=== PATIENT | female | born 1940 | race Caucasian/White ===

== ENCOUNTER → 2016-06-29 | Outpatient (CLI) | payer MEDICARE ==
--- NOTE | 2016-06-29 08:33 | US ---
EXAMINATION TYPE: US pelvic complete DATE OF EXAM: 06/29/2016 8:10 AM COMPARISON: CT in pacs CLINICAL HISTORY: R39.11 Urinary Hesitancy. Intermittent pelvic pain, 2, para 2 TECHNIQUE: Transvaginal (TV) and Transabdominal (TA) transvaginal ultrasound performed for better ev aluation of the uterus Date of LMP: 25 years ago EXAM MEASUREMENTS: Uterus: 5.4 x 3.5 x 3.8 cm Endometrial Stripe: 0.4 cm Right Ovary: not seen Left Ovary: not seen visualized urinary bladder is unremarkable. 1. Uterus: retroverted, heterogeneous echogenicity without any definite lesions seen at this time 2. Endometrium: appears wnl 3. Right Ovary: not seen due to overlying bowel gas 4. Left Ovary: not seen due to overlying bowel gas 5. Bilateral Adnexa: wnl 6. Posterior cul-de-sac: wnl Uterus is somewhat poorly defined likely due to age-related atrophy IMPRESSION: Exam is somewhat limited.
== END ==
LOC: RADUSWWP 07:02
PROVIDERS: ATTEND Family Medicine
DX: N76.0 Acute vaginitis (principal); R39.11 Hesitancy of micturition; J44.9 Chronic obstructive pulmonary disease, unspecified
CPT/HCPCS: 76830; 76856

== ENCOUNTER → 2016-08-03 | Outpatient (CLI) | payer MEDICARE ==
[2016-08-03 13:22] LABS: Basophils # (A) 0.1 k/uL (0-0.2); Basophils % (A) 1 %; CHCM 33.2; Eosinophils # (A) 0.4 k/uL (0-0.7); Eosinophils % (A) 4 %; HCT 37.9 % (34.0-46.0); HDW 2.65; HGB 12.6 gm/dL (11.4-16.0); Luc # (Auto) 0.27; Luc % (Auto) 3; Lymphocytes # (A) 1.8 k/uL (1.0-4.8); Lymphocytes % (A) 21 %; MCH 31.1 pg (25.0-35.0); MCHC 33.1 g/dL (31.0-37.0); MCV 93.9 fL (80.0-100.0); Mean Platelet Volume 7.2; Monocytes # (A) 0.4 k/uL (0-1.0); Monocytes % (A) 5 %; Neutrophils # (A) 5.5 k/uL (1.3-7.7); Neutrophils % (A) 66 %; RBC 4.04 m/uL (3.80-5.40); WBC 8.3 k/uL (3.8-10.6); WBC (Perox) 8.61
[2016-08-03 13:33] LABS: C Reactive Protein 10.6 mg/L (<10.0)
[2016-08-03 14:22] LABS: Erythrocyte Sedimentation Rate 29 mm/hr (0-20)
--- NOTE | 2016-08-10 12:04 | P.ARTDOP ---
Arterial Doppler LOWER EXTREMITY ARTERIAL DOPPLER: DATE OF SERVICE: 08/03/2016 Reason for study: Buttocks and leg pain with walking. Doppler waveforms: Multiphasic bilaterally throughout. Pulse volume recording: []. Pressure gradients: None. Ankle-brachial indices: Greater than 1 bilaterally. Toe pressures: [] on the right, [] on the left Impression: Normal limited study.
== END | disposition home or self-care (01) ==
LOC: RADUSWWP 12:05
PROVIDERS: ATTEND Physical Medicine & Rehabilitation
DX: M54.5 Low back pain (principal); M47.817 Spondylosis without myelopathy or radiculopathy, lumbosacral region; M51.17 Intervertebral disc disorders with radiculopathy, lumbosacral region; R20.2 Paresthesia of skin; M54.2 Cervicalgia; M79.604 Pain in right leg; M79.605 Pain in left leg; M25.551 Pain in right hip; M25.552 Pain in left hip
CPT/HCPCS: 82550; 85025; 85652; 86140; 93922

== ENCOUNTER → 2016-12-02 | Outpatient (CLI) | payer MEDICARE ==
--- NOTE | 2016-12-05 08:40 | MM ---
Reason for exam: screening (asymptomatic). Last mammogram was performed 1 year and 2 months ago. History: Patient is postmenopausal and history of other cancer. Excisional biopsy of the left breast. 2 excisional biopsies of the right breast. Took estrogen for 2 years. Physical Findings: A clinical breast exam by your physician is recommended on an annual basis and results should be correlated with mammographic findings. MG 3D Screening Mammo W/Cad Bilateral CC and MLO view(s) were taken. XCCL view(s) were taken of the left breast. Prior study comparison: October 13, 2015, bilateral MG 3d screening mammo w/cad. The breast tissue is heterogeneously dense. This may lower the sensitivity of mammography. No significant changes when compared with prior studies. ASSESSMENT: Benign, BI-RAD 2 RECOMMENDATION: Routine screening mammogram of both breasts in 1 year.
== END | disposition home or self-care (01) ==
LOC: RADMAMWWP 12:37
PROVIDERS: ATTEND Family Medicine
DX: Z12.31 Encounter for screening mammogram for malignant neoplasm of breast (principal)
CPT/HCPCS: 77063; G0202

== ENCOUNTER → 2017-04-14 | Outpatient (CLI) | payer MEDICARE ==
[2017-04-14 13:34] LABS: HCT 36.7 % (34.0-46.0); HGB 11.9 gm/dL (11.4-16.0); MCH 29.6 pg (25.0-35.0); MCHC 32.3 g/dL (31.0-37.0); MCV 91.6 fL (80.0-100.0); Mean Platelet Volume 8.1; Platelet Count 266 k/uL (150-450); WBC 11.5 k/uL (3.8-10.6)
--- NOTE | 2017-04-14 13:36 | XR ---
EXAMINATION TYPE: XR chest 2V DATE OF EXAM: 04/14/2017 COMPARISON: 10/17/2013 TECHNIQUE: PA and lateral views submitted. HISTORY: Presurgical FINDINGS: The lungs are clear and there is no pneumothorax, pleural effusion, or focal pneumonia. Degenerativ e change of the spine noted. Interstitium slightly prominent but stable. Atherosclerotic change of th e aorta. Linear density right upper lobe most typical of scar or atelectasis. IMPRESSION: 1. No acute process. Degree of chronic interstitial lung disease in the differential diagnosis correl ate clinically.
[2017-04-14 13:44] LABS: ALT 38 U/L (9-52); AST 18 U/L (14-36); Alkaline Phosphatase 70 U/L (38-126); Anion Gap 9 mmol/L; Blood Urea Nitrogen 17 mg/dL (7-17); Calcium 10.6 mg/dL (8.4-10.2); Carbon Dioxide 30 mmol/L (22-30); Chloride 99 mmol/L (98-107); Glucose 105 mg/dL (74-99); Potassium 4.1 mmol/L (3.5-5.1); Sodium 138 mmol/L (137-145); Total Bilirubin 0.3 mg/dL (0.2-1.3); Total Protein 6.6 g/dL (6.3-8.2)
[2017-04-14 13:49] LABS: Appearance,Urine Clear (Clear); Bilirubin,Urine Negative (Negative); Blood,Urine Negative (Negative); Color,Urine Yellow; Glucose,Urine (UA) Negative (Negative); Ketones,Urine Negative (Negative); Leukocyte Esterase,Urine Negative (Negative); Nitrite,Urine Negative (Negative); Protein,Urine Negative (Negative); Specific Gravity,Urine 1.016 (1.001-1.035); Urobilinogen,Urine <2.0 mg/dL (<2.0)
[2017-04-14 14:02] LABS: Partial Thromboplastin Time 24.6 sec (22.0-30.0); Prothrombin Time 9.8 sec (9.0-12.0)
== END | disposition home or self-care (01) ==
LOC: LABPAT 12:34
PROVIDERS: ATTEND Orthopaedic Surgery
DX: Z01.818 Encounter for other preprocedural examination (principal); Z01.812 Encounter for preprocedural laboratory examination; J84.9 Interstitial pulmonary disease, unspecified; I25.2 Old myocardial infarction; R94.31 Abnormal electrocardiogram [ECG] [EKG]; Z79.01 Long term (current) use of anticoagulants
CPT/HCPCS: 36415; 71046; 80053; 81003; 85027; 85610; 85730; 86850; 86900; 86901; 87070; 93005

== ENCOUNTER 2017-04-24 11:08 | Inpatient (IN) | payer MEDICARE ==
[2017-04-12 23:22] VITALS: BMI 37.3
[~2017-04-24 11:08] MED LIST: ACETAMINOPHEN TAB 500 MG TAB PO ONE; CLINDAMYCIN 900 MG in DEXTROSE 5% IN WATER 50 ML IVPB ONE; DEXAMETHASONE SOD PHOSPHATE 10 MG/ML 1 ML VIAL IV ONE; HYDROmorphone 0.5 MG/0.5 ML SYRINGE IVP PRN; MELOXICAM 7.5 MG TAB PO ONE; ONDANSETRON 4 MG/2 ML VIAL IVP ONE; TRANEXAMIC ACID 1,000 MG in SODIUM CHLORIDE 0.9% 50 ML IVPB ONE
[2017-04-24] MEDS ORDERED: LACTATED RINGERS 1,000 ML IV ONE (11:17)
[2017-04-24] MEDS ORDERED: ROPIVACAINE 246.25 MG, EPINEPHrine 0.5 MG, KETOROLAC 30 MG, cloNIDine HCL/PF 80 MCG, WA... MISCELLANE ONE ×5 (11:34)
[2017-04-24] MEDS ORDERED: SCOPOLAMINE 1.5MG/72HR PATCH TRANSDERM ONE (11:37)
[2017-04-24 11:44] LABS: Glucose,Whole Blood 97 mg/dL (75-99)
[2017-04-24] MEDS ORDERED: TRANEXAMIC ACID 1,000 MG/10 ML VIAL ONE (12:10)
[2017-04-24] MEDS ORDERED: fentaNYL (PF) 50 MCG/ML 2 ML AMP ONE (12:10)
[2017-04-24] MEDS ORDERED: PROPOFOL 10 MG/ML 20 ML VIAL IV ONE (12:10)
[2017-04-24] MEDS ORDERED: ePHEDrine SULFATE/0.9% NACL/PF 50 MG/5 ML SYRINGE IV ONE (12:10)
[2017-04-24] MEDS ORDERED: MIDAZOLAM 2 MG/2 ML VIAL ONE (12:10)
[2017-04-24] MEDS ORDERED: CLINDAMYCIN 1,800 MG in SODIUM CHLORIDE 0.9% IRRIGATIO 3,000 ML IRRIGATION ONE (12:10)
[2017-04-24] MEDS ORDERED: HEPARIN SODIUM,PORCINE 10,000 UNIT/ML 1 ML VIAL ONE (12:10)
[2017-04-24] MEDS ORDERED: SODIUM CHLORIDE 0.9% IRRIG 1,000 ML BTL IRRIGATION ONE (12:10)
[2017-04-24] MEDS ORDERED: SODIUM CHLORIDE 0.9% 100 ML BAG ONE (12:10)
--- NOTE | 2017-04-24 13:35 | FL ---
EXAMINATION TYPE: FL guidance operating room DATE OF EXAM: 04/24/2017 HISTORY: Flouroscopy time 35 seconds of fluoroscopy provided. IMPRESSION: 1. Fluoroscopy time.
--- NOTE | 2017-04-24 13:36 | XR ---
EXAMINATION TYPE: XR Hip Limited RT DATE OF EXAM: 04/24/2017 COMPARISON: NONE HISTORY: Postop TECHNIQUE: One view submitted. FINDINGS: There is a prosthetic hip in near anatomic alignment. Portions of the prostheses not included. IMPRESSION: 1. Postoperative change. Appears in near-anatomic alignment.
--- NOTE | 2017-04-24 13:47 | P.OP ---
Date of Procedure: 04/24/17 Preoperative Diagnosis: Severe Osteoarthritis right hip Postoperative Diagnosis: Severe osteoarthritis right hip Procedure(s) Performed: Right total hip arthroplasty with a direct anterior approach Implants: [employer] nephew Polarstem size 2 standard [employer] R3, 3 hole acetabular shell, 48 mm [employer] reflection 6.5 mm cancellus screw, 20 mm 2 [employer] R3, XLPE 20 acetabular liner [employer]hew Oxinium femoral head 32 m, +0 All components were press-fit. The articulation is Oxinium on polyethylene. Anesthesia: spinal Surgeon: Edy Marte Sdet #1: Augustina Sharma Estimated Blood Loss (ml): 200 (67 mL returned with Cell Saver) Pathology: other (Femoral head) Condition: stable Disposition: PACU Indications for Procedure: After failure of conservative treatment we discussed the surgical and nonsurgical treatment options at length. Patient wishes to proceed with a total hip arthroplasty with a direct anterior approach. Complications specific to this procedure were discussed at length, including but not limited to infection, leg length discrepancy, dislocation, and nerve injury. Patient is aware of all these complications and informed consent was obtained Operative Findings: The operative findings are consistent with severe osteoarthritis of the right hip Description of Procedure: Patient was seen and evaluated in the preoperative area, consent was reviewed, and the surgical site was marked with a skin marker. Patient was then brought to the operating room and given prophylactic antibiotics intravenously. 1 g of Tranexamic acid was also given. A spinal anesthetic was administered by the anesthesia department. The patient was then placed on the [place] table with the bony prominences well-padded. The hip area was then prepped and draped in usual sterile fashion. A universal timeout was then performed, which confirmed the patient's name, surgical site, ALLERGIES, and procedure being performed. Next the incision site was located at 1 cm distal and 1 cm lateral to the anterior superior iliac spine. The skin and subcutaneous tissues were sharply incised. Incision was carefully dissected down to the fascia overlying the tensor fascia maggy muscle. This fascia was then incised in line with the incision. Next, using blunt finger dissection, the tensor fascia maggy muscle was dissected off its investing fascia. The muscle was then carefully retracted laterally with a cobra retractor over the lateral neck of the femur. Next, the circumflex vessels were identified and cauterized using the AquaMantis device. The anterior hip capsule was then exposed. The capsule was then opened and an inverted T fashion. Cobra retractors were then placed intracapsularly. The proximal femur was then visualized. The femoral neck was then osteotomized appropriate level above the lesser trochanter. Small amount of traction was placed with the [place] table. A small wedge of bone was then removed from the remaining femoral head. Next, using a corkscrew femoral head was easily removed from the acetabulum. On gross visual inspection, the femoral head had complete loss of articular cartilage in multiple periarticular osteophytes. Attention was then turned to the acetabulum. the acetabulum was exposed and any remaining labrum was excised. Sequential reaming of the acetabulum was performed using fluoroscopic guidance. When the appropriate size was reached, a trial was then placed. The position and fit of the trial was checked with fluoroscopy. The trial was then removed. Then, using fluoroscopic guidance, the final implant was impacted at 20 of anteversion and 40 of abduction, and fully seated in the acetabulum. 2 screws were then placed in the acetabulum. Again fluoroscopy was used to check position of the screws. Next, the liner was then impacted, with a 20 elevated liner located in the anterior superior quadrant. Component locking was confirmed. Attention was then directed to the femur. With the aid of the [place] table, the femur was externally rotated to approximately 130, extended, and abducted under the opposite leg. A side hook was then placed under the proximal femur, and the side hook elevator was used to elevate the proximal femur. Retractors were then placed. A capsular release was performed, as well as a release of the conjoined tendon, which afforded excellent visualization of the proximal femur. Next, a box osteotome was used to lateralize the proximal femur. A roll hand was then used to locate the femoral canal. Sequential broaching was then performed with appropriate size which afforded excellent fixation in the proximal femur. A trial was then placed with appropriate head and neck, and the hip was gently reduced with the aid of the [place] table. Fluoroscopy was then used to check position of the components, as well as to ensure equal leg lengths. The hip was then gently dislocated and the trials were then removed. Final implants were then impacted and the hip was again reduced. Final fluoroscopic x-rays confirmed that the components were in anatomic position, as well as equal leg lengths. The hip was also taken through range of motion, and found to be stable. The hip was then copiously irrigated with antibiotic solution with pulsatile lavage. The hip was then irrigated with Irrisept solution. The soft tissues were then injected with a ropivacaine solution, which consisted of 246.25 mg of ropivacaine, 0.5 mg of epinephrine, 30 mg of Toradol, 80 g of clonidine, and 48.45 mL of sterile water, for a total of 100 mL of fluid injected. A second dose of 1 g of Tranexamic acid was also given. the fascia was then closed with 2-0 strata fix suture. The subcutaneous tissue was closed with 3-0 Vicryl. The subcuticular tissue was closed with 3-0 strata fix suture. The skin was then closed with Dermabond glue and a sterile silver dressing. The patient was then transferred to the recovery room in stable condition. The diversional therapist's assistant BHUMI Packer was required due to the complexity of surgery, and the need for skilled players assistant for positioning, draping, exposure, retraction, and closure of the wound.
[2017-04-24] MEDS: LACTATED RINGERS 1,000 ML IV SCH (13:57)
[2017-04-24] MEDS ORDERED: HYDROmorphone 0.5 MG/0.5 ML SYRINGE IVP PRN ×2 (14:05)
[2017-04-24] MEDS ORDERED: MAGNESIUM HYDROXIDE 2,400 MG/10 ML CUP PO PRN (14:05)
[2017-04-24] MEDS ORDERED: DIAZEPAM 5 MG TAB PO PRN ×2 (14:05)
[2017-04-24] MEDS ORDERED: NALOXONE 0.4 MG/ML 1 ML VIAL IV PRN (14:05)
[2017-04-24] MEDS ORDERED: HYDROcodone/APAP 5-325MG 1 EACH TAB PO PRN (14:05)
[2017-04-24] MEDS ORDERED: ONDANSETRON 4 MG/2 ML VIAL IVP PRN (14:05)
--- NOTE | 2017-04-24 14:36 | XR ---
EXAMINATION TYPE: XR Hip Limited RT DATE OF EXAM: 04/24/2017 COMPARISON: NONE HISTORY: Postop right hip surgery TECHNIQUE: One view submitted. FINDINGS: There is a prosthetic hip in near anatomic alignment. There is soft tissue edema and emphysema. IMPRESSION: 1. Postoperative change. Appears in near-anatomic alignment.
[2017-04-24] MEDS: HYDROmorphone 0.5 MG/0.5 ML SYRINGE IVP PRN ×2 (14:56→21:03)
[2017-04-24] MEDS ORDERED: ALBUTEROL NEBULIZED 2.5 MG/3 ML INHALATION PRN ×2 (15:59)
[2017-04-24] MEDS ORDERED: ALPRAZolam 0.25 MG TAB PO PRN (15:59)
[2017-04-24] MEDS: PANTOPRAZOLE 40 MG TABLET PO SCH (16:46)
[2017-04-24] MEDS: HYDROcodone/APAP 5-325MG 1 EACH TAB PO PRN (16:46)
[2017-04-24] MEDS: SODIUM CHLORIDE 0.9% 1,000 ML IV SCH (16:47)
[2017-04-24] MEDS ORDERED: SODIUM CHLORIDE 0.9% 500 ML IV ONE (17:53)
[2017-04-24] MEDS: ASPIRIN 325 MG TAB PO SCH (20:16)
[2017-04-24] MEDS: CLINDAMYCIN 900 MG in DEXTROSE 5% IN WATER 50 ML IVPB SCH ×2 (20:16)
[2017-04-24] MEDS: FAMOTIDINE 20 MG TAB PO SCH (20:16)
[2017-04-24] MEDS: SENNOSIDES-DOCUSATE SODIUM 1 EACH TAB PO SCH (20:16)
[2017-04-25] MEDS: HYDROmorphone 0.5 MG/0.5 ML SYRINGE IVP PRN (02:10)
[2017-04-25] MEDS: SODIUM CHLORIDE 0.9% 1,000 ML IV SCH ×3 (02:13→21:02)
[2017-04-25] MEDS: CLINDAMYCIN 900 MG in DEXTROSE 5% IN WATER 50 ML IVPB SCH ×2 (04:38)
[2017-04-25] MEDS: HYDROcodone/APAP 5-325MG 1 EACH TAB PO PRN ×3 (04:54→22:33)
[2017-04-25] MEDS: LACTATED RINGERS 1,000 ML IV SCH (05:41)
[2017-04-25 07:13] LABS: Basophils % (A) 0 %; Eosinophils % (A) 0 %; HCT 31.4 % (34.0-46.0); Lymphocytes # (A) 1.3 k/uL (1.0-4.8); Lymphocytes % (A) 9 %; MCH 29.4 pg (25.0-35.0); MCHC 31.4 g/dL (31.0-37.0); MCV 93.6 fL (80.0-100.0); Mean Platelet Volume 7.6; Monocytes # (A) 0.6 k/uL (0-1.0); Monocytes % (A) 4 %; Neutrophils # (A) 11.7 k/uL (1.3-7.7); Neutrophils % (A) 85 %; Platelet Count 272 k/uL (150-450); RBC 3.36 m/uL (3.80-5.40); RDW 13.3 % (11.5-15.5); WBC 13.7 k/uL (3.8-10.6)
[2017-04-25 07:26] LABS: HGB 9.9 gm/dL (11.4-16.0)
[2017-04-25] MEDS: ATENOLOL 50 MG TAB PO SCH (08:05)
[2017-04-25] MEDS: amLODIPine 5 MG TAB PO SCH (08:05)
[2017-04-25] MEDS: ASPIRIN 325 MG TAB PO SCH ×2 (08:05→19:50)
[2017-04-25] MEDS: PANTOPRAZOLE 40 MG TABLET PO SCH ×2 (08:05→16:39)
[2017-04-25] MEDS: DONEPEZIL 5 MG TAB PO SCH (08:06)
[2017-04-25] MEDS: MELOXICAM 7.5 MG TAB PO SCH (08:06)
[2017-04-25] MEDS: buPROPion XL 300 MG TAB.ER.24H PO SCH (08:06)
[2017-04-25] MEDS: LORATADINE 10 MG TAB PO SCH (08:06)
[2017-04-25] MEDS: FAMOTIDINE 20 MG TAB PO SCH ×2 (08:06→19:50)
[2017-04-25] MEDS: ESCITALOPRAM 20 MG TAB PO SCH (08:06)
[2017-04-25] MEDS: VIT A,C & E-LUTEIN-MINERALS 1 EACH TAB PO SCH (08:07)
[2017-04-25] MEDS: SPIRONOLACTONE-HCTZ 25-25MG 1 EACH TAB PO SCH (08:07)
[2017-04-25] MEDS: CHOLECALCIFEROL 1,000 UNIT TAB PO SCH (08:12)
--- NOTE | 2017-04-25 11:11 | P.CONS ---
History of Present Illness - Reason for Consult Consult date: 04/25/17 Medical management - Chief Complaint Right hip osteoarthritis - History of Present Illness This is a 76-year-old female with past medical history noted below who was admitted to the hospital for elective total right hip arthroplasty. Patient is postoperative day #1. She is doing fairly well. She was sitting up in the chair when I saw her. She does not have any specific concerns or complaints. I was asked to see her for medical management. Review of Systems Review of system: 14 points review of systems were obtained and were negative except to what were mentioned in the HPI. Past Medical History Past Medical History: Cancer, COPD, GERD/Reflux, Hyperlipidemia, Hypertension, Osteoarthritis (OA) Additional Past Medical History / Comment(s): HIATAL HERNIA, HX SKIN CANCER , HEART MURMUR, BACK & HIP PAIN- USES CANE PRN. History of Any Multi-Drug Resistant Organisms: None Reported Past Surgical History: Bariatric Surgery, Bladder Surgery, Heart Catheterization , Joint Replacement, Orthopedic Surgery, Tonsillectomy Additional Past Surgical History / Comment(s): left shoulder surgery, rt knee replacement, bladder suspension, LAP BAND INSERTED AND REMOVED AFTER 1 YEAR., HEART CATH([facility]-2009?) TRH Past Anesthesia/Blood Transfusion Reactions: No Reported Reaction, Motion Sickness Past Psychological History: Anxiety, Depression Smoking Status: Former smoker Past Alcohol Use History: None Reported, Occasional Additional Past Alcohol Use History / Comment(s): SMOKED AGE 18 - 35 YRS OLD., SMOKED 8 CIGARETTES / DAY. Past Drug Use History: None Reported - Past Family History Mother Family Medical History: No Reported History Medications and Allergies Home Medications Medication Instructions Recorded Confirmed Type Atenolol [Tenormin] 50 mg PO DAILY 12/08/14 04/24/17 History Escitalopram Oxalate [Lexapro] 20 mg PO DAILY 12/08/14 04/24/17 History Pantoprazole Sodium [Protonix] 40 mg PO BID 12/08/14 04/24/17 History Ranitidine HCl [Zantac] 300 mg PO BID 12/08/14 04/24/17 History Spironolactone-Hctz 25-25Mg 1 tab PO DAILY 12/08/14 04/24/17 History [Aldactazide 25-25Mg] Vits A,C,E/Lutein/Minerals 1 tab PO DAILY 12/08/14 04/24/17 History [Ocuvite with Lutein Tablet] amLODIPine [Norvasc] 5 mg PO DAILY 12/08/14 04/24/17 History Cholecalciferol [Vitamin D3] 5,000 unit PO DAILY 01/19/15 04/24/17 History ALPRAZolam [Xanax] 0.25 mg PO DAILY PRN 04/12/17 04/24/17 History Albuterol Inhaler [Ventolin Hfa 1 - 2 puff INHALATION RT-Q6H PRN 04/12/17 History Inhaler] Donepezil HCl [Aricept] 5 mg PO DAILY 04/12/17 04/24/17 History HYDROcodone/APAP 7.5-325MG [[place] 1 tab PO Q4H PRN 04/12/17 04/24/17 History 7.5-325] Ibuprofen [Motrin] 600 mg PO Q8HR PRN 04/12/17 04/24/17 History Loratadine [Claritin] 10 mg PO DAILY 04/12/17 04/24/17 History Ubidecarenone [Co Q-10] 100 mg PO DAILY 04/12/17 04/24/17 History Albuterol Nebulized [Ventolin 2.5 mg INHALATION RT-DAILY PRN 04/24/17 04/24/17 History Nebulized] buPROPion XL [Wellbutrin Xl] 300 mg PO DAILY 04/24/17 04/24/17 History Allergies Allergy/AdvReac Type Severity Reaction Status Date / Time celecoxib [From Celebrex] Allergy Rash/Hives Verified 04/24/17 14:17 cephalexin monohydrate Allergy Rash/Hives Verified 04/24/17 14:17 [From Keflex] Penicillins Allergy Rash/Hives Verified 04/24/17 14:17 Sulfa (Sulfonamide Allergy Rash/Hives Verified 04/24/17 14:17 Antibiotics) [id number] Reductase AdvReac MUSCLE PAIN Verified 04/24/17 14:17 Inhibitor Physical Exam Vitals: Vital Signs Temp Pulse Pulse Resp BP Pulse Ox 04/25/17 06:57 98.9 F 72 14 121/69 97 04/25/17 02:44 98.1 F 88 16 124/91 96 04/24/17 20:50 98.3 F 16 122/75 93 L 04/24/17 16:30 67 133/59 04/24/17 16:15 68 134/65 04/24/17 16:00 67 127/61 04/24/17 15:45 68 138/60 04/24/17 15:30 67 133/68 04/24/17 15:15 68 127/56 04/24/17 15:00 132/61 04/24/17 14:45 98.1 F 68 16 141/59 90 L 04/24/17 14:30 67 16 134/61 97 04/24/17 14:15 68 16 134/63 97 04/24/17 14:00 65 16 131/61 97 04/24/17 13:49 97.6 F 71 16 130/60 94 L 04/24/17 11:27 97.8 F 74 18 160/68 94 L Intake and Output 04/24/17 04/25/17 04/25/17 22:59 06:59 14:59 Intake Total 650 1400 Output Total 180 300 Balance 470 1400 -300 Intake: Intake, IV Titration 300 800 Amount Clindamycin 900 mg In 50 Dextrose 5% in Water 50 ml @ 100 mls/hr IVPB Q8H EDITH Rx#:[id number] Sodium Chloride 0.9% 1, 250 800 000 ml @ 100 mls/hr IV . Q10H EDITH Rx#:[id number] Oral 350 600 Output: Urine 180 300 Straight 180 Other: Voiding Method Bedside Commode # Voids 1 3 1 General: The patient is awake and alert, in no distress Eye: there is normal conjunctiva bilaterally. Neck: The neck is supple, there is no JVD. Cardiovascular: Normal S1-S2, no S3-S4, no murmurs. Respiratory: Lungs clear to auscultation bilaterally Gastrointestinal: Abdomen is soft, nontender Musculoskeletal: There is no pedal edema. Neurological:. Speech is normal. Skin: Skin is warm and dry Results CBC & Chem 7: 04/25/17 06:12 Labs: Abnormal Lab Results - Last 24 Hours (Table) 04/25/17 Range/Units 06:12 WBC 13.7 H (3.8-10.6) k/uL RBC 3.36 L (3.80-5.40) m/uL Hgb 9.9 L D (11.4-16.0) gm/dL Hct 31.4 L (34.0-46.0) % Neutrophils # 11.7 H (1.3-7.7) k/uL Assessment and Plan Assessment: 1. Postoperative day #1 status post total right hip arthroplasty. Continue postoperative care. Orthopedic following closely. 2. DVT prophylaxis with full dose aspirin twice daily per orthopedic protocol 3. Physical debility: PT/OT following. Plan for subacute rehab upon discharge 4. Essential hypertension: Blood pressure well-controlled 5. GERD 6. Mild cognitive impairment/dementia Today, I reviewed her medication list and lab work results. Continue current regimen. I will continue to follow up on the patient closely. Thank you very much for the consultation.
--- NOTE | 2017-04-25 14:38 | XR ---
EXAMINATION TYPE: XR chest 1V DATE OF EXAM: 04/25/2017 COMPARISON: Prior chest x-ray 04/14/2017 HISTORY: Rehabilitation placement TECHNIQUE: Single frontal view of the chest is obtained. FINDINGS: There is no focal air space opacity, pleural effusion, or pneumothorax seen. The cardiac silhouette size is stable, heart is borderline enlarged which may be accentuated by rotation. The o sseous structures are intact. IMPRESSION: No acute abnormality.
--- NOTE | 2017-04-25 15:53 | P.PN ---
Subjective Progress Note Date: 04/25/17 This is a 76-year-old female who is status post right total hip arthroplasty. This is postoperative day #1. Patient states her pain is under control. Patient states she has been up and walking with physical therapy. Patient denies any fever/chills, shortness of breath, calf pain, abdominal pain, numbness, weakness or tingling. Objective - Vital Signs Vital signs: Vital Signs Temp 98.6 F 04/25/17 15:20 Pulse 70 04/25/17 15:20 Resp 15 04/25/17 15:20 BP 120/66 04/25/17 15:20 Pulse Ox 98 04/25/17 15:20 Intake & Output 04/24/17 04/25/17 04/25/17 18:59 06:59 18:59 Intake Total 957 2050 200 Output Total 380 300 Balance 577 0 -100 Weight 92.533 kg Intake: IV 957 Intake, IV Titration 1100 200 Amount Clindamycin 900 mg In 50 Dextrose 5% in Water 50 ml @ 100 mls/hr IVPB Q8H EDITH Rx#:[id number] Sodium Chloride 0.9% 1, 1050 200 000 ml @ 100 mls/hr IV . Q10H EDITH Rx#:[id number] Oral 950 Output: Urine 180 300 Straight 180 Estimated Blood Loss 200 Other: Voiding Method Bedside Commode # Voids 3 1 - Exam Vital signs are stable. Patient is in no acute distress and is alert and oriented 3. Calf is soft and nontender. Dressing is clean, dry, and intact. Neurovascular status intact. Patient has full foot and ankle motion. - Labs CBC & Chem 7: 04/25/17 06:12 Labs: Abnormal Lab Results - Last 24 Hours (Table) 04/25/17 Range/Units 06:12 WBC 13.7 H (3.8-10.6) k/uL RBC 3.36 L (3.80-5.40) m/uL Hgb 9.9 L D (11.4-16.0) gm/dL Hct 31.4 L (34.0-46.0) % Neutrophils # 11.7 H (1.3-7.7) k/uL Assessment and Plan (1) Primary osteoarthritis of right hip Current Visit: Yes Status: Acute Code(s): M16.11 - UNILATERAL PRIMARY OSTEOARTHRITIS, RIGHT HIP SNOMED Code(s): 822660755 (2) S/P total hip arthroplasty Current Visit: Yes Status: Acute Code(s): Z96.649 - PRESENCE OF UNSPECIFIED ARTIFICIAL HIP JOINT SNOMED Code(s): 004412025529 Plan: Continue routine postop care. Continue antocoagulation. Weightbearing as tolerated with a walker Leave dressing in place for 1 week. Possible discharge to rehab .
[2017-04-25] MEDS: SENNOSIDES-DOCUSATE SODIUM 1 EACH TAB PO SCH (19:52)
[2017-04-26] MEDS: HYDROcodone/APAP 5-325MG 1 EACH TAB PO PRN ×3 (05:35→16:51)
[2017-04-26] MEDS: hydrOXYzine PAMOATE 25 MG CAP PO PRN ×2 (05:35→11:48)
[2017-04-26] MEDS: ASPIRIN 325 MG TAB PO SCH ×2 (07:31→20:16)
[2017-04-26] MEDS: PANTOPRAZOLE 40 MG TABLET PO SCH ×2 (07:31→16:53)
[2017-04-26] MEDS: FAMOTIDINE 20 MG TAB PO SCH ×2 (07:31→20:16)
[2017-04-26] MEDS: buPROPion XL 300 MG TAB.ER.24H PO SCH (07:31)
[2017-04-26] MEDS: ESCITALOPRAM 20 MG TAB PO SCH (07:31)
[2017-04-26] MEDS: amLODIPine 5 MG TAB PO SCH (07:31)
[2017-04-26] MEDS: VIT A,C & E-LUTEIN-MINERALS 1 EACH TAB PO SCH (07:31)
[2017-04-26] MEDS: DONEPEZIL 5 MG TAB PO SCH (07:31)
[2017-04-26] MEDS: ATENOLOL 50 MG TAB PO SCH (07:31)
[2017-04-26] MEDS: MELOXICAM 7.5 MG TAB PO SCH (07:32)
[2017-04-26] MEDS: SPIRONOLACTONE-HCTZ 25-25MG 1 EACH TAB PO SCH (07:32)
[2017-04-26] MEDS: LORATADINE 10 MG TAB PO SCH (07:32)
[2017-04-26] MEDS: LACTATED RINGERS 1,000 ML IV SCH (07:34)
[2017-04-26] MEDS: SODIUM CHLORIDE 0.9% 1,000 ML IV SCH ×2 (07:35→23:44)
--- NOTE | 2017-04-26 09:25 | P.PN ---
Subjective Progress Note Date: 04/26/17 This is a 76-year-old female who is status post right total hip arthroplasty. This is postoperative day #2. Patient was seen and evaluated at bedside with Dr. Edy Marte. Patient states her pain is under control and she denies any new complaints today. Objective - Vital Signs Vital signs: Vital Signs Temp 99 F 04/26/17 08:00 Pulse 63 04/26/17 08:00 Resp 17 04/26/17 08:00 BP 137/65 04/26/17 08:00 Pulse Ox 94 L 04/26/17 08:00 Intake & Output 04/25/17 04/26/17 04/26/17 18:59 06:59 18:59 Intake Total 200 740 180 Output Total 300 Balance -100 740 180 Intake: Intake, IV Titration 200 Amount Sodium Chloride 0.9% 1, 200 000 ml @ 100 mls/hr IV . Q10H EDITH Rx#:[id number] Oral 740 180 Output: Urine 300 Other: # Voids 1 1 1 - Exam Vital signs are stable. Patient is in no acute distress and is alert and oriented 3. Calf is soft and nontender. Dressing is clean, dry, and intact. Neurovascular status intact. Patient has full foot and ankle motion without difficulty or pain. - Labs CBC & Chem 7: 04/25/17 06:12 Assessment and Plan (1) Primary osteoarthritis of right hip Current Visit: Yes Status: Acute Code(s): M16.11 - UNILATERAL PRIMARY OSTEOARTHRITIS, RIGHT HIP SNOMED Code(s): 202619240 (2) S/P total hip arthroplasty Current Visit: Yes Status: Acute Code(s): Z96.649 - PRESENCE OF UNSPECIFIED ARTIFICIAL HIP JOINT SNOMED Code(s): 495280984405 Plan: Continue routine postop care. Continue antocoagulation. Weightbearing as tolerated with a walker Leave dressing in place for 1 week. Possible discharge to rehab .
--- NOTE | 2017-04-26 11:33 | P.PN ---
Subjective Progress Note Date: 04/26/17 Patient is doing fairly well today. No events overnight. Objective - Vital Signs Vital signs: Vital Signs Temp 99 F 04/26/17 08:00 Pulse 63 04/26/17 08:00 Resp 17 04/26/17 08:00 BP 137/65 04/26/17 08:00 Pulse Ox 94 L 04/26/17 08:00 Intake & Output 04/25/17 04/26/17 04/26/17 18:59 06:59 18:59 Intake Total 200 740 180 Output Total 300 Balance -100 740 180 Intake: Intake, IV Titration 200 Amount Sodium Chloride 0.9% 1, 200 000 ml @ 100 mls/hr IV . Q10H EDITH Rx#:[id number] Oral 740 180 Output: Urine 300 Other: # Voids 1 1 1 - Exam General: The patient is awake and alert, in no distress Eye: there is normal conjunctiva bilaterally. Neck: The neck is supple, there is no JVD. Cardiovascular: Normal S1-S2, no S3-S4, no murmurs. Respiratory: Lungs clear to auscultation bilaterally Gastrointestinal: Abdomen is soft, nontender Musculoskeletal: There is no pedal edema. Neurological:. Speech is normal. Skin: Skin is warm and dry - Labs CBC & Chem 7: 04/25/17 06:12 Assessment and Plan Assessment: 1. Postoperative day #2 status post total right hip arthroplasty. Continue postoperative care. Orthopedic following closely. 2. DVT prophylaxis with full dose aspirin twice daily per orthopedic protocol 3. Physical debility: PT/OT following. Plan for subacute rehab upon discharge 4. Essential hypertension: Blood pressure well-controlled 5. GERD 6. Mild cognitive impairment/dementia 7. Leukocytosis: Most likely reactive. We will order repeat CBC today. Today, I reviewed her medication list and lab work results. Continue current regimen. I will continue to follow up on the patient closely. Thank you very much for the consultation.
[2017-04-26] MEDS: CHOLECALCIFEROL 1,000 UNIT TAB PO SCH (11:49)
[2017-04-26 11:52] LABS: Basophils # (A) 0.1 k/uL (0-0.2); Basophils % (A) 1 %; Eosinophils # (A) 0.7 k/uL (0-0.7); Eosinophils % (A) 5 %; HCT 33.4 % (34.0-46.0); HGB 10.5 gm/dL (11.4-16.0); Lymphocytes % (A) 17 %; MCH 29.6 pg (25.0-35.0); MCHC 31.3 g/dL (31.0-37.0); MCV 94.4 fL (80.0-100.0); Mean Platelet Volume 7.3; Monocytes # (A) 0.7 k/uL (0-1.0); Monocytes % (A) 6 %; Neutrophils # (A) 8.5 k/uL (1.3-7.7); Neutrophils % (A) 70 %; Platelet Count 309 k/uL (150-450); RBC 3.54 m/uL (3.80-5.40); RDW 13.4 % (11.5-15.5); WBC 12.2 k/uL (3.8-10.6)
[2017-04-26 12:31] LABS: ALT 50 U/L (9-52); AST 63 U/L (14-36); Albumin 3.6 g/dL (3.5-5.0); Alkaline Phosphatase 63 U/L (38-126); Anion Gap 9 mmol/L; Blood Urea Nitrogen 15 mg/dL (7-17); Calcium 10.1 mg/dL (8.4-10.2); Carbon Dioxide 28 mmol/L (22-30); Chloride 103 mmol/L (98-107); Glucose 102 mg/dL (74-99); Potassium 4.5 mmol/L (3.5-5.1); Sodium 140 mmol/L (137-145); Total Bilirubin 0.3 mg/dL (0.2-1.3); Total Protein 6.2 g/dL (6.3-8.2)
[2017-04-26] MEDS: SENNOSIDES-DOCUSATE SODIUM 1 EACH TAB PO SCH (20:16)
[2017-04-27] MEDS: HYDROcodone/APAP 5-325MG 1 EACH TAB PO PRN (03:38)
[2017-04-27] MEDS: SODIUM CHLORIDE 0.9% 1,000 ML IV SCH ×3 (03:58→20:18)
[2017-04-27] MEDS: LACTATED RINGERS 1,000 ML IV SCH (05:17)
[2017-04-27 06:43] LABS: Basophils # (A) 0.1 k/uL (0-0.2); Basophils % (A) 1 %; Eosinophils # (A) 0.6 k/uL (0-0.7); Eosinophils % (A) 6 %; HCT 30.1 % (34.0-46.0); HGB 9.4 gm/dL (11.4-16.0); Lymphocytes # (A) 1.6 k/uL (1.0-4.8); Lymphocytes % (A) 16 %; MCH 29.1 pg (25.0-35.0); MCHC 31.2 g/dL (31.0-37.0); MCV 93.3 fL (80.0-100.0); Mean Platelet Volume 7.3; Monocytes # (A) 0.5 k/uL (0-1.0); Monocytes % (A) 5 %; Neutrophils % (A) 71 %; Platelet Count 270 k/uL (150-450); RBC 3.22 m/uL (3.80-5.40); RDW 13.5 % (11.5-15.5); WBC 9.9 k/uL (3.8-10.6)
[2017-04-27] MEDS: FAMOTIDINE 20 MG TAB PO SCH (07:36)
[2017-04-27] MEDS: ASPIRIN 325 MG TAB PO SCH ×2 (07:36→20:17)
[2017-04-27] MEDS: PANTOPRAZOLE 40 MG TABLET PO SCH ×2 (07:36→17:47)
[2017-04-27] MEDS: amLODIPine 5 MG TAB PO SCH (07:36)
[2017-04-27] MEDS: MELOXICAM 7.5 MG TAB PO SCH (07:36)
[2017-04-27] MEDS: LORATADINE 10 MG TAB PO SCH (07:37)
[2017-04-27] MEDS: buPROPion XL 300 MG TAB.ER.24H PO SCH (07:37)
[2017-04-27] MEDS: DONEPEZIL 5 MG TAB PO SCH (07:37)
[2017-04-27] MEDS: ATENOLOL 50 MG TAB PO SCH (07:37)
[2017-04-27] MEDS: ESCITALOPRAM 20 MG TAB PO SCH (07:38)
[2017-04-27] MEDS: VIT A,C & E-LUTEIN-MINERALS 1 EACH TAB PO SCH (07:38)
[2017-04-27] MEDS: SPIRONOLACTONE-HCTZ 25-25MG 1 EACH TAB PO SCH (07:38)
[2017-04-27] MEDS: CHOLECALCIFEROL 1,000 UNIT TAB PO SCH (07:38)
[2017-04-27] MEDS ORDERED: HYDROcodone/APAP 7.5-325MG 1 EACH TAB PO PRN (08:57)
--- NOTE | 2017-04-27 08:59 | P.DS ---
Providers Date of admission: 04/24/17 11:08 Expected date of discharge: 04/27/17 Attending physician: Edy Marte Consults: 04/24/17 14:05 Consult Physician Routine Consulting Provider: Jonathan Avila Consult Reason/Comments: medical management Do you want consulting provider notified?: Yes Primary care physician: Ngoc Schwarz - Discharge Diagnosis(es) (1) Primary osteoarthritis of right hip Current Visit: Yes Status: Acute (2) S/P total hip arthroplasty Current Visit: Yes Status: Acute Hospital Course: This is a 76-year-old female with known history of degenerative arthritis of the right hip. The patient presents for evaluation. After discussion and consideration patient elects to proceed with total hip arthroplasty. The patient is seen preoperatively by Dr. Marte and cleared for surgery. Patient is admitted to [facility] on 04/24/2017 for total hip arthroplasty. The procedures performed without complication or sequelae. The patient is doing well postoperatively. Labs and vital signs are stable on day of discharge. On day of discharge patient's hip incision is healing well. There is minimal erythema. There is no drainage noted at this time. There is minimal soft tissue swelling to the hip and thigh. Patient has full foot and ankle motion without difficulty or pain. Neurovascular status to the right lower extremity is intact. Patient is discharged to rehab in good condition.Please see med rec for accurate list of home medications. Plan - Discharge Summary Discharge Rx Participant: Yes New Discharge Prescriptions: New Aspirin 325 mg PO BID #60 tab Sennosides [Senokot] 1 tab PO BID #60 tablet HYDROcodone/APAP 7.5-325MG [[place] 7.5-325] 1 - 2 tab PO Q4-6H PRN #90 tab PRN Reason: Pain No Action Spironolactone-Hctz 25-25Mg [Aldactazide 25-25Mg] 1 tab PO DAILY Escitalopram Oxalate [Lexapro] 20 mg PO DAILY Atenolol [Tenormin] 50 mg PO DAILY Vits A,C,E/Lutein/Minerals [Ocuvite with Lutein Tablet] 1 tab PO DAILY Ranitidine HCl [Zantac] 300 mg PO BID Pantoprazole Sodium [Protonix] 40 mg PO BID amLODIPine [Norvasc] 5 mg PO DAILY Cholecalciferol [Vitamin D3] 5,000 unit PO DAILY Ibuprofen [Motrin] 600 mg PO Q8HR PRN PRN Reason: Pain HYDROcodone/APAP 7.5-325MG [[place] 7.5-325] 1 tab PO Q4H PRN PRN Reason: Pain Albuterol Inhaler [Ventolin Hfa Inhaler] 1 - 2 puff INHALATION RT-Q6H PRN PRN Reason: Shortness Of Breath Loratadine [Claritin] 10 mg PO DAILY ALPRAZolam [Xanax] 0.25 mg PO DAILY PRN PRN Reason: Anxiety Ubidecarenone [Co Q-10] 100 mg PO DAILY Donepezil HCl [Aricept] 5 mg PO DAILY Albuterol Nebulized [Ventolin Nebulized] 2.5 mg INHALATION RT-DAILY PRN PRN Reason: Shortness Of Breath buPROPion XL [Wellbutrin Xl] 300 mg PO DAILY Discharge Medication List Atenolol [Tenormin] 50 mg PO DAILY 12/08/14 [History] Escitalopram Oxalate [Lexapro] 20 mg PO DAILY 12/08/14 [History] Pantoprazole Sodium [Protonix] 40 mg PO BID 12/08/14 [History] Ranitidine HCl [Zantac] 300 mg PO BID 12/08/14 [History] Spironolactone-Hctz 25-25Mg [Aldactazide 25-25Mg] 1 tab PO DAILY 12/08/14 [ History] Vits A,C,E/Lutein/Minerals [Ocuvite with Lutein Tablet] 1 tab PO DAILY 12/08/14 [History] amLODIPine [Norvasc] 5 mg PO DAILY 12/08/14 [History] Cholecalciferol [Vitamin D3] 5,000 unit PO DAILY 01/19/15 [History] ALPRAZolam [Xanax] 0.25 mg PO DAILY PRN 04/12/17 [History] Albuterol Inhaler [Ventolin Hfa Inhaler] 1 - 2 puff INHALATION RT-Q6H PRN [History] Donepezil HCl [Aricept] 5 mg PO DAILY 04/12/17 [History] HYDROcodone/APAP 7.5-325MG [[place] 7.5-325] 1 tab PO Q4H PRN 04/12/17 [History] Ibuprofen [Motrin] 600 mg PO Q8HR PRN 04/12/17 [History] Loratadine [Claritin] 10 mg PO DAILY 04/12/17 [History] Ubidecarenone [Co Q-10] 100 mg PO DAILY 04/12/17 [History] Albuterol Nebulized [Ventolin Nebulized] 2.5 mg INHALATION RT-DAILY PRN [History] buPROPion XL [Wellbutrin Xl] 300 mg PO DAILY 04/24/17 [History] Aspirin 325 mg PO BID #60 tab 04/27/17 [Rx] HYDROcodone/APAP 7.5-325MG [[place] 7.5-325] 1 - 2 tab PO Q4-6H PRN #90 tab [Rx] Sennosides [Senokot] 1 tab PO BID #60 tablet 04/27/17 [Rx] Follow up Appointment(s)/Referral(s): [facility], [NON-STAFF] - As Needed Edy Marte DO [Doctor of Osteopathic Medicine] - 2 Weeks Patient Instructions/Handouts: *Surgery [facility] - Scopalamine Patch Instructions Activity/Diet/Wound Care/Special Instructions: Weightbearing as tolerated with walker Leave dressing intact. Dressing may be removed by home care nurse in 7 days, . May shower with dressing on. Follow-up with [facility] in 2 weeks, please call with any questions or concerns [phone] Discharge Disposition: TRANSFER TO SNF/ECF
[2017-04-27] MEDS: HYDROcodone/APAP 7.5-325MG 1 EACH TAB PO PRN ×2 (11:29→19:25)
--- NOTE | 2017-04-27 12:43 | P.PN ---
Subjective Patient is doing fairly well today. No events overnight. Objective - Vital Signs Vital signs: Vital Signs Temp 99.5 F 04/27/17 07:26 Pulse 79 04/27/17 07:26 Resp 16 04/27/17 07:26 BP 129/78 04/27/17 07:26 Pulse Ox 92 L 04/27/17 07:26 Intake & Output 04/26/17 04/27/17 04/27/17 18:59 06:59 18:59 Intake Total 580 550 237 Balance 580 550 237 Intake: Oral 580 550 237 Other: Voiding Method Toilet # Voids 2 2 1 - Exam General: The patient is awake and alert, in no distress Eye: there is normal conjunctiva bilaterally. Neck: The neck is supple, there is no JVD. Cardiovascular: Normal S1-S2, no S3-S4, no murmurs. Respiratory: Lungs clear to auscultation bilaterally Gastrointestinal: Abdomen is soft, nontender Musculoskeletal: There is no pedal edema. Neurological:. Speech is normal. Skin: Skin is warm and dry - Labs CBC & Chem 7: 04/27/17 06:11 04/26/17 11:41 Labs: Abnormal Lab Results - Last 24 Hours (Table) 04/27/17 Range/Units 06:11 RBC 3.22 L (3.80-5.40) m/uL Hgb 9.4 L (11.4-16.0) gm/dL Hct 30.1 L (34.0-46.0) % Assessment and Plan Assessment: 1. status post total right hip arthroplasty. Continue postoperative care. Orthopedic following closely. 2. DVT prophylaxis with full dose aspirin twice daily per orthopedic protocol 3. Physical debility: PT/OT following. Plan for subacute rehab upon discharge 4. Essential hypertension: Blood pressure well-controlled 5. GERD 6. Mild cognitive impairment/dementia 7. Leukocytosis: Resolved. Most likely reactive. Patient is medically cleared for discharge. She is going to [facility] for subacute rehab.
[2017-04-27] MEDS: SENNOSIDES-DOCUSATE SODIUM 1 EACH TAB PO SCH (20:17)
[2017-04-28 01:55] VITALS: RESP 16
[2017-04-28] MEDS: HYDROcodone/APAP 7.5-325MG 1 EACH TAB PO PRN ×2 (04:04→12:49)
[2017-04-28] MEDS: LACTATED RINGERS 1,000 ML IV SCH (05:40)
[2017-04-28] MEDS: SODIUM CHLORIDE 0.9% 1,000 ML IV SCH ×2 (07:37→07:40)
[2017-04-28] MEDS: ASPIRIN 325 MG TAB PO SCH (07:38)
[2017-04-28] MEDS: MELOXICAM 7.5 MG TAB PO SCH (07:38)
[2017-04-28] MEDS: PANTOPRAZOLE 40 MG TABLET PO SCH (07:38)
[2017-04-28] MEDS: DONEPEZIL 5 MG TAB PO SCH (07:39)
[2017-04-28] MEDS: ESCITALOPRAM 20 MG TAB PO SCH (07:39)
[2017-04-28] MEDS: ATENOLOL 50 MG TAB PO SCH (07:39)
[2017-04-28] MEDS: VIT A,C & E-LUTEIN-MINERALS 1 EACH TAB PO SCH (07:39)
[2017-04-28] MEDS: LORATADINE 10 MG TAB PO SCH (07:39)
[2017-04-28] MEDS: CHOLECALCIFEROL 1,000 UNIT TAB PO SCH (07:39)
[2017-04-28] MEDS: amLODIPine 5 MG TAB PO SCH (07:40)
[2017-04-28] MEDS: SPIRONOLACTONE-HCTZ 25-25MG 1 EACH TAB PO SCH (07:40)
[2017-04-28] MEDS: buPROPion XL 300 MG TAB.ER.24H PO SCH (07:40)
[2017-04-28 14:18] VITALS: BP 115/56; PULSE 71; TEMP 98.7
== END 2017-04-28 16:30 | DRG 470 ==
LOC: 2ORMAIN 11:08 → 3SUR 13:51
PROVIDERS: ADMIT Orthopaedic Surgery; ATTEND Orthopaedic Surgery
PROC: 0SR906A Replacement of Right Hip Joint with Oxidized Zirconium on Polyethylene Synthetic Substitute, Uncemented, Open Approach (ICD-10-PCS; principal; 2017-04-24 12:30)
DX: M16.11 Unilateral primary osteoarthritis, right hip (principal); J44.9 Chronic obstructive pulmonary disease, unspecified; F03.90 Unspecified dementia, unspecified severity, without behavioral disturbance, psychotic disturbance, mood disturbance, and anxiety; D72.829 Elevated white blood cell count, unspecified; E78.5 Hyperlipidemia, unspecified; I10 Essential (primary) hypertension; Z96.651 Presence of right artificial knee joint; K21.9 Gastro-esophageal reflux disease without esophagitis; Z79.899 Other long term (current) drug therapy; Z85.828 Personal history of other malignant neoplasm of skin; Z87.891 Personal history of nicotine dependence; Z79.82 Long term (current) use of aspirin; Z79.891 Long term (current) use of opiate analgesic; Z88.1 Allergy status to other antibiotic agents; Z88.0 Allergy status to penicillin; Z88.2 Allergy status to sulfonamides; Z83.3 Family history of diabetes mellitus; Z82.49 Family history of ischemic heart disease and other diseases of the circulatory system
CPT/HCPCS: 71045; 73501; 80053; 85025; 86850; 86891; 86900; 86901; 88300

== ENCOUNTER 2017-05-19 18:19 | Emergency (ER) | payer MEDICARE ==
[2017-05-19 18:34] VITALS: TEMP 99
[2017-05-19 19:08] VITALS: RESP 18
[2017-05-19 19:18] LABS: Basophils # (A) 0.1 k/uL (0-0.2); Basophils % (A) 1 %; Eosinophils % (A) 8 %; HGB 10.3 gm/dL (11.4-16.0); Hypochromasia Slight; Lymphocytes % (A) 17 %; MCH 28.9 pg (25.0-35.0); MCV 90.2 fL (80.0-100.0); Mean Platelet Volume 6.9; Monocytes # (A) 0.6 k/uL (0-1.0); Monocytes % (A) 5 %; Neutrophils # (A) 7.8 k/uL (1.3-7.7); Neutrophils % (A) 67 %; Platelet Count 423 k/uL (150-450); RBC 3.55 m/uL (3.80-5.40); RDW 13.5 % (11.5-15.5); WBC 11.6 k/uL (3.8-10.6)
--- NOTE | 2017-05-19 19:36 | ED ---
General Adult HPI - General Chief complaint: Recheck/Abnormal Lab/Rx Stated complaint: post hip surgery, possible blood clot Time Seen by Provider: 05/19/17 18:59 Source: patient Mode of arrival: wheelchair Limitations: physical limitation - History of Present Illness Initial comments: 26 years old female had the right hip surgery on April 24 while she was visiting and seeing her physical therapist today they noticed that back of the right leg was red and was hard there are concerned and presented to the ER, she has had been getting an aspirin regularly but she unfortunately discontinue her aspirin after she went home because she didn't know whether she was supposed to take it. Now she denies any chest pain no shortness of breath all no abdominal pain no frequency urgency dysuria she denies any symptoms of TIA or CVA at this point - Related Data Home Medications Medication Instructions Recorded Confirmed Atenolol [Tenormin] 50 mg PO DAILY 12/08/14 05/19/17 Escitalopram Oxalate [Lexapro] 20 mg PO DAILY 12/08/14 05/19/17 Spironolactone-Hctz 25-25Mg 1 tab PO DAILY 12/08/14 05/19/17 [Aldactazide 25-25 MG] Vits A,C,E/Lutein/Minerals 1 tab PO DAILY 12/08/14 05/19/17 [Ocuvite with Lutein Tablet] amLODIPine [Norvasc] 5 mg PO DAILY 12/08/14 05/19/17 Cholecalciferol [Vitamin D3] 5,000 unit PO DAILY 01/19/15 05/19/17 Albuterol Inhaler [Ventolin Hfa 1 - 2 puff INHALATION RT-Q6H PRN 04/12/17 Inhaler] Donepezil HCl [Aricept] 5 mg PO DAILY 04/12/17 05/19/17 Ibuprofen [Motrin] 600 mg PO Q8HR PRN 04/12/17 05/19/17 Ubidecarenone [Co Q-10] 100 mg PO DAILY 04/12/17 05/19/17 Albuterol Nebulized [Ventolin 2.5 mg INHALATION RT-DAILY PRN 04/24/17 05/19/17 Nebulized] buPROPion XL [Wellbutrin XL] 300 mg PO DAILY 04/24/17 05/19/17 Omeprazole 20 mg PO DAILY 05/19/17 05/19/17 Previous Rx's Medication Instructions Recorded Aspirin 325 mg PO BID #60 tab 04/27/17 HYDROcodone/APAP 7.5-325MG [[place] 1 - 2 tab PO Q4-6H PRN #90 tab 04/27/17 7.5-325] Sennosides [Senokot] 1 tab PO BID #60 tablet 04/27/17 Allergies Allergy/AdvReac Type Severity Reaction Status Date / Time celecoxib [From Celebrex] Allergy Rash/Hives Verified 05/19/17 19:17 cephalexin monohydrate Allergy Rash/Hives Verified 05/19/17 19:17 [From Keflex] Penicillins Allergy Rash/Hives Verified 05/19/17 19:17 Sulfa (Sulfonamide Allergy Rash/Hives Verified 05/19/17 19:17 Antibiotics) Wwzapsl-[id number]-[id number] Reductase AdvReac MUSCLE PAIN Verified 05/19/17 19:17 Inhibitor Review of Systems ROS Statement: Those systems with pertinent positive or pertinent negative responses have been documented in the HPI. ROS Other: All systems not noted in ROS Statement are negative. Past Medical History Past Medical History: Cancer, COPD, GERD/Reflux, Hyperlipidemia, Hypertension, Osteoarthritis (OA) Additional Past Medical History / Comment(s): HIATAL HERNIA, HX SKIN CANCER , HEART MURMUR, BACK & HIP PAIN- USES CANE PRN. History of Any Multi-Drug Resistant Organisms: None Reported Past Surgical History: Bariatric Surgery, Bladder Surgery, Heart Catheterization , Joint Replacement, Orthopedic Surgery, Tonsillectomy Additional Past Surgical History / Comment(s): left shoulder surgery, rt knee replacement, bladder suspension, LAP BAND INSERTED AND REMOVED AFTER 1 YEAR., HEART CATH([facility]-2009?) TRH, right hip replacement Past Anesthesia/Blood Transfusion Reactions: No Reported Reaction, Motion Sickness Past Psychological History: Anxiety, Depression Smoking Status: Former smoker Past Alcohol Use History: None Reported, Occasional Past Drug Use History: None Reported - Past Family History Mother Family Medical History: No Reported History General Exam - General Exam Comments Initial Comments: General: The patient is awake and alert, in no distress, and does not appear acutely ill. ACS is 15 Skin: Skin is warm and dry and no rashes or lesions are noted. Tender at the posterior right thigh is mildly erythematous and mildly warmer compared to the Eye: Pupils are equal, round and reactive to light, extra-ocular movements are intact; there is normal conjunctiva bilaterally. Ears, nose, mouth and throat: There are moist mucous membranes and no oral lesions. Neck: The neck is supple, there is no tenderness or JVD. Cardiovascular: There is a regular rate and rhythm. Noticed a systolic murmur 2/6 on the right side of the sternum at 4th intercostal space Respiratory: To auscultation bilateral, no wheezing no rhonchi no distress respiratory jerez noticed Gastrointestinal: Soft, non-distended, non-tender abdomen without masses or organomegaly noted. There is no rebound or guarding present. Bowel sounds are unremarkable. Back: There is no tenderness to palpation in the midline. There is no obvious deformity. Musculoskeletal: Normal ROM, Neurological: CN II-XII intact, Cranial nerves III through XII are intact. There are no obvious motor or sensory deficits. Coordination appears grossly intact. Speech is normal. Psychiatric: Cooperative, appropriate mood & affect, normal judgment. Limitations: physical limitation Course Vital Signs 05/19/17 05/19/17 18:29 19:05 Temperature 99.0 F Pulse Rate 68 64 Respiratory 16 18 Rate Blood Pressure 156/67 183/77 O2 Sat by Pulse 93 L 95 Oximetry Patient's venous Doppler was reviewed, it was discussed with the patient is negative for any deep venous thrombosis, white count is slightly elevated with some left shift C-reactive protein is bit high he could be from her current surgery or consistent with cellulitis the patient will be started on some antibiotics and be discharged home on antibiotics to continue her physical therapy at home and she be advised to take care of her to take her aspirin but today Medical Decision Making - Lab Data Result diagrams: 05/19/17 18:55 Lab Results 05/19/17 05/19/17 Range/Units 18:55 18:55 WBC 11.6 H (3.8-10.6) k/uL RBC 3.55 L (3.80-5.40) m/uL Hgb 10.3 L (11.4-16.0) gm/dL Hct 32.0 L (34.0-46.0) % MCV 90.2 (80.0-100.0) fL MCH 28.9 (25.0-35.0) pg MCHC 32.0 (31.0-37.0) g/dL RDW 13.5 (11.5-15.5) % Plt Count 423 (150-450) k/uL Neutrophils % 67 % Lymphocytes % 17 % Monocytes % 5 % Eosinophils % 8 % Basophils % 1 % Neutrophils # 7.8 H (1.3-7.7) k/uL Lymphocytes # 2.0 (1.0-4.8) k/uL Monocytes # 0.6 (0-1.0) k/uL Eosinophils # 1.0 H (0-0.7) k/uL Basophils # 0.1 (0-0.2) k/uL Hypochromasia Slight C-Reactive Protein 32.0 H (<10.0) mg/L Disposition Clinical Impression: Cellulitis of right leg Disposition: HOME SELF-CARE Condition: Good Referrals: Ngoc Schwarz MD [Primary Care Provider] - 1-2 days
--- NOTE | 2017-05-19 19:47 | US ---
EXAMINATION TYPE: US venous doppler duplex LE RT DATE OF EXAM: 05/19/2017 7:04 PM COMPARISON: US CLINICAL HISTORY: Pain. Pt having right calf pain and redness s/p right hip replacement last month SIDE PERFORMED: Right TECHNIQUE: The lower extremity deep venous system is examined utilizing real time linear array sonog pal with graded compression, doppler sonography and color-flow sonography. VESSELS IMAGED: External Iliac Vein (EIV) Common Femoral Vein Deep Femoral Vein Greater Saphenous Vein * Femoral Vein Popliteal Vein Small Saphenous Vein * Proximal Calf Veins (* superficial vessels) Right Leg: Negative for DVT IMPRESSION: 1. Normal right lower extremity venous ultrasound without evidence of deep venous thrombosis.
[2017-05-19] MEDS ORDERED: LEVOFLOXACIN 500 MG TAB PO STA (20:04)
[2017-05-19] MEDS ORDERED: ASPIRIN 325 MG TAB PO STA (20:05)
[2017-05-19 20:28] VITALS: BP 165/71; PULSE 67
== END 2017-05-19 20:30 | disposition home or self-care (01) ==
LOC: EC 18:19
DX: L03.115 Cellulitis of right lower limb (principal); K21.9 Gastro-esophageal reflux disease without esophagitis; I10 Essential (primary) hypertension; F41.9 Anxiety disorder, unspecified; F32.9 Major depressive disorder, single episode, unspecified; Z85.828 Personal history of other malignant neoplasm of skin; Z95.5 Presence of coronary angioplasty implant and graft; Z96.641 Presence of right artificial hip joint; Z98.890 Other specified postprocedural states; Z87.891 Personal history of nicotine dependence; Z79.899 Other long term (current) drug therapy; Z88.8 Allergy status to other drugs, medicaments and biological substances; Z88.2 Allergy status to sulfonamides; Z88.0 Allergy status to penicillin; Z88.1 Allergy status to other antibiotic agents; Z88.6 Allergy status to analgesic agent
CPT/HCPCS: 36415; 85025; 86140; 99284

== ENCOUNTER → 2017-08-07 | Outpatient (CLI) | payer MEDICARE ==
[2017-08-07 15:10] LABS: Basophils # (A) 0.1 k/uL (0-0.2); Basophils % (A) 1 %; Eosinophils # (A) 0.4 k/uL (0-0.7); Eosinophils % (A) 3 %; HCT 34.4 % (34.0-46.0); HGB 11.3 gm/dL (11.4-16.0); Lymphocytes # (A) 1.9 k/uL (1.0-4.8); Lymphocytes % (A) 15 %; MCH 28.7 pg (25.0-35.0); Mean Platelet Volume 7.3; Monocytes # (A) 0.5 k/uL (0-1.0); Monocytes % (A) 4 %; Neutrophils # (A) 9.2 k/uL (1.3-7.7); Neutrophils % (A) 75 %; Platelet Count 357 k/uL (150-450); RBC 3.95 m/uL (3.80-5.40); RDW 15.6 % (11.5-15.5); WBC 12.2 k/uL (3.8-10.6)
[2017-08-07 16:14] LABS: Erythrocyte Sedimentation Rate 43 mm/hr (0-20)
== END ==
LOC: LABWHC1 14:19
PROVIDERS: ATTEND Orthopaedic Surgery
DX: M25.551 Pain in right hip (principal); M70.61 Trochanteric bursitis, right hip; Z47.1 Aftercare following joint replacement surgery; Z96.641 Presence of right artificial hip joint
CPT/HCPCS: 36415; 85025; 85652; 86140

== ENCOUNTER → 2017-09-07 | Outpatient (CLI) | payer MEDICARE ==
--- NOTE | 2017-09-07 14:43 | NM ---
EXAMINATION TYPE: NM bone 3 phase DATE OF EXAM: 09/07/2017 COMPARISON: Plain film 04/24/2017 HISTORY: Right hip pain Triple phase bone scintigraphy was performed following the injection of 24.9 mCi Tc 99m MDP. Immedia te images and 5 hours post injection images acquired. FINDINGS: Increased blood flow and blood pool imaging noted within the distribution of the right hip, delayed i maging shows increased uptake along the femoral component of patient's right hip arthroplasty. Acetab ulum also show some uptake which is increased on the right as compared to left on delayed images. IMPRESSION: Findings may be postoperative and physiologic, infection, loosening not excluded.
== END | disposition home or self-care (01) ==
LOC: RADNMMAIN 07:39
PROVIDERS: ATTEND Orthopaedic Surgery
DX: Z47.1 Aftercare following joint replacement surgery (principal); M25.551 Pain in right hip; Z96.641 Presence of right artificial hip joint
CPT/HCPCS: 78315; A9503

== ENCOUNTER 2017-11-13 12:05 | Inpatient (IN) | payer MEDICARE ==
[2017-11-13 13:30] LABS: Basophils # (A) 0.1 k/uL (0-0.2); Basophils % (A) 0 %; Eosinophils # (A) 0.1 k/uL (0-0.7); Eosinophils % (A) 1 %; HCT 33.5 % (34.0-46.0); HGB 10.5 gm/dL (11.4-16.0); Hypochromasia Moderate; Lymphocytes # (A) 0.9 k/uL (1.0-4.8); Lymphocytes % (A) 7 %; MCH 26.6 pg (25.0-35.0); MCHC 31.3 g/dL (31.0-37.0); Mean Platelet Volume 6.9; Monocytes # (A) 0.3 k/uL (0-1.0); Monocytes % (A) 2 %; Neutrophils # (A) 11.3 k/uL (1.3-7.7); Neutrophils % (A) 88 %; Platelet Count 344 k/uL (150-450); RBC 3.94 m/uL (3.80-5.40); RDW 15.2 % (11.5-15.5); WBC 12.7 k/uL (3.8-10.6)
--- NOTE | 2017-11-13 13:33 | ED ---
Pediatric SOB HPI - General Chief Complaint: Shortness of Breath Stated Complaint: Sob/palpitations Time Seen by Provider: 11/13/17 13:06 Source: patient, family, RN notes reviewed, old records reviewed Mode of arrival: wheelchair Limitations: no limitations - History of Present Illness Initial Comments: 77-year-old female presenting for evaluation of worsening dyspnea over the past one week. Patient was evaluated by her primary care physician this morning, felt to have new onset heart failure. Patient does describe lateral lower extremity swelling, she's had worsening exertional dyspnea as well as orthopnea and paroxysmal nocturnal dyspnea for the past one week. She denies any significant anterior or substernal chest pain. She does have some mild left anterior chest pain with deep inspiration. No fever or chills. No cough. No nausea vomiting or diarrhea. - Related Data Home Medications Medication Instructions Recorded Confirmed Atenolol [Tenormin] 50 mg PO DAILY 12/08/14 11/13/17 Escitalopram Oxalate [Lexapro] 20 mg PO DAILY 12/08/14 11/13/17 Spironolactone-Hctz 25-25Mg 1 tab PO DAILY 12/08/14 11/13/17 [Aldactazide 25-25 MG] amLODIPine [Norvasc] 5 mg PO DAILY 12/08/14 11/13/17 Donepezil HCl [Aricept] 5 mg PO DAILY 04/12/17 11/13/17 Albuterol Nebulized [Ventolin 2.5 mg INHALATION RT-QID PRN 04/24/17 11/13/17 Nebulized] buPROPion XL [Wellbutrin XL] 300 mg PO DAILY 04/24/17 11/13/17 ALPRAZolam [Xanax] 0.25 mg PO BID PRN 11/13/17 11/13/17 Clindamycin HCl 600 mg PO ONCE PRN 11/13/17 11/13/17 Gabapentin [Neurontin] 300 mg PO TID 11/13/17 11/13/17 HYDROcodone/APAP 10-325MG [[place] 1 tab PO Q4HR PRN 11/13/17 11/13/17 10-325] Loratadine [Claritin] 10 mg PO DAILY 11/13/17 11/13/17 Ranitidine HCl [Zantac] 300 mg PO BID 11/13/17 11/13/17 predniSONE See Taper PO DAILY 11/13/17 11/13/17 Allergies Allergy/AdvReac Type Severity Reaction Status Date / Time celecoxib [From Celebrex] Allergy Rash/Hives Verified 11/13/17 13:35 cephalexin monohydrate Allergy Rash/Hives Verified 11/13/17 13:35 [From Keflex] Penicillins Allergy Rash/Hives Verified 11/13/17 13:35 Sulfa (Sulfonamide Allergy Rash/Hives Verified 11/13/17 13:35 Antibiotics) Hgibwuz-Cms-Pta Reductase AdvReac MUSCLE PAIN Verified 11/13/17 13:35 Inhibitor Review of Systems ROS Statement: Those systems with pertinent positive or pertinent negative responses have been documented in the HPI. ROS Other: All systems not noted in ROS Statement are negative. Past Medical History Past Medical History: Cancer, COPD, GERD/Reflux, Hyperlipidemia, Hypertension, Osteoarthritis (OA) Additional Past Medical History / Comment(s): HIATAL HERNIA, HX SKIN CANCER , HEART MURMUR, BACK & HIP PAIN- USES CANE PRN. History of Any Multi-Drug Resistant Organisms: None Reported Past Surgical History: Bariatric Surgery, Bladder Surgery, Heart Catheterization , Joint Replacement, Orthopedic Surgery, Tonsillectomy Additional Past Surgical History / Comment(s): left shoulder surgery, rt knee replacement, bladder suspension, LAP BAND INSERTED AND REMOVED AFTER 1 YEAR., HEART CATH([facility]-2009?) TRH, right hip replacement Past Anesthesia/Blood Transfusion Reactions: No Reported Reaction, Motion Sickness Past Psychological History: Anxiety, Depression Smoking Status: Former smoker Past Alcohol Use History: None Reported, Occasional Past Drug Use History: None Reported - Past Family History Mother Family Medical History: No Reported History General Exam Limitations: no limitations General appearance: alert, in no apparent distress Head exam: Present: atraumatic, normocephalic Eye exam: Present: normal appearance, PERRL ENT exam: Present: normal exam Neck exam: Present: normal inspection. Absent: tenderness, meningismus Respiratory exam: Present: rales, decreased breath sounds. Absent: respiratory distress Cardiovascular Exam: Present: regular rate, normal rhythm GI/Abdominal exam: Present: soft. Absent: distended, tenderness Extremities exam: Present: normal inspection, normal capillary refill. Absent: pedal edema Back exam: Present: normal inspection, full ROM Neurological exam: Present: alert, oriented X3, CN II-XII intact. Absent: motor sensory deficit Psychiatric exam: Present: normal affect, normal mood Skin exam: Present: warm, dry, intact. Absent: cyanosis, diaphoretic Course Vital Signs 11/13/17 11/13/17 11/13/17 12:58 13:23 13:45 Temperature 99.0 F Pulse Rate 69 66 Respiratory 20 20 24 Rate Blood Pressure 145/80 172/74 O2 Sat by Pulse 88 L 97 Oximetry 11/13/17 11/13/17 11/13/17 13:50 14:05 14:36 Temperature Pulse Rate 66 110 H 60 Respiratory 20 Rate Blood Pressure 158/70 O2 Sat by Pulse 97 Oximetry - Reevaluation(s) Reevaluation #1: 11/13/17 15:34 On reevaluation after a trial of BiPAP and initial dose of Lasix, patient is much more comfortable, improved dyspnea. Reevaluation #2: 11/13/17 1241 EKG: Normal sinus rhythm, rate of 71, CA interval 142, QRS duration 80, QTc 460 , no ST segment elevation no T-wave inversion. Medical Decision Making - Medical Decision Making 77-year-old female presenting with symptoms suggestive of congestive heart failure. Exam reveals bilateral Rales and pitting edema in the lower extremities. Chest x-ray reveals pulmonary edema consistent with CHF along with cardiomegaly. White blood cell count mildly elevated, patient is on steroids chronically. Will observe for signs of infection. Hemoglobin 10.5, troponin is mildly elevated 0.048, BNP 4200. Troponin will be trended to ensure that this level is not increasing. Patient is given aspirin and Lasix in the emergency department. She was trialed on BiPAP and had significant improvement after short use of BiPAP with IV Lasix. She will be admitted for echo and cardiology consultation. - Lab Data Result diagrams: 11/13/17 13:15 11/13/17 13:15 Lab Results 11/13/17 11/13/17 11/13/17 Range/Units 13:15 13:15 13:15 WBC 12.7 H (3.8-10.6) k/uL RBC 3.94 (3.80-5.40) m/uL Hgb 10.5 L (11.4-16.0) gm/dL Hct 33.5 L (34.0-46.0) % MCV 85.0 (80.0-100.0) fL MCH 26.6 (25.0-35.0) pg MCHC 31.3 (31.0-37.0) g/dL RDW 15.2 (11.5-15.5) % Plt Count 344 (150-450) k/uL Neutrophils % 88 % Lymphocytes % 7 % Monocytes % 2 % Eosinophils % 1 % Basophils % 0 % Neutrophils # 11.3 H (1.3-7.7) k/uL Lymphocytes # 0.9 L (1.0-4.8) k/uL Monocytes # 0.3 (0-1.0) k/uL Eosinophils # 0.1 (0-0.7) k/uL Basophils # 0.1 (0-0.2) k/uL Hypochromasia Moderate PT (9.0-12.0) sec INR (<1.2) APTT (22.0-30.0) sec Sodium 139 (137-145) mmol/L Potassium 4.6 (3.5-5.1) mmol/L Chloride 103 (98-107) mmol/L Carbon Dioxide 28 (22-30) mmol/L Anion Gap 8 mmol/L BUN 18 H (7-17) mg/dL Creatinine 0.74 (0.52-1.04) mg/dL Est GFR (CKD-EPI)AfAm >90 (>60 ml/min/1.73 sqM) Est GFR (CKD-EPI)NonAf 79 (>60 ml/min/1.73 sqM) Glucose 109 H (74-99) mg/dL Calcium 9.6 (8.4-10.2) mg/dL Magnesium 1.9 (1.6-2.3) mg/dL Total Bilirubin 0.7 (0.2-1.3) mg/dL AST 28 (14-36) U/L ALT 43 (9-52) U/L Alkaline Phosphatase 83 (38-126) U/L Total Creatine Kinase 30 (30-135) U/L CK-MB (CK-2) 1.3 (0.0-2.4) ng/mL CK-MB (CK-2) Rel Index 4.3 Troponin I 0.048 H* (0.000-0.034) ng/mL NT-Pro-B Natriuret Pep pg/mL Total Protein 6.5 (6.3-8.2) g/dL Albumin 3.9 (3.5-5.0) g/dL 11/13/17 11/13/17 Range/Units 13:15 13:15 WBC (3.8-10.6) k/uL RBC (3.80-5.40) m/uL Hgb (11.4-16.0) gm/dL Hct (34.0-46.0) % MCV (80.0-100.0) fL MCH (25.0-35.0) pg MCHC (31.0-37.0) g/dL RDW (11.5-15.5) % Plt Count (150-450) k/uL Neutrophils % % Lymphocytes % % Monocytes % % Eosinophils % % Basophils % % Neutrophils # (1.3-7.7) k/uL Lymphocytes # (1.0-4.8) k/uL Monocytes # (0-1.0) k/uL Eosinophils # (0-0.7) k/uL Basophils # (0-0.2) k/uL Hypochromasia PT 10.2 (9.0-12.0) sec INR 1.0 (<1.2) APTT 25.1 (22.0-30.0) sec Sodium (137-145) mmol/L Potassium (3.5-5.1) mmol/L Chloride (98-107) mmol/L Carbon Dioxide (22-30) mmol/L Anion Gap mmol/L BUN (7-17) mg/dL Creatinine (0.52-1.04) mg/dL Est GFR (CKD-EPI)AfAm (>60 ml/min/1.73 sqM) Est GFR (CKD-EPI)NonAf (>60 ml/min/1.73 sqM) Glucose (74-99) mg/dL Calcium (8.4-10.2) mg/dL Magnesium (1.6-2.3) mg/dL Total Bilirubin (0.2-1.3) mg/dL AST (14-36) U/L ALT (9-52) U/L Alkaline Phosphatase (38-126) U/L Total Creatine Kinase (30-135) U/L CK-MB (CK-2) (0.0-2.4) ng/mL CK-MB (CK-2) Rel Index Troponin I (0.000-0.034) ng/mL NT-Pro-B Natriuret Pep 4220 pg/mL Total Protein (6.3-8.2) g/dL Albumin (3.5-5.0) g/dL Disposition Clinical Impression: New onset of congestive heart failure Disposition: ADMITTED IP TO THIS HOSP Condition: Stable Is patient prescribed a controlled substance at d/c from ED?: No Referrals: Ngoc Schwarz MD [Primary Care Provider] - 1-2 days Decision to Admit Reason: Admit from EC Decision Date: 11/13/17 Decision Time: 15:15
[2017-11-13 13:38] LABS: ALT 43 U/L (9-52); AST 28 U/L (14-36); Albumin 3.9 g/dL (3.5-5.0); Alkaline Phosphatase 83 U/L (38-126); Anion Gap 8 mmol/L; Blood Urea Nitrogen 18 mg/dL (7-17); Calcium 9.6 mg/dL (8.4-10.2); Carbon Dioxide 28 mmol/L (22-30); Chloride 103 mmol/L (98-107); Glucose 109 mg/dL (74-99); Magnesium 1.9 mg/dL (1.6-2.3); Potassium 4.6 mmol/L (3.5-5.1); Sodium 139 mmol/L (137-145); Total Bilirubin 0.7 mg/dL (0.2-1.3); Total Protein 6.5 g/dL (6.3-8.2)
[2017-11-13] MEDS ORDERED: IPRATROPIUM-ALBUTEROL 3 ML NEB INHALATION STA (13:42)
[2017-11-13] MEDS ORDERED: FUROSEMIDE 10 MG/ML 4 ML VIAL IV STA (13:42)
--- NOTE | 2017-11-13 13:44 | XR ---
EXAMINATION TYPE: XR chest 2V DATE OF EXAM: 11/13/2017 COMPARISON: 04/25/2017 HISTORY: 77-year-old female difficulty breathing and shortness of breath TECHNIQUE: Frontal and lateral views FINDINGS: Heart is border line to mildly enlarged. Diffuse interstitial and peribronchial opacities with small pleural effusions with adjacent bibasilar opacities. IMPRESSION: 1. Borderline to mild cardiomegaly with interstitial changes. Correlate for CHF and pulmonary vascula r congestion. 2. Small pleural effusions with adjacent atelectasis and or consolidation.
[2017-11-13 14:06] LABS: Creatine Kinase MB 1.3 ng/mL (0.0-2.4)
[2017-11-13 14:09] LABS: Troponin I 0.048 ng/mL (0.000-0.034)
[2017-11-13 14:34] LABS: Partial Thromboplastin Time 25.1 sec (22.0-30.0); Prothrombin Time 10.2 sec (9.0-12.0)
[2017-11-13] MEDS ORDERED: ASPIRIN 325 MG TAB PO STA (14:50)
[2017-11-13] MEDS ORDERED: NALOXONE 0.4 MG/ML 1 ML VIAL IV PRN (15:29)
[2017-11-13] MEDS ORDERED: ACETAMINOPHEN TAB 325 MG TAB PO PRN (15:29)
[2017-11-13] MEDS: ALBUTEROL NEBULIZED 2.5 MG/3 ML INHALATION PRN (18:59)
[2017-11-13 20:11] LABS: Creatine Kinase MB 1.1 ng/mL (0.0-2.4)
[2017-11-13] MEDS: FUROSEMIDE 10 MG/ML 4 ML VIAL IV SCH (20:13)
[2017-11-13 20:17] LABS: Troponin I 0.036 ng/mL (0.000-0.034)
--- NOTE | 2017-11-13 20:23 | P.HPIM ---
History of Present Illness H&P Date: 11/13/17 Chief Complaint: Progressive shortness of breath for last the 5-7 days 77-year-old female who was seen eval reexamined in the selective care patient has been having shortness of breath which has been progressive for the last 7- 10 days in addition patient was having some increased swelling of the lower extremity as well with those problem she came into the emergency department was seen eval reexamined subsequently admitted into the hospital, patient does has a history of chronic cough which however she feels that has stable and improved she also has a history of sleep disorder breathing and sleep apnea however never formally diagnosed with sleep studies, patient and daughter however expresses interest in undergoing sleep study as outpatient Patient was evaluated by her primary care physician this morning, felt to have new onset heart failure. Patient does describe lateral lower extremity swelling , she's had worsening exertional dyspnea as well as orthopnea and paroxysmal nocturnal dyspnea for the past one week. She denies any significant anterior or substernal chest pain. She does have some mild left anterior chest pain with deep inspiration. No fever or chills. No cough. No nausea vomiting or diarrhea. In the emergency department patient did receive IV furosemide along with BiPAP support I evaluated her on the floor and I was able to get her off of the BiPAP and placed on nasal cannula she was comfortable she admits BiPAP machine did help her significantly Review of Systems All systems: negative Past Medical History Past Medical History: Cancer, COPD, GERD/Reflux, Hyperlipidemia, Hypertension, Osteoarthritis (OA) Additional Past Medical History / Comment(s): HIATAL HERNIA, HX SKIN CANCER , HEART MURMUR, BACK & HIP PAIN- USES CANE PRN. History of Any Multi-Drug Resistant Organisms: None Reported Past Surgical History: Bariatric Surgery, Bladder Surgery, Heart Catheterization , Joint Replacement, Orthopedic Surgery, Tonsillectomy Additional Past Surgical History / Comment(s): left shoulder surgery, rt knee replacement, bladder suspension, LAP BAND INSERTED AND REMOVED AFTER 1 YEAR., HEART CATH([facility]-2009?) TRH, right hip replacement Past Anesthesia/Blood Transfusion Reactions: No Reported Reaction, Motion Sickness Past Psychological History: Anxiety, Depression Smoking Status: Former smoker Past Alcohol Use History: None Reported, Occasional Past Drug Use History: None Reported - Past Family History Mother Family Medical History: No Reported History Medications and Allergies Home Medications Medication Instructions Recorded Confirmed Type Atenolol [Tenormin] 50 mg PO DAILY 12/08/14 11/13/17 History Escitalopram Oxalate [Lexapro] 20 mg PO DAILY 12/08/14 11/13/17 History Spironolactone-Hctz 25-25Mg 1 tab PO DAILY 12/08/14 11/13/17 History [Aldactazide 25-25 MG] amLODIPine [Norvasc] 5 mg PO DAILY 12/08/14 11/13/17 History Donepezil HCl [Aricept] 5 mg PO DAILY 04/12/17 11/13/17 History Albuterol Nebulized [Ventolin 2.5 mg INHALATION RT-QID PRN 04/24/17 11/13/17 History Nebulized] buPROPion XL [Wellbutrin XL] 300 mg PO DAILY 04/24/17 11/13/17 History ALPRAZolam [Xanax] 0.25 mg PO BID PRN 11/13/17 11/13/17 History Clindamycin HCl 600 mg PO ONCE PRN 11/13/17 11/13/17 History Gabapentin [Neurontin] 300 mg PO TID 11/13/17 11/13/17 History HYDROcodone/APAP 10-325MG [[place] 1 tab PO Q4HR PRN 11/13/17 11/13/17 History 10-325] Loratadine [Claritin] 10 mg PO DAILY 11/13/17 11/13/17 History Ranitidine HCl [Zantac] 300 mg PO BID 11/13/17 11/13/17 History predniSONE See Taper PO DAILY 11/13/17 11/13/17 History Allergies Allergy/AdvReac Type Severity Reaction Status Date / Time celecoxib [From Celebrex] Allergy Rash/Hives Verified 11/13/17 13:35 cephalexin monohydrate Allergy Rash/Hives Verified 11/13/17 13:35 [From Keflex] Penicillins Allergy Rash/Hives Verified 11/13/17 13:35 Sulfa (Sulfonamide Allergy Rash/Hives Verified 11/13/17 13:35 Antibiotics) Uboxtkg-Gxu-Bsa Reductase AdvReac MUSCLE PAIN Verified 11/13/17 13:35 Inhibitor Physical Exam Vitals: Vital Signs Temp Pulse Resp BP Pulse Ox 11/13/17 19:11 72 11/13/17 19:02 68 11/13/17 18:19 97.0 F L 67 18 148/67 97 11/13/17 15:45 87 18 181/83 98 11/13/17 14:36 60 20 158/70 97 11/13/17 14:05 110 H 11/13/17 13:50 66 11/13/17 13:45 66 24 172/74 97 11/13/17 13:23 20 11/13/17 12:58 99.0 F 69 20 145/80 88 L Intake and Output 11/13/17 11/13/17 11/13/17 06:59 14:59 22:59 Output Total 1400 Balance -1400 Output: Urine 1400 Other: # Voids 2 Weight 95.254 kg - Constitutional General appearance: cooperative, mild distress, morbidly obese - EENT Eyes: anicteric sclerae, EOMI, PERRLA, normal appearance ENT: hearing grossly normal, normal oropharynx Ears: bilateral: normal - Neck Neck: normal ROM Carotids: bilateral: upstroke normal, bruit absent Thyroid: bilateral: normal size - Respiratory Respiratory: bilateral: rales (Predominantly at the bases), negative: CTA, diminished, dullness, rhonchi, wheezing, prolonged expiration, prolonged inspiration - Cardiovascular Heart sounds: normal: S1, S2 (2 x 6 early systolic murmur is present and radiating towards the right carotid) Abnormal Heart Sounds: systolic murmur ankle Peripheral Edema: bilateral: Trace, 1+ - Gastrointestinal General gastrointestinal: distended, normal bowel sounds, soft - Integumentary Integumentary: normal, normal turgor - Neurologic Neurologic: CNII-XII intact - Musculoskeletal Musculoskeletal: gait normal, generalized weakness, strength equal bilaterally - Psychiatric Psychiatric: A&O x's 3, appropriate affect, intact judgment & insight Results CBC & Chem 7: 11/13/17 13:15 11/13/17 13:15 Labs: Abnormal Lab Results - Last 24 Hours (Table) 11/13/17 11/13/17 11/13/17 Range/Units 13:15 13:15 13:15 WBC 12.7 H (3.8-10.6) k/uL Hgb 10.5 L (11.4-16.0) gm/dL Hct 33.5 L (34.0-46.0) % Neutrophils # 11.3 H (1.3-7.7) k/uL Lymphocytes # 0.9 L (1.0-4.8) k/uL BUN 18 H (7-17) mg/dL Glucose 109 H (74-99) mg/dL Total Creatine Kinase (30-135) U/L Troponin I 0.048 H* (0.000-0.034) ng/mL 11/13/17 Range/Units 19:03 WBC (3.8-10.6) k/uL Hgb (11.4-16.0) gm/dL Hct (34.0-46.0) % Neutrophils # (1.3-7.7) k/uL Lymphocytes # (1.0-4.8) k/uL BUN (7-17) mg/dL Glucose (74-99) mg/dL Total Creatine Kinase 27 L (30-135) U/L Troponin I (0.000-0.034) ng/mL Chest x-ray: report reviewed, image reviewed (Cardiomegaly interstitial edema small pleural effusion bilaterally the bases consistent with acute exacerbation of CHF) Assessment and Plan Assessment: Acute exacerbation of CHF likely acute systolic heart failure, elevated BNP Elevated troponin related to hypertensive heart disease or Non-STEMI with elevated troponin Acute hypoxic respirator failure related to pulmonary edema History of hypertension and hypertensive cardiovascular disease and dyslipidemia Chronic peripheral neuropathy SLEEP disorder breathing and sleep apnea Severe morbid obesity Plan: Gentle diuresis Bronchodilator therapy Check cardiac enzymes Consult cardiology Echocardiogram Repeat labs tomorrow Further recommendations pending plan of care as per clinical response of the patient Time with Patient: Greater than 30
[2017-11-14] MEDS: HYDROcodone/APAP 10-325MG 1 EACH TAB PO PRN ×3 (01:39→20:16)
[2017-11-14 01:58] LABS: Creatine Kinase MB 1.1 ng/mL (0.0-2.4)
[2017-11-14 02:02] LABS: Troponin I 0.042 ng/mL (0.000-0.034)
[2017-11-14] MEDS: PANTOPRAZOLE 40 MG TABLET PO SCH ×2 (06:18→16:32)
[2017-11-14 06:29] LABS: Basophils # (A) 0.1 k/uL (0-0.2); Basophils % (A) 1 %; Eosinophils # (A) 0.4 k/uL (0-0.7); Eosinophils % (A) 3 %; HCT 32.4 % (34.0-46.0); HGB 10.2 gm/dL (11.4-16.0); Hypochromasia Moderate; Lymphocytes # (A) 2.5 k/uL (1.0-4.8); Lymphocytes % (A) 20 %; MCH 26.3 pg (25.0-35.0); MCHC 31.6 g/dL (31.0-37.0); MCV 83.3 fL (80.0-100.0); Mean Platelet Volume 6.8; Monocytes # (A) 0.5 k/uL (0-1.0); Monocytes % (A) 4 %; Neutrophils # (A) 9.1 k/uL (1.3-7.7); Neutrophils % (A) 71 %; Platelet Count 323 k/uL (150-450); RBC 3.89 m/uL (3.80-5.40); RDW 15.1 % (11.5-15.5); WBC 12.8 k/uL (3.8-10.6)
[2017-11-14 06:35] LABS: Albumin 3.7 g/dL (3.5-5.0); Calcium 9.8 mg/dL (8.4-10.2); Potassium 3.7 mmol/L (3.5-5.1); Total Bilirubin 0.8 mg/dL (0.2-1.3); Total Protein 6.4 g/dL (6.3-8.2)
[2017-11-14] MEDS: FUROSEMIDE 10 MG/ML 4 ML VIAL IV SCH ×2 (08:12→21:00)
--- NOTE | 2017-11-14 08:37 | P.CRDCN ---
History of Present Illness Consult date: 11/14/17 Requesting physician: Alon Corrales Consult reason: congestive heart failure Chief complaint: Shortness of breath History of present illness: This is a pleasant 77-year-old female who has a known history of hypertension, hyperlipidemia, GERD, quit smoking several years ago, who presents to the hospital with symptoms of progressively worsening shortness of breath with associated bilateral peripheral edema, positive PND and orthopnea. According to the patient, symptoms have been going on for over a week however they became severe on the weekend. He went to see her primary care doctor, Dr. Schwarz, who advised that the patient come to the hospital for further evaluation. Chest x-ray on admission here revealed a borderline to mild cardiomegaly with interstitial changes. CHF and pulmonary vascular congestion. Small pleural effusions with atelectasis and/or consolidation. EKG on arrival here showed a normal sinus rhythm with no acute changes. White blood cell count 12.8, hemoglobin 10.2, platelet count 323, sodium 138, potassium 3.7 , BUN 22, creatinine 0.9, magnesium 1.9, troponins 0.048 weeks, 0.036, 0.042. BNP level 4220. Blood pressure on arrival here 145/80, 88% O2 sat on room air, temperature 99.1. Rate in the 60s to 70s. Blood pressure this morning 146/60, heart rate in the 70s, 96% on 4 L of oxygen this morning. Patient was initiated on IV Lasix in the emergency room, she has diuresed well since her admission here, her weight this morning is down 2 kg from admission. At the time of my examination, patient states she did not sleep well last night and generally not feeling that well this morning. She does state that her breathing is improved however not back to her normal. Past Medical History Past Medical History: Cancer, COPD, GERD/Reflux, Hyperlipidemia, Hypertension, Osteoarthritis (OA) Additional Past Medical History / Comment(s): HIATAL HERNIA, HX SKIN CANCER , HEART MURMUR, BACK & HIP PAIN- USES CANE PRN. History of Any Multi-Drug Resistant Organisms: None Reported Past Surgical History: Bariatric Surgery, Bladder Surgery, Heart Catheterization , Joint Replacement, Orthopedic Surgery, Tonsillectomy Additional Past Surgical History / Comment(s): left shoulder surgery, rt knee replacement, bladder suspension, LAP BAND INSERTED AND REMOVED AFTER 1 YEAR., HEART CATH([facility]-2009?) TRH, right hip replacement Past Anesthesia/Blood Transfusion Reactions: No Reported Reaction, Motion Sickness Past Psychological History: Anxiety, Depression Smoking Status: Former smoker Past Alcohol Use History: None Reported, Occasional Past Drug Use History: None Reported - Past Family History Father Family Medical History: Congestive Heart Failure (CHF), CVA/TIA Additional Family Medical History / Comment(s): CABG Mother Family Medical History: No Reported History Medications and Allergies Home Medications Medication Instructions Recorded Confirmed Type Atenolol [Tenormin] 50 mg PO DAILY 12/08/14 11/13/17 History Escitalopram Oxalate [Lexapro] 20 mg PO DAILY 12/08/14 11/13/17 History Spironolactone-Hctz 25-25Mg 1 tab PO DAILY 12/08/14 11/13/17 History [Aldactazide 25-25 MG] amLODIPine [Norvasc] 5 mg PO DAILY 12/08/14 11/13/17 History Donepezil HCl [Aricept] 5 mg PO DAILY 04/12/17 11/13/17 History Albuterol Nebulized [Ventolin 2.5 mg INHALATION RT-QID PRN 04/24/17 11/13/17 History Nebulized] buPROPion XL [Wellbutrin XL] 300 mg PO DAILY 04/24/17 11/13/17 History ALPRAZolam [Xanax] 0.25 mg PO BID PRN 11/13/17 11/13/17 History Clindamycin HCl 600 mg PO ONCE PRN 11/13/17 11/13/17 History Gabapentin [Neurontin] 300 mg PO TID 11/13/17 11/13/17 History HYDROcodone/APAP 10-325MG [[place] 1 tab PO Q4HR PRN 11/13/17 11/13/17 History 10-325] Loratadine [Claritin] 10 mg PO DAILY 11/13/17 11/13/17 History Ranitidine HCl [Zantac] 300 mg PO BID 11/13/17 11/13/17 History predniSONE See Taper PO DAILY 11/13/17 11/13/17 History Allergies Allergy/AdvReac Type Severity Reaction Status Date / Time celecoxib [From Celebrex] Allergy Rash/Hives Verified 11/13/17 21:53 cephalexin monohydrate Allergy Rash/Hives Verified 11/13/17 21:53 [From Keflex] Penicillins Allergy Rash/Hives Verified 11/13/17 21:53 Sulfa (Sulfonamide Allergy Rash/Hives Verified 11/13/17 21:53 Antibiotics) Zfjbeqn-Yep-Hga Reductase AdvReac MUSCLE PAIN Verified 11/13/17 21:53 Inhibitor Physical Exam Vitals: Vital Signs Temp Pulse Pulse Resp BP BP Pulse Ox 11/14/17 08:00 98.8 F 71 16 146/66 96 11/14/17 04:00 68 17 163/70 98 11/14/17 00:00 98.0 F 64 17 188/76 97 11/13/17 19:11 72 11/13/17 19:02 68 11/13/17 18:19 97.0 F L 67 18 148/67 97 11/13/17 15:45 87 18 181/83 98 11/13/17 14:36 60 20 158/70 97 11/13/17 14:05 110 H 11/13/17 13:50 66 11/13/17 13:45 66 24 172/74 97 11/13/17 13:23 20 11/13/17 12:58 99.0 F 69 20 145/80 88 L Intake and Output 11/13/17 11/14/17 11/14/17 22:59 06:59 14:59 Intake Total 100 Output Total 1400 1200 Balance -1400 -1200 100 Intake: Oral 100 Output: Urine 1400 1200 Other: Voiding Method Toilet # Voids 2 2 Weight 93 kg PHYSICAL EXAMINATION: GENERAL: 77-year-old female in no acute distress at the time of my examination HEENT: Head is atraumatic, normocephalic. Pupils equal, round. Sclera anicteric. Conjunctiva are clear. Mucous membranes of the mouth are moist. Neck is supple. There is no elevated jugular venous pressure. No carotid bruit is heard. HEART EXAINATION: [Heart S1, S2 systolic murmur heard.] CHEST EXAMINATION Lungs reveal diminished air entry to bilateral bases] ABDOMEN: [ Soft, nontender. Bowel sounds are heard. No organomegaly noted]. EXTREMITIES:[ 2+ peripheral pulses with no evidence of peripheral edema and no calf tenderness noted]. NEUROLOGIC [patient is awake, alert and oriented X3.] . Results 11/14/17 05:47 08/07/18 05:47 Cardiac Enzymes 11/13/17 11/13/17 11/13/17 Range/Units 13:15 13:15 19:03 AST 28 (14-36) U/L CK-MB (CK-2) 1.3 1.1 (0.0-2.4) ng/mL Troponin I 0.048 H* 0.036 H* (0.000-0.034) ng/mL 11/14/17 11/14/17 Range/Units 01:09 05:47 AST 24 (14-36) U/L CK-MB (CK-2) 1.1 (0.0-2.4) ng/mL Troponin I 0.042 H* (0.000-0.034) ng/mL Coagulation 11/13/17 Range/Units 13:15 PT 10.2 (9.0-12.0) sec APTT 25.1 (22.0-30.0) sec CBC 11/13/17 11/14/17 Range/Units 13:15 05:47 WBC 12.7 H 12.8 H (3.8-10.6) k/uL RBC 3.94 3.89 (3.80-5.40) m/uL Hgb 10.5 L 10.2 L (11.4-16.0) gm/dL Hct 33.5 L 32.4 L (34.0-46.0) % Plt Count 344 323 (150-450) k/uL Comprehensive Metabolic Panel 11/13/17 11/14/17 Range/Units 13:15 05:47 Sodium 139 138 (137-145) mmol/L Potassium 4.6 3.7 (3.5-5.1) mmol/L Chloride 103 96 L (98-107) mmol/L Carbon Dioxide 28 37 H (22-30) mmol/L BUN 18 H 22 H (7-17) mg/dL Creatinine 0.74 0.97 (0.52-1.04) mg/dL Glucose 109 H 93 (74-99) mg/dL Calcium 9.6 9.8 (8.4-10.2) mg/dL AST 28 24 (14-36) U/L ALT 43 41 (9-52) U/L Alkaline Phosphatase 83 73 (38-126) U/L Total Protein 6.5 6.4 (6.3-8.2) g/dL Albumin 3.9 3.7 (3.5-5.0) g/dL Current Medications Generic Name Dose Route Start Last Admin Trade Name Freq PRN Reason Stop Dose Admin Acetaminophen 650 mg 11/13/17 15:29 Tylenol Tab PO Q6HR PRN Mild Pain or Fever > 100.5 Hydrocodone Bitart/Acetaminophen 1 each 11/13/17 15:31 11/14/17 08:12 [place] 10 PO 1 each Q4HR PRN Administration Pain Albuterol Sulfate 2.5 mg 11/13/17 15:31 11/13/17 18:59 Ventolin Nebulized INHALATION 2.5 mg RT-QID PRN Administration Shortness Of Breath Amlodipine Besylate 5 mg 11/14/17 09:00 Norvasc PO DAILY EDITH Atenolol 50 mg 11/14/17 09:00 Tenormin PO DAILY EDITH Furosemide 40 mg 11/13/17 21:00 11/14/17 08:12 Lasix IV 40 mg Q12HR EDITH Administration HCTZ/Spironolactone 1 each 11/14/17 09:00 Aldactazide 25-25mg PO DAILY EDITH Naloxone HCl 0.2 mg 11/13/17 15:29 Narcan IV Q2M PRN Opioid Reversal Pantoprazole Sodium 40 mg 11/14/17 07:30 11/14/17 06:18 Protonix PO 40 mg AC-BID EDITH Administration Intake and Output 11/13/17 11/14/17 11/14/17 22:59 06:59 14:59 Intake Total 100 Output Total 1400 1200 Balance -1400 -1200 100 Intake: Oral 100 Output: Urine 1400 1200 Other: Voiding Method Toilet # Voids 2 2 Weight 93 kg 11/14/17 05:47 11/14/17 05:47 EKG Interpretations (text) EKG shows a normal sinus rhythm with no acute changes. Assessment and Plan Plan: Assessment and plan #1 congestive heart failure, LV function unknown #2 hypertension #3 hyperlipidemia #4 GERD #5 anemia #6 prior history of smoking #7 abnormal troponin, likely secondary to supply and demand mismatch. #8 systolic murmur heard, rule out severe aortic stenosis. Plan Will obtain an echocardiogram with Doppler study, continue IV Lasix. Continue beta mike and Aldactone. Discontinue Norvasc. Start the patient on angiotensin mike. Monitor intake and output, daily weights, daily lytes BUN and creatinine closely. Further recommendations to follow. DNP note has been reviewed, I agree with a documented findings and plan of care. Patient was seen and examined.
[2017-11-14] MEDS ORDERED: amLODIPine 5 MG TAB PO SCH (09:00)
[2017-11-14] MEDS: ALBUTEROL NEBULIZED 2.5 MG/3 ML INHALATION PRN ×3 (09:26→16:54)
[2017-11-14 11:32] VITALS: BMI 37.5
--- NOTE | 2017-11-14 12:20 | P.PN ---
Subjective Progress Note Date: 11/14/17 77-year-old female who was seen eval reexamined in the selective care patient has been having shortness of breath which has been progressive for the last 7- 10 days in addition patient was having some increased swelling of the lower extremity as well with those problem she came into the emergency department was seen eval reexamined subsequently admitted into the hospital, patient does has a history of chronic cough which however she feels that has stable and improved she also has a history of sleep disorder breathing and sleep apnea however never formally diagnosed with sleep studies, patient and daughter however expresses interest in undergoing sleep study as outpatient Patient was evaluated by her primary care physician this morning, felt to have new onset heart failure. Patient does describe lateral lower extremity swelling , she's had worsening exertional dyspnea as well as orthopnea and paroxysmal nocturnal dyspnea for the past one week. She denies any significant anterior or substernal chest pain. She does have some mild left anterior chest pain with deep inspiration. No fever or chills. No cough. No nausea vomiting or diarrhea. In the emergency department patient did receive IV furosemide along with BiPAP support I evaluated her on the floor and I was able to get her off of the BiPAP and placed on nasal cannula she was comfortable she admits BiPAP machine did help her significantly 11/14/2017 patient is currently sitting up in bed stating slightly improved from yesterday. Patient remains on 4 L oxygen which she currently does not wear at home. 2-D echo has been taken. Patient remains on 40mg Lasix IV every 12 hours. Patient denies chest pain or shortness of breath. Denies nausea vomiting or diarrhea Objective - Vital Signs Vital signs: Vital Signs Temp 98.8 F 11/14/17 08:00 Pulse 72 11/14/17 09:39 Resp 16 11/14/17 11:38 BP 146/66 11/14/17 08:00 Pulse Ox 96 11/14/17 08:00 Intake & Output 11/13/17 11/14/17 11/14/17 18:59 06:59 18:59 Intake Total 100 Output Total 1400 1200 Balance -1400 -1200 100 Weight 95.254 kg 93 kg 93 kg Intake: Oral 100 Output: Urine 1400 1200 Other: Voiding Method Toilet Toilet # Voids 2 2 - Exam Head normocephalic Neck supple Lungs bilateral rales at bases Heart regular rate and rhythm S1-S2, no rub or gallop Abdomen is soft nontender nondistended positive bowel sounds no hepatosplenomegaly Extremities no edema Neuro alert and orientated to 3 - Labs CBC & Chem 7: 11/14/17 05:47 11/14/17 05:47 Labs: Abnormal Lab Results - Last 24 Hours (Table) 11/13/17 11/13/17 11/13/17 Range/Units 13:15 13:15 13:15 WBC 12.7 H (3.8-10.6) k/uL Hgb 10.5 L (11.4-16.0) gm/dL Hct 33.5 L (34.0-46.0) % Neutrophils # 11.3 H (1.3-7.7) k/uL Lymphocytes # 0.9 L (1.0-4.8) k/uL Chloride (98-107) mmol/L Carbon Dioxide (22-30) mmol/L BUN 18 H (7-17) mg/dL Glucose 109 H (74-99) mg/dL Total Creatine Kinase (30-135) U/L Troponin I 0.048 H* (0.000-0.034) ng/mL 11/13/17 11/14/17 11/14/17 Range/Units 19:03 01:09 05:47 WBC 12.8 H (3.8-10.6) k/uL Hgb 10.2 L (11.4-16.0) gm/dL Hct 32.4 L (34.0-46.0) % Neutrophils # 9.1 H (1.3-7.7) k/uL Lymphocytes # (1.0-4.8) k/uL Chloride (98-107) mmol/L Carbon Dioxide (22-30) mmol/L BUN (7-17) mg/dL Glucose (74-99) mg/dL Total Creatine Kinase 27 L (30-135) U/L Troponin I 0.036 H* 0.042 H* (0.000-0.034) ng/mL 11/14/17 Range/Units 05:47 WBC (3.8-10.6) k/uL Hgb (11.4-16.0) gm/dL Hct (34.0-46.0) % Neutrophils # (1.3-7.7) k/uL Lymphocytes # (1.0-4.8) k/uL Chloride 96 L (98-107) mmol/L Carbon Dioxide 37 H (22-30) mmol/L BUN 22 H (7-17) mg/dL Glucose (74-99) mg/dL Total Creatine Kinase (30-135) U/L Troponin I (0.000-0.034) ng/mL Assessment and Plan Assessment: 1. Acute exacerbation of CHF likely acute systolic heart failure, elevated BNP. Patient remains on 40 mg IV Lasix every 12 hours. Cardiology services have been consulted and 2-D echo has been taken awaiting results. Norvasc has been discontinued per cardiology patient started angiotensin mike 2. Elevated troponin related to hypertensive heart disease or Non-STEMI with elevated troponin. Cardiology services following. Abnormal troponin, likely secondary to supply and demand mismatch 3. Acute hypoxic respirator failure related to pulmonary edema 4. History of hypertension and hypertensive cardiovascular disease and dyslipidemia. Per Cardiology services Norvasc have been discontinued and Cozaar has been added along with continuing Atenolol 5. Chronic peripheral neuropathy 6. SLEEP disorder breathing and sleep apnea 7. Severe morbid obesity DVT prophylaxis Lovenox, GI prophylaxis Protonix I performed an examination of the patient and discussed their management with the Nurse Practitioner. I have reviewed the Nurse Practitioner's notes and agree with the documented findings and plan of care
[2017-11-14] MEDS: ATENOLOL 50 MG TAB PO SCH (12:25)
[2017-11-14] MEDS: SPIRONOLACTONE-HCTZ 25-25MG 1 EACH TAB PO SCH (12:26)
--- NOTE | 2017-11-14 13:05 | ECHOF ---
Referral Reason:CHF MEASUREMENTS -------- HEIGHT: 157.5 cm WEIGHT: 95.3 kg BP: 158/70 RVIDd: 2.1 cm (< 3.3) IVSd: 1.3 cm (0.6 - 1.1) LVIDd: 4.4 cm (3.9 - 5.3) LVPWd: 1.3 cm (0.6 - 1.1) IVSs: 1.7 cm LVIDs: 2.6 cm LVPWs: 1.7 cm LAESV Index (A-L): 34.75 ml/m Ao Diam: 2.7 cm (2.0 - 3.7) AV Cusp: 0.8 cm (1.5 - 2.6) LA Diam: 3.7 cm (2.7 - 3.8) MV EXCURSION: 16.594 mm (> 18.000) MV EF SLOPE: 31 mm/s (70 - 150) EPSS: 0.5 cm MV E Alexsander: 1.65 m/s MV DecT: 322 ms MV A [place]sander: 1.73 m/s MV E/A Ratio: 0.95 AV maxP.15 mmHg AV meanP.83 mmHg RAP: 5.00 mmHg RVSP: 57.44 mmHg FINDINGS -------- Sinus rhythm. This was a technically difficult study with suboptimal views. The left ventricular size is normal. There is moderate concentric left ventricular hypertrophy. O verall left ventricular systolic function is normal with, an EF between 65 - 70 %. The right ventricle is normal in size and function. LA is moderately dilated 34-39 ml/m2 RA appears enlarged. 3 ml of Lumason used. Aortic valve is trileaflet and is moderately thickened. There is no evidence of aortic regurgitatio n. There is moderate aortic stenosis present. Peak/mean gradient across the Aortic Valve is 33.15 mmHg / 22.83mmHg. The mitral valve leaflets are mild to moderately thickened. Moderate mitral annular calcification present. [id number] mitral regurgitation is present. Mild tricuspid regurgitation present. There is moderate pulmonary hypertension. The right ventric ular systolic pressure, as measured by Doppler, is 57.44mmHg. Trace/mild (physiologic) pulmonic regurgitation. The aortic root size is normal. Normal inferior vena cava with normal inspiratory collapse consistent with estimated right atrial pre ssure of 5 mmHg. There is no pericardial effusion. CONCLUSIONS -------- 1. Sinus rhythm. 2. This was a technically difficult study with suboptimal views. 3. The left ventricular size is normal. 4. There is moderate concentric left ventricular hypertrophy. 5. Overall left ventricular systolic function is normal with, an EF between 65 - 70 %. 6. LA is moderately dilated 34-39 ml/m2 7. RA appears enlarged. 8. 3 ml of Lumason used. 9. Aortic valve is trileaflet and is moderately thickened. 10. There is moderate aortic stenosis present. 11. Peak/mean gradient across the Aortic Valve is 33.15mmHg / 22.83mmHg. 12. The mitral valve leaflets are mild to moderately thickened. 13. Moderate mitral annular calcification present. 14. [id number]-[id number] mitral regurgitation is present. 15. Mild tricuspid regurgitation present. 16. There is moderate pulmonary hypertension. 17. The right ventricular systolic pressure, as measured by Doppler, is 57.44mmHg. 18. Trace/mild (physiologic) pulmonic regurgitation. 19. The aortic root size is normal. 20. There is no pericardial effusion. MANAGER WAREHOUSE: Tony Gunter RDCS
[2017-11-14] MEDS: LEVOFLOXACIN 500 MG TAB PO SCH (16:32)
[2017-11-14] MEDS: LOSARTAN 25 MG TAB PO SCH (16:33)
[2017-11-14] MEDS: GABAPENTIN 300 MG CAP PO SCH (21:00)
[2017-11-14] MEDS: ALPRAZolam 0.25 MG TAB PO PRN (23:11)
[2017-11-15] MEDS: HYDROcodone/APAP 10-325MG 1 EACH TAB PO PRN ×2 (05:40→12:06)
[2017-11-15 06:48] LABS: Basophils # (A) 0.1 k/uL (0-0.2); Basophils % (A) 1 %; Eosinophils # (A) 0.7 k/uL (0-0.7); Eosinophils % (A) 7 %; HGB 11.5 gm/dL (11.4-16.0); Hypochromasia Moderate; Lymphocytes # (A) 2.2 k/uL (1.0-4.8); Lymphocytes % (A) 20 %; MCV 83.9 fL (80.0-100.0); Mean Platelet Volume 7.1; Monocytes # (A) 0.6 k/uL (0-1.0); Monocytes % (A) 6 %; Neutrophils # (A) 7.3 k/uL (1.3-7.7); Neutrophils % (A) 66 %; Platelet Count 390 k/uL (150-450); RBC 4.41 m/uL (3.80-5.40); RDW 15.3 % (11.5-15.5); WBC 11.1 k/uL (3.8-10.6)
[2017-11-15 06:56] LABS: Albumin 4.1 g/dL (3.5-5.0); Calcium 10.3 mg/dL (8.4-10.2); Potassium 3.9 mmol/L (3.5-5.1); Total Bilirubin 0.6 mg/dL (0.2-1.3); Total Protein 6.8 g/dL (6.3-8.2)
[2017-11-15] MEDS: PANTOPRAZOLE 40 MG TABLET PO SCH ×2 (07:09→17:37)
[2017-11-15 07:10] LABS: Poikilocytosis (M) Present
[2017-11-15] MEDS: ENOXAPARIN 40 MG/0.4 ML SYRINGE SQ SCH (08:15)
[2017-11-15] MEDS: SPIRONOLACTONE-HCTZ 25-25MG 1 EACH TAB PO SCH (08:15)
[2017-11-15] MEDS: ESCITALOPRAM 20 MG TAB PO SCH (08:15)
[2017-11-15] MEDS: FUROSEMIDE 10 MG/ML 4 ML VIAL IV SCH ×2 (08:15→21:52)
[2017-11-15] MEDS: LEVOFLOXACIN 500 MG TAB PO SCH (08:15)
[2017-11-15] MEDS: buPROPion XL 300 MG TAB.ER.24H PO SCH (08:15)
[2017-11-15] MEDS: LOSARTAN 25 MG TAB PO SCH (08:15)
[2017-11-15] MEDS: ATENOLOL 50 MG TAB PO SCH (08:16)
[2017-11-15] MEDS: GABAPENTIN 300 MG CAP PO SCH ×3 (08:16→21:52)
[2017-11-15] MEDS: DONEPEZIL 5 MG TAB PO SCH (08:16)
[2017-11-15] MEDS: ALBUTEROL NEBULIZED 2.5 MG/3 ML INHALATION PRN ×4 (08:18→21:19)
[2017-11-15] MEDS ORDERED: FAMOTIDINE 20 MG TAB PO SCH (09:00)
--- NOTE | 2017-11-15 14:37 | P.PN ---
Subjective Progress Note Date: 11/15/17 Principal diagnosis: Valvular heart disease associated with moderate aortic stenosis, moderate mitral regurgitation, moderate pulmonary hypertension, pulmonary fibrosis, congestive heart failure likely acute diastolic heart failure, mildly elevated troponin, acute hypoxic respirator failure, hypertension hypertensive cardiovascular disease, sleep disorder breathing and sleep apnea, severe morbid obesity 11/15/2017, patient seen eval examined during the rounds clinically doing better she is breathing comfortably denies any chest pain she still however get short of breath still have intermittent dry cough labs reviewed medications reviewed reviewed echocardiographic finding as well, patient had good ejection fraction of 60-70% however does have a moderate pulmonary hypertension and some valvular heart disease associated with moderate aortic stenosis and moderate mitral regurgitation Ammann she is still on nasal cannula 3 L oxygen with his sats in mid 90s, and the chest x-ray revealed diffuse interstitial and peribronchial opacities with a small effusion 11/14/2017 patient is currently sitting up in bed stating slightly improved from yesterday. Patient remains on 4 L oxygen which she currently does not wear at home. 2-D echo has been taken. Patient remains on 40mg Lasix IV every 12 hours. Patient denies chest pain or shortness of breath. Denies nausea vomiting or diarrhea 77-year-old female who was seen eval reexamined in the selective care patient has been having shortness of breath which has been progressive for the last 7- 10 days in addition patient was having some increased swelling of the lower extremity as well with those problem she came into the emergency department was seen eval reexamined subsequently admitted into the hospital, patient does has a history of chronic cough which however she feels that has stable and improved she also has a history of sleep disorder breathing and sleep apnea however never formally diagnosed with sleep studies, patient and daughter however expresses interest in undergoing sleep study as outpatient Patient was evaluated by her primary care physician this morning, felt to have new onset heart failure. Patient does describe lateral lower extremity swelling , she's had worsening exertional dyspnea as well as orthopnea and paroxysmal nocturnal dyspnea for the past one week. She denies any significant anterior or substernal chest pain. She does have some mild left anterior chest pain with deep inspiration. No fever or chills. No cough. No nausea vomiting or diarrhea. In the emergency department patient did receive IV furosemide along with BiPAP support I evaluated her on the floor and I was able to get her off of the BiPAP and placed on nasal cannula she was comfortable she admits BiPAP machine did help her significantly Objective - Vital Signs Vital signs: Vital Signs Temp 98.2 F 11/15/17 08:00 Pulse 76 11/15/17 12:08 Resp 16 11/15/17 08:00 BP 95/60 11/15/17 08:00 Pulse Ox 97 11/15/17 08:00 Intake & Output 11/14/17 11/15/17 11/15/17 18:59 06:59 18:59 Intake Total 800 342 Output Total 400 Balance 400 342 Weight 93 kg 91.7 kg Intake: Oral 800 342 Output: Urine 400 Other: Voiding Method Toilet Toilet Toilet # Voids 1 2 # Bowel Movements 0 - Exam - Constitutional General appearance: cooperative, mild distress, morbidly obese - EENT Eyes: anicteric sclerae, EOMI, PERRLA, normal appearance ENT: hearing grossly normal, normal oropharynx Ears: bilateral: normal - Neck Neck: normal ROM Carotids: bilateral: upstroke normal, bruit absent Thyroid: bilateral: normal size - Respiratory Respiratory: bilateral: rales (Predominantly at the bases) appears to be more Velcro type dry, negative: CTA, diminished, dullness, rhonchi, wheezing, prolonged expiration, prolonged inspiration - Cardiovascular Heart sounds: normal: S1, S2 (2 x 6 early systolic murmur is present and radiating towards the right carotid) Abnormal Heart Sounds: systolic murmur ankle Peripheral Edema: bilateral: Trace, 1+ - Gastrointestinal General gastrointestinal: distended, normal bowel sounds, soft - Integumentary Integumentary: normal, normal turgor - Neurologic Neurologic: CNII-XII intact - Musculoskeletal Musculoskeletal: gait normal, generalized weakness, strength equal bilaterally - Psychiatric Psychiatric: A&O x's 3, appropriate affect, intact judgment & insight - Labs CBC & Chem 7: 11/15/17 05:53 11/15/17 05:53 Labs: Abnormal Lab Results - Last 24 Hours (Table) 11/15/17 11/15/17 Range/Units 05:53 05:53 WBC 11.1 H (3.8-10.6) k/uL Chloride 94 L (98-107) mmol/L Carbon Dioxide 36 H (22-30) mmol/L BUN 28 H (7-17) mg/dL Creatinine 1.06 H (0.52-1.04) mg/dL Calcium 10.3 H (8.4-10.2) mg/dL Assessment and Plan Assessment: Acute hypoxic respiratory failure Acute exacerbation of CHF likely acute diastolic heart failure, elevated BNP, related to valvular heart disease with moderate aortic stenosis and moderate tricuspid regurgitation Pulmonary hypertension moderate degree Elevated troponin related to hypertensive heart disease Acute hypoxic respirator failure related to pulmonary edema Other associated processes like pulmonary fibrosis cannot be excluded History of hypertension and hypertensive cardiovascular disease and dyslipidemia Chronic peripheral neuropathy SLEEP disorder breathing and sleep apnea Severe morbid obesity Plan: Gentle diuresis Bronchodilator therapy Broad-spectrum antibiotics Titrated oxygen down as tolerated Obtain high resolution computed tomography scan of the chest Echocardiogram results and reports reviewed Repeat labs tomorrow Further recommendations pending plan of care as per clinical response of the patient Time with Patient: Greater than 30
--- NOTE | 2017-11-15 14:44 | P.PN ---
Subjective Progress Note Date: 11/15/17 Principal diagnosis: CHF This is a pleasant 77-year-old female who has a known history of hypertension, hyperlipidemia, GERD, quit smoking several years ago, who presents to the hospital with symptoms of progressively worsening shortness of breath with associated bilateral peripheral edema, positive PND and orthopnea. According to the patient, symptoms have been going on for over a week however they became severe on the weekend. He went to see her primary care doctor, Dr. Schwarz, who advised that the patient come to the hospital for further evaluation. Chest x-ray on admission here revealed a borderline to mild cardiomegaly with interstitial changes. CHF and pulmonary vascular congestion. Small pleural effusions with atelectasis and/or consolidation. EKG on arrival here showed a normal sinus rhythm with no acute changes. White blood cell count 12.8, hemoglobin 10.2, platelet count 323, sodium 138, potassium 3.7 , BUN 22, creatinine 0.9, magnesium 1.9, troponins 0.048 weeks, 0.036, 0.042. BNP level 4220. Blood pressure on arrival here 145/80, 88% O2 sat on room air, temperature 99.1. Rate in the 60s to 70s. Blood pressure this morning 146/60, heart rate in the 70s, 96% on 4 L of oxygen this morning. Patient was initiated on IV Lasix in the emergency room, she has diuresed well since her admission here, her weight this morning is down 2 kg from admission. At the time of my examination, patient states she did not sleep well last night and generally not feeling that well this morning. She does state that her breathing is improved however not back to her normal. 11/15/2017 Patient seen and examined this morning, feeling better overall. Weight is down 2 kg today, creatinine 1.0, echo revealed normal left ventricular systolic function with moderate aortic stenosis and mild to moderate MR. We will repeat a chest x-ray tomorrow morning and at present we will continue current dose of IV Lasix. Objective - Vital Signs Vital signs: Vital Signs Temp 98.2 F 11/15/17 08:00 Pulse 76 11/15/17 12:08 Resp 16 11/15/17 08:00 BP 95/60 11/15/17 08:00 Pulse Ox 97 11/15/17 08:00 Intake & Output 11/14/17 11/15/17 11/15/17 18:59 06:59 18:59 Intake Total 800 342 Output Total 400 Balance 400 342 Weight 93 kg 91.7 kg Intake: Oral 800 342 Output: Urine 400 Other: Voiding Method Toilet Toilet Toilet # Voids 1 2 # Bowel Movements 0 - Exam PHYSICAL EXAMINATION: GENERAL: 77-year-old female in no acute distress at the time of my examination HEENT: Head is atraumatic, normocephalic. Pupils equal, round. Sclera anicteric. Conjunctiva are clear. Mucous membranes of the mouth are moist. Neck is supple. There is no elevated jugular venous pressure. No carotid bruit is heard. HEART EXAINATION: [Heart S1, S2 systolic murmur heard.] CHEST EXAMINATION Lungs reveal diminished air entry to bilateral bases] ABDOMEN: [ Soft, nontender. Bowel sounds are heard. No organomegaly noted]. EXTREMITIES:[ 2+ peripheral pulses with no evidence of peripheral edema and no calf tenderness noted]. NEUROLOGIC [patient is awake, alert and oriented X3.] - Labs CBC & Chem 7: 11/15/17 05:53 11/15/17 05:53 Labs: Abnormal Lab Results - Last 24 Hours (Table) 11/15/17 11/15/17 Range/Units 05:53 05:53 WBC 11.1 H (3.8-10.6) k/uL Chloride 94 L (98-107) mmol/L Carbon Dioxide 36 H (22-30) mmol/L BUN 28 H (7-17) mg/dL Creatinine 1.06 H (0.52-1.04) mg/dL Calcium 10.3 H (8.4-10.2) mg/dL Assessment and Plan Plan: Assessment and plan #1 congestive heart failure, LV function unknown #2 hypertension #3 hyperlipidemia #4 GERD #5 anemia #6 prior history of smoking #7 abnormal troponin, likely secondary to supply and demand mismatch. #8 systolic murmur heard, rule out severe aortic stenosis. Plan Echocardiogram with Doppler study revealed normal left ventricular systolic function with evidence of moderate aortic stenosis and mild to moderate mitral regurgitation. We will continue current dose of IV Lasix. Repeat chest x-ray in the morning. DNP note has been reviewed, I agree with a documented findings and plan of care. Patient was seen and examined.
--- NOTE | 2017-11-15 18:22 | CT ---
EXAMINATION TYPE: CT chest wo con DATE OF EXAM: 11/15/2017 COMPARISON: None HISTORY: Patient complains of difficulty breathing. CT DLP: 932 mGycm. Automated Exposure Control for Dose Reduction was Utilized. TECHNIQUE: CT scan of the thorax is performed without IV contrast. FINDINGS: Multiple axial sections were obtained from the thoracic inlet to the diaphragm in the prone and supin e position. There is no contrast. There is some patchy interstitial infiltrate in the left lower lobe. There is no pleural effusion. Th e other lung bright are fairly clear. I see no significant interstitial lung disease. Heart is slight ly enlarged. There is mitral calcification. There are a few mediastinal lymph nodes that measure up to 1 cm. Thoracic aorta is atheromatous. Ther e is no evidence of aneurysm. IMPRESSION: Infiltrate at the left posterior lung base more likely related to pneumonia and atelectas is. Atherosclerotic vascular disease. Nonspecific small mediastinal lymph nodes..
[2017-11-16] MEDS: HYDROcodone/APAP 10-325MG 1 EACH TAB PO PRN ×3 (00:04→11:51)
[2017-11-16] MEDS: ALPRAZolam 0.25 MG TAB PO PRN ×2 (00:04→21:07)
[2017-11-16 06:19] LABS: Basophils # (A) 0.1 k/uL (0-0.2); Basophils % (A) 1 %; Eosinophils # (A) 0.7 k/uL (0-0.7); Eosinophils % (A) 6 %; HCT 35.9 % (34.0-46.0); Hypochromasia Moderate; Lymphocytes # (A) 2.2 k/uL (1.0-4.8); Lymphocytes % (A) 19 %; MCH 25.9 pg (25.0-35.0); MCHC 30.6 g/dL (31.0-37.0); MCV 84.6 fL (80.0-100.0); Mean Platelet Volume 6.6; Monocytes # (A) 0.6 k/uL (0-1.0); Monocytes % (A) 5 %; Neutrophils # (A) 7.7 k/uL (1.3-7.7); Neutrophils % (A) 68 %; Platelet Count 398 k/uL (150-450); RBC 4.25 m/uL (3.80-5.40); RDW 15.3 % (11.5-15.5); WBC 11.3 k/uL (3.8-10.6)
[2017-11-16 06:29] LABS: Potassium 3.8 mmol/L (3.5-5.1)
[2017-11-16 06:30] LABS: Total Bilirubin 0.4 mg/dL (0.2-1.3); Total Protein 6.7 g/dL (6.3-8.2)
[2017-11-16] MEDS: PANTOPRAZOLE 40 MG TABLET PO SCH ×2 (06:48→15:13)
[2017-11-16] MEDS: ENOXAPARIN 40 MG/0.4 ML SYRINGE SQ SCH (08:43)
[2017-11-16] MEDS: DONEPEZIL 5 MG TAB PO SCH (08:43)
[2017-11-16] MEDS: GABAPENTIN 300 MG CAP PO SCH ×3 (08:43→21:06)
[2017-11-16] MEDS: ATENOLOL 50 MG TAB PO SCH (08:44)
[2017-11-16] MEDS: FUROSEMIDE 10 MG/ML 4 ML VIAL IV SCH (08:44)
[2017-11-16] MEDS: ESCITALOPRAM 20 MG TAB PO SCH (08:44)
[2017-11-16] MEDS: buPROPion XL 300 MG TAB.ER.24H PO SCH (08:44)
[2017-11-16] MEDS: SPIRONOLACTONE-HCTZ 25-25MG 1 EACH TAB PO SCH (08:45)
[2017-11-16] MEDS: ALBUTEROL NEBULIZED 2.5 MG/3 ML INHALATION PRN ×2 (09:01→20:00)
--- NOTE | 2017-11-16 09:06 | XR ---
EXAMINATION TYPE: XR chest 2V DATE OF EXAM: 11/16/2017 COMPARISON: Prior chest 11/13/2017, chest CT 11/15/2017 HISTORY: Congestive heart failure TECHNIQUE: Frontal and lateral views of the chest are obtained. FINDINGS: There is improvement in aeration as compared to prior exam. Heart remains enlarged. Inters titium somewhat less conspicuous. No evident pneumothorax or pleural effusion. Minimal residual basil ar atelectatic change suspected. There are overlying cardiac leads. IMPRESSION: Improvement in patient's volume status, aeration.
[2017-11-16] MEDS: LOSARTAN 25 MG TAB PO SCH (11:52)
[2017-11-16] MEDS ORDERED: LEVOFLOXACIN 250 MG TAB PO SCH (14:00)
--- NOTE | 2017-11-16 14:18 | P.PN ---
Subjective Progress Note Date: 11/16/17 77-year-old female who was seen eval reexamined in the selective care patient has been having shortness of breath which has been progressive for the last 7- 10 days in addition patient was having some increased swelling of the lower extremity as well with those problem she came into the emergency department was seen eval reexamined subsequently admitted into the hospital, patient does has a history of chronic cough which however she feels that has stable and improved she also has a history of sleep disorder breathing and sleep apnea however never formally diagnosed with sleep studies, patient and daughter however expresses interest in undergoing sleep study as outpatient Patient was evaluated by her primary care physician this morning, felt to have new onset heart failure. Patient does describe lateral lower extremity swelling , she's had worsening exertional dyspnea as well as orthopnea and paroxysmal nocturnal dyspnea for the past one week. She denies any significant anterior or substernal chest pain. She does have some mild left anterior chest pain with deep inspiration. No fever or chills. No cough. No nausea vomiting or diarrhea. In the emergency department patient did receive IV furosemide along with BiPAP support I evaluated her on the floor and I was able to get her off of the BiPAP and placed on nasal cannula she was comfortable she admits BiPAP machine did help her significantly 11/14/2017 patient is currently sitting up in bed stating slightly improved from yesterday. Patient remains on 4 L oxygen which she currently does not wear at home. 2-D echo has been taken. Patient remains on 40mg Lasix IV every 12 hours. Patient denies chest pain or shortness of breath. Denies nausea vomiting or diarrhea 11/15/2017, patient seen eval examined during the rounds clinically doing better she is breathing comfortably denies any chest pain she still however get short of breath still have intermittent dry cough labs reviewed medications reviewed reviewed echocardiographic finding as well, patient had good ejection fraction of 60-70% however does have a moderate pulmonary hypertension and some valvular heart disease associated with moderate aortic stenosis and moderate mitral regurgitation Ammann she is still on nasal cannula 3 L oxygen with his sats in mid 90s, and the chest x-ray revealed diffuse interstitial and peribronchial opacities with a small effusion On 11/16/2017 patient is currently resting comfortably in bed on room air. Patient does state shortness of breath has improved. Patient's bun up to 41 and creatinine 1.63. Discussed case with cardiology. We'll plan to keep patient will more days to recheck labs per cardiology Lasix will be changed over to by mouth. Chest x-ray completed showing improvement in patient's volume status, areation. Cardiology and pulmonary service following. Anticipate discharge in the next 24-48 hours Objective - Vital Signs Vital signs: Vital Signs Temp 97.5 F L 11/16/17 11:50 Pulse 65 11/16/17 11:50 Resp 20 11/16/17 11:50 BP 105/50 11/16/17 11:50 Pulse Ox 95 11/16/17 11:50 Intake & Output 11/15/17 11/16/17 11/16/17 18:59 06:59 18:59 Intake Total 582 422 Output Total 900 1300 Balance 392 -597 -819 Weight 92.5 kg Intake: Oral 582 422 Output: Urine 900 1300 Other: Voiding Method Toilet Toilet Toilet # Voids 4 # Bowel Movements 0 - Exam Head normocephalic Neck supple Lungs diminished bilaterally Heart regular rate and rhythm S1-S2, no rub or gallop Abdomen is soft nontender nondistended positive bowel sounds no hepatosplenomegaly Extremities no edema Neuro alert and orientated to 3 - Labs CBC & Chem 7: 11/16/17 05:48 11/16/17 05:48 Labs: Abnormal Lab Results - Last 24 Hours (Table) 11/16/17 11/16/17 Range/Units 05:48 05:48 WBC 11.3 H (3.8-10.6) k/uL Hgb 11.0 L (11.4-16.0) gm/dL MCHC 30.6 L (31.0-37.0) g/dL Chloride 93 L (98-107) mmol/L Carbon Dioxide 34 H (22-30) mmol/L BUN 41 H (7-17) mg/dL Creatinine 1.63 H (0.52-1.04) mg/dL Glucose 111 H (74-99) mg/dL Assessment and Plan Assessment: 1. Acute exacerbation of CHF likely acute systolic heart failure, elevated BNP. Patient remains on 40 mg IV Lasix every 12 hours. Cardiology services have been consulted and 2-D echo has been taken awaiting results. Norvasc has been discontinued per cardiology patient started angiotensin mike. Showing improvement in patient's lung status and urination 2. Elevated troponin related to hypertensive heart disease or Non-STEMI with elevated troponin. Cardiology services following. Abnormal troponin, likely secondary to supply and demand mismatch 3. Acute hypoxic respirator failure related to pulmonary edema. Chest x-ray completed 4. History of hypertension and hypertensive cardiovascular disease and dyslipidemia. Per Cardiology services Norvasc have been discontinued and Cozaar has been added along with continuing Atenolol 5. Chronic peripheral neuropathy 6. SLEEP disorder breathing and sleep apnea 7. Severe morbid obesity 8. Acute kidney injury likely related to diuresing. Creatinine up to 1.63 and bun 41. Discussed case with cardiology. Lasix will be decreased to 20 by mouth twice a day. Will recheck labs in a.m. 9. Bronchitis. Patient has been placed on Levaquin 250 mg every [address] Antoni de los santos for pulmonary services. Chest x-ray completed showing improvement in patient's volume status, aeration. Anticipate discharge in the next 24-48 hours DVT prophylaxis Lovenox, GI prophylaxis Protonix I performed an examination of the patient and discussed their management with the Nurse Practitioner. I have reviewed the Nurse Practitioner's notes and agree with the documented findings and plan of care
--- NOTE | 2017-11-16 14:55 | P.PN ---
Subjective Progress Note Date: 11/16/17 Principal diagnosis: CHF This is a pleasant 77-year-old female who has a known history of hypertension, hyperlipidemia, GERD, quit smoking several years ago, who presents to the hospital with symptoms of progressively worsening shortness of breath with associated bilateral peripheral edema, positive PND and orthopnea. According to the patient, symptoms have been going on for over a week however they became severe on the weekend. He went to see her primary care doctor, Dr. Schwarz, who advised that the patient come to the hospital for further evaluation. Chest x-ray on admission here revealed a borderline to mild cardiomegaly with interstitial changes. CHF and pulmonary vascular congestion. Small pleural effusions with atelectasis and/or consolidation. EKG on arrival here showed a normal sinus rhythm with no acute changes. White blood cell count 12.8, hemoglobin 10.2, platelet count 323, sodium 138, potassium 3.7 , BUN 22, creatinine 0.9, magnesium 1.9, troponins 0.048 weeks, 0.036, 0.042. BNP level 4220. Blood pressure on arrival here 145/80, 88% O2 sat on room air, temperature 99.1. Rate in the 60s to 70s. Blood pressure this morning 146/60, heart rate in the 70s, 96% on 4 L of oxygen this morning. Patient was initiated on IV Lasix in the emergency room, she has diuresed well since her admission here, her weight this morning is down 2 kg from admission. At the time of my examination, patient states she did not sleep well last night and generally not feeling that well this morning. She does state that her breathing is improved however not back to her normal. 11/15/2017 Patient seen and examined this morning, feeling better overall. Weight is down 2 kg today, creatinine 1.0, echo revealed normal left ventricular systolic function with moderate aortic stenosis and mild to moderate MR. We will repeat a chest x-ray tomorrow morning and at present we will continue current dose of IV Lasix. 11/16/2017 Patient seen and examined this morning, breathing is significantly improved overall. Creatinine today is 1.6. We will discontinue the IV Lasix and change patient over to oral diuretics today. Check lytes BUN and creatinine in the morning, if stable plan for possible discharge home in 24 hours. Objective - Vital Signs Vital signs: Vital Signs Temp 97.5 F L 11/16/17 11:50 Pulse 65 11/16/17 11:50 Resp 20 11/16/17 11:50 BP 105/50 11/16/17 11:50 Pulse Ox 95 11/16/17 11:50 Intake & Output 11/15/17 11/16/17 11/16/17 18:59 06:59 18:59 Intake Total 582 422 Output Total 900 1300 Balance 545 -932 -154 Weight 92.5 kg Intake: Oral 582 422 Output: Urine 900 1300 Other: Voiding Method Toilet Toilet Toilet # Voids 4 # Bowel Movements 0 1 - Exam PHYSICAL EXAMINATION: GENERAL: 77-year-old female in no acute distress at the time of my examination HEENT: Head is atraumatic, normocephalic. Pupils equal, round. Sclera anicteric. Conjunctiva are clear. Mucous membranes of the mouth are moist. Neck is supple. There is no elevated jugular venous pressure. No carotid bruit is heard. HEART EXAINATION: [Heart S1, S2 systolic murmur heard.] CHEST EXAMINATION Lungs reveal diminished air entry to bilateral bases] ABDOMEN: [ Soft, nontender. Bowel sounds are heard. No organomegaly noted]. EXTREMITIES:[ 2+ peripheral pulses with no evidence of peripheral edema and no calf tenderness noted]. NEUROLOGIC [patient is awake, alert and oriented X3.] - Labs CBC & Chem 7: 11/16/17 05:48 11/16/17 05:48 Labs: Abnormal Lab Results - Last 24 Hours (Table) 11/16/17 11/16/17 Range/Units 05:48 05:48 WBC 11.3 H (3.8-10.6) k/uL Hgb 11.0 L (11.4-16.0) gm/dL MCHC 30.6 L (31.0-37.0) g/dL Chloride 93 L (98-107) mmol/L Carbon Dioxide 34 H (22-30) mmol/L BUN 41 H (7-17) mg/dL Creatinine 1.63 H (0.52-1.04) mg/dL Glucose 111 H (74-99) mg/dL Assessment and Plan Plan: Assessment and plan #1 congestive heart failure, diastolic acute on chronic #2 hypertension #3 hyperlipidemia #4 GERD #5 anemia #6 prior history of smoking #7 abnormal troponin, likely secondary to supply and demand mismatch. Representing type II VA #8 systolic murmur heard, rule out severe aortic stenosis. Plan Echocardiogram with Doppler study revealed normal left ventricular systolic function with evidence of moderate aortic stenosis and mild to moderate mitral regurgitation. We will discontinue IV Lasix and start the patient on oral diuretics today. Check lytes BUN and creatinine in the morning. If stable patient may be able to be discharged home in 24 hours.
[2017-11-16] MEDS: FUROSEMIDE 20 MG TAB PO SCH (15:14)
--- NOTE | 2017-11-16 17:39 | P.CNPUL ---
History of Present Illness Consult date: 11/16/17 Reason for consult: dyspnea, cough, hypoxemia, pneumonia Chief complaint: Shortness of breath cough and abnormal computed tomography scan History of present illness: 77-year-old female who was seen evaluated examined on selective care this patient admitted into the hospital with increasing shortness of breath started about a week ago and also noted increased cough which is dry and nonproductive also had increased swelling of the lower extremity workup and evaluation in the hospital revealed that patient has a normal ejection fraction but does have moderate pulmonary hypertension well with the heart disease in the form of moderate mitral regurgitation as well as tricuspid regurgitation was seen patient does require BiPAP in the beginning however able to taper and DC the BiPAP now on supplemental oxygen, cardiovascular services are following patient had echocardiogram which confirmed above findings, computed tomography scan of the chest was performed to look into possible explanation of pulmonary hypertension and interstitial lung disease patient however has been noted to have a left lower lobe interstitial pneumonia patient already has been placed on Levaquin which she is tolerating very well her symptoms have improved significantly, the diuresis as being switched from IV to oral Review of the data revealed that patient symptoms of shortness of breath which has been progressive for the last 7-10 days in addition patient was having some increased swelling of the lower extremity as well with those problem she came into the emergency department was seen eval reexamined subsequently admitted into the hospital, patient does has a history of chronic cough which however she feels that has stable and improved she also has a history of sleep disorder breathing and sleep apnea however never formally diagnosed with sleep studies, patient and daughter however expresses interest in undergoing sleep study as outpatient Patient was evaluated by her primary care physician prior to admit and day of admission, felt to have new onset heart failure. Patient does describe lateral lower extremity swelling, she's had worsening exertional dyspnea as well as orthopnea and paroxysmal nocturnal dyspnea for the past one week. She denies any significant anterior or substernal chest pain. She does have some mild left anterior chest pain with deep inspiration. No fever or chills. No cough. No nausea vomiting or diarrhea. In the emergency department patient did receive IV furosemide along with BiPAP support I evaluated her on the floor and I was able to get her off of the BiPAP and placed on nasal cannula she was comfortable she admits BiPAP machine did help her significantly Review of Systems All systems: negative Past Medical History Past Medical History: Cancer, COPD, GERD/Reflux, Hyperlipidemia, Hypertension, Osteoarthritis (OA) Additional Past Medical History / Comment(s): HIATAL HERNIA, HX SKIN CANCER , HEART MURMUR, BACK & HIP PAIN- USES CANE PRN. History of Any Multi-Drug Resistant Organisms: None Reported Past Surgical History: Bariatric Surgery, Bladder Surgery, Heart Catheterization , Joint Replacement, Orthopedic Surgery, Tonsillectomy Additional Past Surgical History / Comment(s): left shoulder surgery, rt knee replacement, bladder suspension, LAP BAND INSERTED AND REMOVED AFTER 1 YEAR., HEART CATH([facility]-2009?) TRH, right hip replacement Past Anesthesia/Blood Transfusion Reactions: No Reported Reaction, Motion Sickness Past Psychological History: Anxiety, Depression Smoking Status: Former smoker Past Alcohol Use History: None Reported, Occasional Past Drug Use History: None Reported - Past Family History Father Family Medical History: Congestive Heart Failure (CHF), CVA/TIA Additional Family Medical History / Comment(s): CABG Mother Family Medical History: No Reported History Medications and Allergies Home Medications Medication Instructions Recorded Confirmed Type Atenolol [Tenormin] 50 mg PO DAILY 12/08/14 11/13/17 History Escitalopram Oxalate [Lexapro] 20 mg PO DAILY 12/08/14 11/13/17 History Spironolactone-Hctz 25-25Mg 1 tab PO DAILY 12/08/14 11/13/17 History [Aldactazide 25-25 MG] amLODIPine [Norvasc] 5 mg PO DAILY 12/08/14 11/13/17 History Donepezil HCl [Aricept] 5 mg PO DAILY 04/12/17 11/13/17 History Albuterol Nebulized [Ventolin 2.5 mg INHALATION RT-QID PRN 04/24/17 11/13/17 History Nebulized] buPROPion XL [Wellbutrin XL] 300 mg PO DAILY 04/24/17 11/13/17 History ALPRAZolam [Xanax] 0.25 mg PO BID PRN 11/13/17 11/13/17 History Clindamycin HCl 600 mg PO ONCE PRN 11/13/17 11/13/17 History Gabapentin [Neurontin] 300 mg PO TID 11/13/17 11/13/17 History HYDROcodone/APAP 10-325MG [[place] 1 tab PO Q4HR PRN 11/13/17 11/13/17 History 10-325] Loratadine [Claritin] 10 mg PO DAILY 11/13/17 11/13/17 History Ranitidine HCl [Zantac] 300 mg PO BID 11/13/17 11/13/17 History predniSONE See Taper PO DAILY 11/13/17 11/13/17 History Allergies Allergy/AdvReac Type Severity Reaction Status Date / Time celecoxib [From Celebrex] Allergy Rash/Hives Verified 11/13/17 21:53 cephalexin monohydrate Allergy Rash/Hives Verified 11/13/17 21:53 [From Keflex] Penicillins Allergy Rash/Hives Verified 11/13/17 21:53 Sulfa (Sulfonamide Allergy Rash/Hives Verified 11/13/17 21:53 Antibiotics) Ulzjqeu-Xlo-Zlv Reductase AdvReac MUSCLE PAIN Verified 11/13/17 21:53 Inhibitor Physical Exam Vitals: Vital Signs Temp Pulse Pulse Resp BP BP Pulse Ox 11/16/17 15:11 97.5 F L 64 20 106/51 96 11/16/17 11:50 97.5 F L 65 20 105/50 95 11/16/17 09:11 70 16 11/16/17 09:01 76 16 11/16/17 08:35 98.3 F 70 16 101/64 94 L 11/16/17 04:00 97.5 F L 71 18 105/55 92 L 11/16/17 00:00 98.3 F 74 18 118/61 94 L 11/15/17 21:34 74 11/15/17 21:19 72 11/15/17 20:00 98.7 F 70 18 110/51 94 L Intake and Output 11/16/17 11/16/17 11/16/17 06:59 14:59 22:59 Intake Total 422 Output Total 900 1300 150 Balance -900 -878 -150 Intake: Oral 422 Output: Urine 900 1300 150 Other: Voiding Method Toilet Toilet Toilet # Bowel Movements 1 Weight 92.5 kg - Constitutional General appearance: cooperative, mild distress, morbidly obese - EENT Eyes: anicteric sclerae, EOMI, PERRLA, normal appearance ENT: hearing grossly normal, normal oropharynx Ears: bilateral: normal - Neck Neck: normal ROM Carotids: bilateral: upstroke normal, bruit absent Thyroid: bilateral: normal size - Respiratory Respiratory: bilateral: rales (Predominantly at the bases), negative: CTA, diminished, dullness, rhonchi, wheezing, prolonged expiration, prolonged inspiration - Cardiovascular Heart sounds: normal: S1, S2 (2 x 6 early systolic murmur is present and radiating towards the right carotid) Abnormal Heart Sounds: systolic murmur ankle Peripheral Edema: bilateral: Trace, 1+ - Gastrointestinal General gastrointestinal: distended, normal bowel sounds, soft - Integumentary Integumentary: normal, normal turgor - Neurologic Neurologic: CNII-XII intact - Musculoskeletal Musculoskeletal: gait normal, generalized weakness, strength equal bilaterally - Psychiatric Psychiatric: A&O x's 3, appropriate affect, intact judgment & insight Results - Laboratory Findings CBC and BMP: 11/16/17 05:48 11/16/17 05:48 PT/INR, D-dimer PT 10.2 sec (9.0-12.0) 11/13/17 13:15 INR 1.0 (<1.2) 11/13/17 13:15 Abnormal lab findings: Abnormal Labs 11/13/17 11/13/17 11/13/17 13:15 13:15 13:15 WBC 12.7 H Hgb 10.5 L Hct 33.5 L MCHC Neutrophils # 11.3 H Lymphocytes # 0.9 L Chloride Carbon Dioxide BUN 18 H Creatinine Glucose 109 H Calcium Total Creatine Kinase Troponin I 0.048 H* 11/13/17 11/14/17 11/14/17 19:03 01:09 05:47 WBC 12.8 H Hgb 10.2 L Hct 32.4 L MCHC Neutrophils # 9.1 H Lymphocytes # Chloride Carbon Dioxide BUN Creatinine Glucose Calcium Total Creatine Kinase 27 L Troponin I 0.036 H* 0.042 H* 11/14/17 11/15/17 11/15/17 05:47 05:53 05:53 WBC 11.1 H Hgb Hct MCHC Neutrophils # Lymphocytes # Chloride 96 L 94 L Carbon Dioxide 37 H 36 H BUN 22 H 28 H Creatinine 1.06 H Glucose Calcium 10.3 H Total Creatine Kinase Troponin I 11/16/17 11/16/17 05:48 05:48 WBC 11.3 H Hgb 11.0 L Hct MCHC 30.6 L Neutrophils # Lymphocytes # Chloride 93 L Carbon Dioxide 34 H BUN 41 H Creatinine 1.63 H Glucose 111 H Calcium Total Creatine Kinase Troponin I - Diagnostic Findings Chest x-ray: report reviewed, image reviewed CT scan - chest: report reviewed, image reviewed (Left lower lobe pneumonia) Assessment and Plan Assessment: Left lower lobe pneumonia Acute hypoxic respiratory failure Acute exacerbation of CHF likely acute diastolic heart failure, elevated BNP, related to valvular heart disease with moderate aortic stenosis and moderate tricuspid regurgitation Pulmonary hypertension moderate degree Elevated troponin related to hypertensive heart disease Acute hypoxic respirator failure related to pulmonary edema Other associated processes like pulmonary fibrosis cannot be excluded History of hypertension and hypertensive cardiovascular disease and dyslipidemia Chronic peripheral neuropathy SLEEP disorder breathing and sleep apnea Severe morbid obesity Plan: Would continue Levaquin dose has been adjusted as per renal functions Gentle diuresis Bronchodilator therapy Titrated oxygen down as tolerated Obtain high resolution computed tomography scan of the chest Echocardiogram results and reports reviewed Repeat labs tomorrow Further recommendations pending plan of care as per clinical response of the patient Time with Patient: Greater than 30
[2017-11-17] MEDS: HYDROcodone/APAP 10-325MG 1 EACH TAB PO PRN ×2 (05:32→12:14)
[2017-11-17] MEDS: PANTOPRAZOLE 40 MG TABLET PO SCH (06:20)
[2017-11-17 06:45] LABS: Basophils # (A) 0.1 k/uL (0-0.2); Basophils % (A) 1 %; Eosinophils # (A) 0.6 k/uL (0-0.7); Eosinophils % (A) 5 %; HCT 35.3 % (34.0-46.0); Hypochromasia Slight; Lymphocytes # (A) 1.3 k/uL (1.0-4.8); Lymphocytes % (A) 12 %; MCH 25.8 pg (25.0-35.0); MCV 83.1 fL (80.0-100.0); Mean Platelet Volume 7.1; Monocytes # (A) 0.6 k/uL (0-1.0); Monocytes % (A) 5 %; Neutrophils # (A) 8.4 k/uL (1.3-7.7); Neutrophils % (A) 76 %; Platelet Count 374 k/uL (150-450); RBC 4.26 m/uL (3.80-5.40); RDW 15.2 % (11.5-15.5); WBC 11.1 k/uL (3.8-10.6)
[2017-11-17 06:57] LABS: Albumin 3.8 g/dL (3.5-5.0); Calcium 10.1 mg/dL (8.4-10.2); Potassium 3.9 mmol/L (3.5-5.1); Total Bilirubin 0.5 mg/dL (0.2-1.3); Total Protein 6.5 g/dL (6.3-8.2)
[2017-11-17] MEDS: ATENOLOL 50 MG TAB PO SCH (07:28)
[2017-11-17] MEDS: buPROPion XL 300 MG TAB.ER.24H PO SCH (07:28)
[2017-11-17] MEDS: DONEPEZIL 5 MG TAB PO SCH (07:28)
[2017-11-17] MEDS: ENOXAPARIN 40 MG/0.4 ML SYRINGE SQ SCH (07:28)
[2017-11-17] MEDS: FUROSEMIDE 20 MG TAB PO SCH (07:29)
[2017-11-17] MEDS: LOSARTAN 25 MG TAB PO SCH (07:29)
[2017-11-17] MEDS: SPIRONOLACTONE-HCTZ 25-25MG 1 EACH TAB PO SCH (07:29)
[2017-11-17] MEDS: ESCITALOPRAM 20 MG TAB PO SCH (07:29)
[2017-11-17] MEDS: GABAPENTIN 300 MG CAP PO SCH (07:29)
[2017-11-17 07:39] VITALS: RESP 18
[2017-11-17 11:45] VITALS: BP 90/52; TEMP 98.6
[2017-11-17] MEDS: ALBUTEROL NEBULIZED 2.5 MG/3 ML INHALATION PRN (12:02)
[2017-11-17 12:12] VITALS: PULSE 77
--- NOTE | 2017-11-17 12:46 | P.PN ---
Subjective Progress Note Date: 11/17/17 Principal diagnosis: CHF This is a pleasant 77-year-old female who has a known history of hypertension, hyperlipidemia, GERD, quit smoking several years ago, who presents to the hospital with symptoms of progressively worsening shortness of breath with associated bilateral peripheral edema, positive PND and orthopnea. According to the patient, symptoms have been going on for over a week however they became severe on the weekend. He went to see her primary care doctor, Dr. Schwarz, who advised that the patient come to the hospital for further evaluation. Chest x-ray on admission here revealed a borderline to mild cardiomegaly with interstitial changes. CHF and pulmonary vascular congestion. Small pleural effusions with atelectasis and/or consolidation. EKG on arrival here showed a normal sinus rhythm with no acute changes. White blood cell count 12.8, hemoglobin 10.2, platelet count 323, sodium 138, potassium 3.7 , BUN 22, creatinine 0.9, magnesium 1.9, troponins 0.048 weeks, 0.036, 0.042. BNP level 4220. Blood pressure on arrival here 145/80, 88% O2 sat on room air, temperature 99.1. Rate in the 60s to 70s. Blood pressure this morning 146/60, heart rate in the 70s, 96% on 4 L of oxygen this morning. Patient was initiated on IV Lasix in the emergency room, she has diuresed well since her admission here, her weight this morning is down 2 kg from admission. At the time of my examination, patient states she did not sleep well last night and generally not feeling that well this morning. She does state that her breathing is improved however not back to her normal. 11/15/2017 Patient seen and examined this morning, feeling better overall. Weight is down 2 kg today, creatinine 1.0, echo revealed normal left ventricular systolic function with moderate aortic stenosis and mild to moderate MR. We will repeat a chest x-ray tomorrow morning and at present we will continue current dose of IV Lasix. 11/16/2017 Patient seen and examined this morning, breathing is significantly improved overall. Creatinine today is 1.6. We will discontinue the IV Lasix and change patient over to oral diuretics today. Check lytes BUN and creatinine in the morning, if stable plan for possible discharge home in 24 hours. 11/17/2017 Patient seen and examined this morning, feels well, denies any shortness of breath. Creatinine today is 1.4. From cardiology's perspective discharged home on her current medications. Follow-up appointment with Dr. VC Melo in the office post discharge. Lytes BUN and creatinine in a week. Objective - Vital Signs Vital signs: Vital Signs Temp 98.6 F 11/17/17 11:41 Pulse 77 11/17/17 12:12 Resp 18 11/17/17 11:45 BP 90/52 11/17/17 11:41 Pulse Ox 94 L 11/17/17 11:41 Intake & Output 11/16/17 11/17/17 11/17/17 18:59 06:59 18:59 Intake Total 782 110 Output Total 1450 1100 Balance -668 -990 Weight 91.7 kg Intake: IV 10 Invasive Line 1 10 Oral 782 100 Output: Urine 1450 1100 Other: Voiding Method Toilet Toilet # Bowel Movements 1 - Exam PHYSICAL EXAMINATION: GENERAL: 77-year-old female in no acute distress at the time of my examination HEENT: Head is atraumatic, normocephalic. Pupils equal, round. Sclera anicteric. Conjunctiva are clear. Mucous membranes of the mouth are moist. Neck is supple. There is no elevated jugular venous pressure. No carotid bruit is heard. HEART EXAINATION: [Heart S1, S2 systolic murmur heard.] CHEST EXAMINATION Lungs reveal diminished air entry to bilateral bases] ABDOMEN: [ Soft, nontender. Bowel sounds are heard. No organomegaly noted]. EXTREMITIES:[ 2+ peripheral pulses with no evidence of peripheral edema and no calf tenderness noted]. NEUROLOGIC [patient is awake, alert and oriented X3.] - Labs CBC & Chem 7: 11/17/17 05:49 11/17/17 05:49 Labs: Abnormal Lab Results - Last 24 Hours (Table) 11/17/17 11/17/17 Range/Units 05:49 05:49 WBC 11.1 H (3.8-10.6) k/uL Hgb 11.0 L (11.4-16.0) gm/dL Neutrophils # 8.4 H (1.3-7.7) k/uL Sodium 136 L (137-145) mmol/L Chloride 91 L (98-107) mmol/L Carbon Dioxide 35 H (22-30) mmol/L BUN 44 H (7-17) mg/dL Creatinine 1.40 H (0.52-1.04) mg/dL Glucose 109 H (74-99) mg/dL Assessment and Plan Plan: Assessment and plan #1 congestive heart failure, diastolic acute on chronic #2 hypertension #3 hyperlipidemia #4 GERD #5 anemia #6 prior history of smoking #7 abnormal troponin, likely secondary to supply and demand mismatch. Representing type II SD #8 systolic murmur heard, rule out severe aortic stenosis. Plan Cardiology's perspective, patient may be able to be discharged home today. We' ll make her a follow-up appointment to see Dr. VC Melo in the office. Lytes BUN and creatinine in one week.
--- NOTE | 2017-11-17 15:02 | P.DS ---
Providers Date of admission: 11/13/17 15:29 Expected date of discharge: 11/17/17 Attending physician: Concepcion Boyd Consults: 11/13/17 15:30 Consult Physician Routine Consulting Provider: Jael Melo Consult Reason/Comments: CHF, new onset Do you want consulting provider notified?: Yes 11/15/17 13:42 Consult Physician Routine Consulting Provider: Alon Corrales Consult Reason/Comments: pulmonary managment Do you want consulting provider notified?: Yes, Notify in am Primary care physician: Ngoc Schwarz [facility] Course: discharge Summary 1. Acute exacerbation of CHF likely acute systolic heart failure, elevated BNP. Patient remains on 40 mg IV Lasix every 12 hours. Cardiology services have been consulted and 2-D echo has been taken awaiting results. Norvasc has been discontinued per cardiology patient started angiotensin mike. Showing improvement in patient's lung status and urination. Patient cleared for discharge from cardiology standpoint. Patient will follow up outpatient in 1 week. 2. Elevated troponin related to hypertensive heart disease or Non-STEMI with elevated troponin. Cardiology services following. Abnormal troponin, likely secondary to supply and demand mismatch 3. Acute hypoxic respirator failure related to pulmonary edema. Chest x-ray completed 4. History of hypertension and hypertensive cardiovascular disease and dyslipidemia. Per Cardiology services Norvasc have been discontinued and Cozaar has been added along with continuing Atenolol. patients BP systolic 90's. Per nursing recheck systolic 103. Discussed case with Dr. Melo per Cardiology. OK to discharge on cozaar and Atenolol will be decreased to 25mg daily 5. Chronic peripheral neuropathy 6. SLEEP disorder breathing and sleep apnea 7. Severe morbid obesity 8. Acute kidney injury likely related to diuresing. Creatinine up to 1.63 and bun 41. Discussed case with cardiology. Lasix will be decreased to 20 by mouth twice a day. Will recheck labs in a.m.. Creatinine improving to 1.40. Will recheck in 1 week and be followed closely by PCP 9. Bronchitis. Patient has been placed on Levaquin 250 mg every [address] Corrales following for pulmonary services. Chest x-ray completed showing improvement in patient's volume status, aeration. Patinet will be d/c home on 3 days of levoquin. Ok to be discharged from Pulmonary standpoint Hospital course 77-year-old female who was seen eval reexamined in the selective care patient has been having shortness of breath which has been progressive for the last 7- 10 days in addition patient was having some increased swelling of the lower extremity as well with those problem she came into the emergency department was seen eval reexamined subsequently admitted into the hospital, patient does has a history of chronic cough which however she feels that has stable and improved she also has a history of sleep disorder breathing and sleep apnea however never formally diagnosed with sleep studies, patient and daughter however expresses interest in undergoing sleep study as outpatient Patient was evaluated by her primary care physician this morning, felt to have new onset heart failure. Patient does describe lateral lower extremity swelling , she's had worsening exertional dyspnea as well as orthopnea and paroxysmal nocturnal dyspnea for the past one week. She denies any significant anterior or substernal chest pain. She does have some mild left anterior chest pain with deep inspiration. No fever or chills. No cough. No nausea vomiting or diarrhea. In the emergency department patient did receive IV furosemide along with BiPAP support I evaluated her on the floor and I was able to get her off of the BiPAP and placed on nasal cannula she was comfortable she admits BiPAP machine did help her significantly 11/14/2017 patient is currently sitting up in bed stating slightly improved from yesterday. Patient remains on 4 L oxygen which she currently does not wear at home. 2-D echo has been taken. Patient remains on 40mg Lasix IV every 12 hours. Patient denies chest pain or shortness of breath. Denies nausea vomiting or diarrhea 11/15/2017, patient seen eval examined during the rounds clinically doing better she is breathing comfortably denies any chest pain she still however get short of breath still have intermittent dry cough labs reviewed medications reviewed reviewed echocardiographic finding as well, patient had good ejection fraction of 60-70% however does have a moderate pulmonary hypertension and some valvular heart disease associated with moderate aortic stenosis and moderate mitral regurgitation Ammann she is still on nasal cannula 3 L oxygen with his sats in mid 90s, and the chest x-ray revealed diffuse interstitial and peribronchial opacities with a small effusion On 11/16/2017 patient is currently resting comfortably in bed on room air. Patient does state shortness of breath has improved. Patient's bun up to 41 and creatinine 1.63. Discussed case with cardiology. We'll plan to keep patient will more days to recheck labs per cardiology Lasix will be changed over to by mouth. Chest x-ray completed showing improvement in patient's volume status, areation. Cardiology and pulmonary service following. Anticipate discharge in the next 24-48 hours On 11/17/2017 Patient is currently resting comfortably in bed on room air. Patient has been cleared for discharge from cardiology and Pulmonary. Patient did have blood pressures in the low hundreds. Discussed case with Dr. Melo per cardiology, Cozaar will be continued and Atenolol will be decreased to 25mg PO. CMP will be ordered for 1 week and Kidney levels will be followed up closely by PCP. I performed an examination of the patient and discussed their management with the Nurse Practitioner. I have reviewed the Nurse Practitioner's notes and agree with the documented findings and plan of care Patient Condition at Discharge: Stable Plan - Discharge Summary New Discharge Prescriptions: New Furosemide [Lasix] 20 mg PO BID@0900,1600 #60 tab Atenolol 25 mg PO DAILY #30 tablet Levofloxacin [Levaquin] 250 mg PO DAILY 3 Days #3 tab Losartan [Cozaar] 25 mg PO DAILY tab Continue Spironolactone-Hctz 25-25Mg [Aldactazide 25-25 MG] 1 tab PO DAILY Escitalopram Oxalate [Lexapro] 20 mg PO DAILY Donepezil HCl [Aricept] 5 mg PO DAILY Albuterol Nebulized [Ventolin Nebulized] 2.5 mg INHALATION RT-QID PRN PRN Reason: Shortness Of Breath buPROPion XL [Wellbutrin XL] 300 mg PO DAILY ALPRAZolam [Xanax] 0.25 mg PO BID PRN PRN Reason: Anxiety Clindamycin HCl 600 mg PO ONCE PRN PRN Reason: DENTAL WORK Gabapentin [Neurontin] 300 mg PO TID HYDROcodone/APAP 10-325MG [[place] 10-325] 1 tab PO Q4HR PRN PRN Reason: Pain Loratadine [Claritin] 10 mg PO DAILY Ranitidine HCl [Zantac] 300 mg PO BID Discontinued Atenolol [Tenormin] 50 mg PO DAILY amLODIPine [Norvasc] 5 mg PO DAILY predniSONE See Taper PO DAILY Discharge Medication List Escitalopram Oxalate [Lexapro] 20 mg PO DAILY 12/08/14 [History] Spironolactone-Hctz 25-25Mg [Aldactazide 25-25 MG] 1 tab PO DAILY 12/08/14 [ History] Donepezil HCl [Aricept] 5 mg PO DAILY 04/12/17 [History] Albuterol Nebulized [Ventolin Nebulized] 2.5 mg INHALATION RT-QID PRN 04/24/17 [ History] buPROPion XL [Wellbutrin XL] 300 mg PO DAILY 04/24/17 [History] ALPRAZolam [Xanax] 0.25 mg PO BID PRN 11/13/17 [History] Clindamycin HCl 600 mg PO ONCE PRN 11/13/17 [History] Gabapentin [Neurontin] 300 mg PO TID 11/13/17 [History] HYDROcodone/APAP 10-325MG [[place] 10-325] 1 tab PO Q4HR PRN 11/13/17 [History] Loratadine [Claritin] 10 mg PO DAILY 11/13/17 [History] Ranitidine HCl [Zantac] 300 mg PO BID 11/13/17 [History] Atenolol 25 mg PO DAILY #30 tablet 11/17/17 [Rx] Furosemide [Lasix] 20 mg PO BID@0900,1600 #60 tab 11/17/17 [Rx] Levofloxacin [Levaquin] 250 mg PO DAILY 3 Days #3 tab 11/17/17 [Rx] Losartan [Cozaar] 25 mg PO DAILY tab 11/17/17 [Rx] Follow up Appointment(s)/Referral(s): [facility] [Provider Group] - 1 Week Ngoc Schwarz MD [Primary Care Provider] - 11/22/17 11:30 am [facility], [NON-STAFF] - Alon Corrales MD [STAFF PHYSICIAN] - 1 Week Patient Instructions/Handouts: Heart Failure (DC), Heart Healthy Diet (DC)
--- NOTE | 2017-11-17 15:26 | P.PN ---
Subjective Progress Note Date: 11/17/17 Principal diagnosis: Valvular heart disease associated with moderate aortic stenosis, moderate mitral regurgitation, moderate pulmonary hypertension, pulmonary fibrosis, congestive heart failure likely acute diastolic heart failure, mildly elevated troponin, acute hypoxic respirator failure, hypertension hypertensive cardiovascular disease, sleep disorder breathing and sleep apnea, severe morbid obesity 77-year-old female who was seen evaluated examined on selective care this patient admitted into the hospital with increasing shortness of breath started about a week ago and also noted increased cough which is dry and nonproductive also had increased swelling of the lower extremity workup and evaluation in the hospital revealed that patient has a normal ejection fraction but does have moderate pulmonary hypertension well with the heart disease in the form of moderate mitral regurgitation as well as tricuspid regurgitation was seen patient does require BiPAP in the beginning however able to taper and DC the BiPAP now on supplemental oxygen, cardiovascular services are following patient had echocardiogram which confirmed above findings, computed tomography scan of the chest was performed to look into possible explanation of pulmonary hypertension and interstitial lung disease patient however has been noted to have a left lower lobe interstitial pneumonia patient already has been placed on Levaquin which she is tolerating very well her symptoms have improved significantly, the diuresis as being switched from IV to oral Review of the data revealed that patient symptoms of shortness of breath which has been progressive for the last 7-10 days in addition patient was having some increased swelling of the lower extremity as well with those problem she came into the emergency department was seen eval reexamined subsequently admitted into the hospital, patient does has a history of chronic cough which however she feels that has stable and improved she also has a history of sleep disorder breathing and sleep apnea however never formally diagnosed with sleep studies, patient and daughter however expresses interest in undergoing sleep study as outpatient Patient was evaluated by her primary care physician prior to admit and day of admission, felt to have new onset heart failure. Patient does describe lateral lower extremity swelling, she's had worsening exertional dyspnea as well as orthopnea and paroxysmal nocturnal dyspnea for the past one week. She denies any significant anterior or substernal chest pain. She does have some mild left anterior chest pain with deep inspiration. No fever or chills. No cough. No nausea vomiting or diarrhea. In the emergency department patient did receive IV furosemide along with BiPAP support I evaluated her on the floor and I was able to get her off of the BiPAP and placed on nasal cannula she was comfortable she admits BiPAP machine did help her significantly 11/17/2017, patient seen yecenia examined during the rounds clinically has been doing well awake and alert breathing currently patient is off of oxygen daughter is present at the bedside detailed discussions were done about the echocardiogram finding, pulmonary hypertension pneumonia and heart failure also emphasized the importance of going through polysomnogram in getting the sleep study done Objective - Vital Signs Vital signs: Vital Signs Temp 98.6 F 11/17/17 11:41 Pulse 77 11/17/17 12:12 Resp 18 11/17/17 11:45 BP 90/52 11/17/17 11:41 Pulse Ox 94 L 11/17/17 11:41 Intake & Output 11/16/17 11/17/17 11/17/17 18:59 06:59 18:59 Intake Total 782 110 Output Total 1450 1100 Balance -668 -990 Weight 91.7 kg Intake: IV 10 Invasive Line 1 10 Oral 782 100 Output: Urine 1450 1100 Other: Voiding Method Toilet Toilet # Bowel Movements 1 - Exam - Constitutional General appearance: cooperative, mild distress, morbidly obese - EENT Eyes: anicteric sclerae, EOMI, PERRLA, normal appearance ENT: hearing grossly normal, normal oropharynx Ears: bilateral: normal - Neck Neck: normal ROM Carotids: bilateral: upstroke normal, bruit absent Thyroid: bilateral: normal size - Respiratory Respiratory: bilateral: rales (Predominantly at the bases) appears to be more Velcro type dry, negative: CTA, diminished, dullness, rhonchi, wheezing, prolonged expiration, prolonged inspiration - Cardiovascular Heart sounds: normal: S1, S2 (2 x 6 early systolic murmur is present and radiating towards the right carotid) Abnormal Heart Sounds: systolic murmur ankle Peripheral Edema: bilateral: Trace, 1+ - Gastrointestinal General gastrointestinal: distended, normal bowel sounds, soft - Integumentary Integumentary: normal, normal turgor - Neurologic Neurologic: CNII-XII intact - Musculoskeletal Musculoskeletal: gait normal, generalized weakness, strength equal bilaterally - Psychiatric Psychiatric: A&O x's 3, appropriate affect, intact judgment & insight - Labs CBC & Chem 7: 11/17/17 05:49 11/17/17 05:49 Labs: Abnormal Lab Results - Last 24 Hours (Table) 11/17/17 11/17/17 Range/Units 05:49 05:49 WBC 11.1 H (3.8-10.6) k/uL Hgb 11.0 L (11.4-16.0) gm/dL Neutrophils # 8.4 H (1.3-7.7) k/uL Sodium 136 L (137-145) mmol/L Chloride 91 L (98-107) mmol/L Carbon Dioxide 35 H (22-30) mmol/L BUN 44 H (7-17) mg/dL Creatinine 1.40 H (0.52-1.04) mg/dL Glucose 109 H (74-99) mg/dL Assessment and Plan Assessment: Left lower lobe pneumonia Acute hypoxic respiratory failure Acute exacerbation of CHF likely acute diastolic heart failure, elevated BNP, related to valvular heart disease with moderate aortic stenosis and moderate tricuspid regurgitation Pulmonary hypertension moderate degree Elevated troponin related to hypertensive heart disease Acute hypoxic respirator failure related to pulmonary edema Other associated processes like pulmonary fibrosis cannot be excluded History of hypertension and hypertensive cardiovascular disease and dyslipidemia Chronic peripheral neuropathy SLEEP disorder breathing and sleep apnea Severe morbid obesity Plan: Would continue Levaquin dose has been adjusted as per renal functions Gentle diuresis Bronchodilator therapy Titrated oxygen down as tolerated Obtain high resolution computed tomography scan of the chest Echocardiogram results and reports reviewed Agree with discharge planning with follow-up in outpatient setting Further recommendations pending plan of care as per clinical response of the patient Time with Patient: Greater than 30
[2017-11-18] MEDS ORDERED: ENOXAPARIN 30 MG/0.3 ML SYRINGE SQ SCH (09:00)
[2017-11-18] MEDS ORDERED: LEVOFLOXACIN 250 MG TAB PO SCH (09:00)
== END 2017-11-17 16:45 | disposition home or self-care (01) | DRG 280 ==
LOC: EC 12:05 → 6SEL 15:29
PROVIDERS: ADMIT Internal Medicine; ATTEND Internal Medicine
DX: I11.0 Hypertensive heart disease with heart failure (principal); I21.A1 Myocardial infarction type 2; J18.9 Pneumonia, unspecified organism; J96.01 Acute respiratory failure with hypoxia; J44.0 Chronic obstructive pulmonary disease with (acute) lower respiratory infection; N17.9 Acute kidney failure, unspecified; J98.11 Atelectasis; I08.3 Combined rheumatic disorders of mitral, aortic and tricuspid valves; G62.9 Polyneuropathy, unspecified; I27.20 Pulmonary hypertension, unspecified; I50.43 Acute on chronic combined systolic (congestive) and diastolic (congestive) heart failure; J84.10 Pulmonary fibrosis, unspecified; K21.9 Gastro-esophageal reflux disease without esophagitis; Z79.52 Long term (current) use of systemic steroids; Z79.899 Other long term (current) drug therapy; Z82.49 Family history of ischemic heart disease and other diseases of the circulatory system; Z85.828 Personal history of other malignant neoplasm of skin; Z87.891 Personal history of nicotine dependence; Z96.641 Presence of right artificial hip joint; Z96.651 Presence of right artificial knee joint; D64.9 Anemia, unspecified; E66.01 Morbid (severe) obesity due to excess calories; Z68.37 Body mass index [BMI] 37.0-37.9, adult; E78.5 Hyperlipidemia, unspecified; F32.9 Major depressive disorder, single episode, unspecified; F41.9 Anxiety disorder, unspecified; G47.30 Sleep apnea, unspecified; K44.9 Diaphragmatic hernia without obstruction or gangrene; M54.9 Dorsalgia, unspecified; T50.2X5A Adverse effect of carbonic-anhydrase inhibitors, benzothiadiazides and other diuretics, initial encounter; Z88.1 Allergy status to other antibiotic agents; Z88.0 Allergy status to penicillin; Z88.2 Allergy status to sulfonamides; Z88.8 Allergy status to other drugs, medicaments and biological substances; M19.90 Unspecified osteoarthritis, unspecified site
CPT/HCPCS: 36415; 71046; 71250; 80053; 82550; 82553; 83735; 83880; 84484; 85025; 85610; 85730; 93005; 93306; 94640; 94660; 94760; 96374; 99285

== ENCOUNTER → 2018-01-08 | Outpatient (CLI) | payer MEDICARE ==
--- NOTE | 2018-01-09 09:29 | MM ---
Reason for exam: screening (asymptomatic). Last mammogram was performed 1 year and 1 month ago. History: Patient is postmenopausal and has history of other cancer at age 50. Excisional biopsy of the left breast. 2 excisional biopsies of the right breast. Took estrogen for 2 years. Physical Findings: A clinical breast exam by your physician is recommended on an annual basis and results should be correlated with mammographic findings. MG 3D Screening Mammo W/Cad Bilateral CC and MLO view(s) were taken. Prior study comparison: December 02, 2016, bilateral MG 3d screening mammo w/cad. October 13, 2015, bilateral MG 3d screening mammo w/cad. The breast tissue is heterogeneously dense. This may lower the sensitivity of mammography. Finding #1: Questionable architectural distortion in the subareolar position of the right breast. Finding #2: There are typically benign calcifications in both breasts. ASSESSMENT: Incomplete: need additional imaging evaluation, BI-RAD 0 RECOMMENDATION: Special view mammogram of the right breast. If lesion persists on supplemental views, image directed ultrasound is recommended. [facility] will attempt to contact patient to return for supplemental views and ultrasound if indicated.
== END | disposition home or self-care (01) ==
LOC: RADMAMWWP 11:59
PROVIDERS: ATTEND Family Medicine
DX: Z12.31 Encounter for screening mammogram for malignant neoplasm of breast (principal)
CPT/HCPCS: 77063; 77067

== ENCOUNTER → 2018-01-22 | Outpatient (CLI) | payer MEDICARE ==
--- NOTE | 2018-01-22 13:54 | MM ---
Reason for exam: additional evaluation requested from abnormal screening. Last mammogram was performed less than 1 month ago. History: Patient is postmenopausal and has history of other cancer at age 50. Excisional biopsy of the left breast. 2 excisional biopsies of the right breast. Took estrogen for 2 years. Physical Findings: Nurse did not find any significant physical abnormalities on exam. MG 3D Work Up W/Cad RT Spot compression CC, spot compression MLO, and LM view(s) were taken of the right breast. Prior study comparison: January 08, 2018, bilateral MG 3d screening mammo w/cad. December 02, 2016, bilateral MG 3d screening mammo w/cad. There are scattered fibroglandular densities. Stable fat necrosis calcifications. Questioned distortion becomes less defined with an appearance similar to older priors. 6 month follow up recommended. These results were verbally communicated with the patient and result sheet given to the patient on 01/22/18. ASSESSMENT: Probably benign, BI-RAD 3 RECOMMENDATION: Follow-up diagnostic mammogram of the right breast in 6 months.
== END | disposition home or self-care (01) ==
LOC: RADMAMWWP 12:53
PROVIDERS: ATTEND Family Medicine
DX: R92.8 Other abnormal and inconclusive findings on diagnostic imaging of breast (principal)
CPT/HCPCS: 77065; G0279; 77061

== ENCOUNTER → 2018-04-26 | Outpatient (CLI) | payer MEDICARE ==
--- NOTE | 2018-04-26 17:22 | CONS ---
CONSULTATION DATE OF SERVICE: 04/26/2018 This patient is a 77-year-old lady who has been evaluated in the sleep center for possible obstructive sleep apnea-hypopnea syndrome. HISTORY OF PRESENT ILLNESS/SLEEP-WAKE EVALUATION: Patient usually goes to bed at 11 p.m. and sleeps until 6:30 a.m. Then she may take a nap around 10 a.m. and a second nap usually in the afternoon. She does snore and wakes up from sleep with nocturia up to 2 times. During the day she has problems with memory and concentration. [place] Sleepiness Scale is 5. Sometimes there are symptoms of restless legs while she is falling asleep. PAST MEDICAL HISTORY: Positive for: 1. Hypertension. 2. Episodes of CHF. 3. Depression. 4. Anxiety. 5. Allergies. 6. Acid reflux. PAST SURGICAL HISTORY: 1. Right hip replacement. 2. Right knee replacement. 3. Left shoulder surgery. MEDICATIONS: 1. . 2. Aldactazide. 3. Cozaar. 4. Zantac. 5. Motrin. 6. Protonix. 7. Wellbutrin. 8. Claritin. 9. Atenolol. 10.Xanax. 11.Vitamin D supplement. SOCIAL HISTORY: Positive for smoking for about 20 years, less than a pack a day; quit 35 years ago. Alcohol consumption occasional. FAMILY HISTORY: Hypertension, heart problems, stroke, arthritis, snoring, bronchitis, acid reflux. REVIEW OF SYSTEMS: Awakenings from sleep, tiredness and sleepiness during the day. PHYSICAL EXAMINATION: GENERAL: A pleasant lady without distress. VITAL SIGNS: BP 127/66, HR 90, RR 16, height 5 feet 1 inch, weight 201 pounds, body mass index 37.9, temperature 99.6, oxygen saturation at room air 92%. HEENT: PERRLA, EOMI. Evaluation of oropharynx showed tongue protrudes midline. Extremely low position of soft palate. Mallampati IV. NECK: Supple. No JVD. Thyroid is not palpable. Wide neck; 16-1/2 inches in circumference. LUNGS: Clear to percussion and to auscultation. Good air exchange. No wheezing or rhonchi. HEART: Loud systolic murmur on aorta. ABDOMEN: Slightly obese. EXTREMITIES: No clubbing or cyanosis. SCHOOL LUNCH MONITOR: Awake, alert, and oriented X3. Cranial nerves 2 to 7 intact. There is no fasciculation or atrophy. noted. No focal deficits observed. IMPRESSION: 1. Snoring, awakenings from sleep with nocturia, extremely low position of soft palate, wide neck; obstructive sleep apnea-hypopnea syndrome. 2. Obesity; body mass index 37.9. 3. Restless leg symptoms. 4. Hypertension. 5. History of congestive heart failure episode. 6. History of depression. 7. History of anxiety. 8. Allergies. 9. Acid reflux. 10.Status post total right knee replacement. 11.Status post total right hip replacement. 12.Status post left shoulder surgery. PLAN: 1. Polysomnography for evaluation of patient's breathing during sleep. 2. CPAP/BiPAP titration if sleep study confirms obstructive sleep apnea-hypopnea syndrome. 3. Preferable position during sleep on the side. 4. No driving if patient feels any sleepiness. 5. I will see patient for follow up visit to explain results of testing and following plan. Thank you very much for referring this patient for consultation. Sincerely, Janak Washington MD, PhD, FAASM Diplomat of [employer] Learning Services Coordinator of [facility] [place] MMODL / IJN: [id number] /
== END | disposition home or self-care (01) ==
LOC: SLEEP 15:35
PROVIDERS: ATTEND Internal Medicine
DX: G47.33 Obstructive sleep apnea (adult) (pediatric) (principal); R35.1 Nocturia; G25.81 Restless legs syndrome; E66.9 Obesity, unspecified; I10 Essential (primary) hypertension; T78.40XA Allergy, unspecified, initial encounter; F41.9 Anxiety disorder, unspecified; F32.9 Major depressive disorder, single episode, unspecified; K21.9 Gastro-esophageal reflux disease without esophagitis; Z96.651 Presence of right artificial knee joint; Z96.641 Presence of right artificial hip joint; Z98.890 Other specified postprocedural states; Z87.891 Personal history of nicotine dependence; Z86.79 Personal history of other diseases of the circulatory system; Z79.1 Long term (current) use of non-steroidal anti-inflammatories (NSAID); Z68.37 Body mass index [BMI] 37.0-37.9, adult
CPT/HCPCS: 99211

== ENCOUNTER → 2018-07-23 | Outpatient (CLI) | payer MEDICARE ==
--- NOTE | 2018-07-23 11:56 | MM ---
Reason for exam: follow-up at short interval from prior study. Last mammogram was performed 6 months ago. History: Patient is postmenopausal and has history of other cancer at age 50. Excisional biopsy of the left breast. 2 excisional biopsies of the right breast. Took estrogen for 2 years. Physical Findings: Nurse did not find any significant physical abnormalities on exam. MG 3D Diag Mammo W/Cad RT CC, MLO, and ML view(s) were taken of the right breast. Prior study comparison: January 22, 2018, right breast MG 3d work up w/cad RT. January 08, 2018, bilateral MG 3d screening mammo w/cad. December 02, 2016, bilateral MG 3d screening mammo w/cad. October 13, 2015, bilateral MG 3d screening mammo w/cad. There are scattered fibroglandular densities. No significant new findings when compared with previous films. These results were verbally communicated with the patient and result sheet given to the patient on 07/23/18. ASSESSMENT: Negative, BI-RAD 1 RECOMMENDATION: Return to routine screening mammogram schedule for both breasts. Back on schedule.
== END ==
LOC: RADMAMWWP 11:02
PROVIDERS: ATTEND Family Medicine
DX: R92.8 Other abnormal and inconclusive findings on diagnostic imaging of breast (principal)
CPT/HCPCS: 77065; G0279; 77061

== ENCOUNTER → 2018-11-29 | Outpatient (CLI) | payer MEDICARE ==
--- NOTE | 2018-11-29 14:45 | CT ---
EXAMINATION TYPE: CT chest wo con DATE OF EXAM: 11/29/2018 COMPARISON: High resolution chest CT November 15, 2017. HISTORY: Dyspnea CT DLP: 556.9 mGycm. Automated Exposure Control for Dose Reduction was Utilized. TECHNIQUE: CT scan of the thorax is performed without IV contrast. FINDINGS: LUNGS: Patchy left basilar atelectasis and/or scarring. Mild peripheral reticulation right upper lobe . No suspicious consolidation or focal ground glass opacity. There is no pleural effusion or pneumot horax seen bilaterally. The tracheobronchial tree is patent. MEDIASTINUM: Lack of IV contrast is noted to limit evaluation for mediastinal and especially hilar ad enopathy. There are no definitive greater than 1 cm hilar or mediastinal lymph nodes. No cardiomega ly or pericardial effusion is seen. Dense calcification at level of mitral valve. At least moderate t hree-vessel coronary artery calcification redemonstrated which is noted marker for underlying coronar y artery disease. Moderate left atrial dilatation noted. OTHER: Slight S-shaped scoliotic curvature. Mild to moderate multilevel spurring in the spine. IMPRESSION: Mild chronic parenchymal changes without suspicious acute pulmonary process.
== END | disposition home or self-care (01) ==
LOC: RADCTMAIN 13:41
PROVIDERS: ATTEND Internal Medicine Pulmonary Disease
DX: J45.50 Severe persistent asthma, uncomplicated (principal); R06.00 Dyspnea, unspecified; I35.0 Nonrheumatic aortic (valve) stenosis; E66.9 Obesity, unspecified; G47.30 Sleep apnea, unspecified; I50.9 Heart failure, unspecified; Z88.2 Allergy status to sulfonamides; Z88.0 Allergy status to penicillin; Z88.6 Allergy status to analgesic agent; Z88.1 Allergy status to other antibiotic agents
CPT/HCPCS: 71250

== ENCOUNTER → 2019-02-12 | Outpatient (CLI) | payer MEDICARE ==
--- NOTE | 2019-02-14 09:46 | MM ---
Reason for exam: screening (asymptomatic). Last mammogram was performed 7 months ago. History: Patient is postmenopausal and has history of other cancer at age 50. Excisional biopsy of the left breast. 2 excisional biopsies of the right breast. Took estrogen for 2 years. Physical Findings: A clinical breast exam by your physician is recommended on an annual basis and results should be correlated with mammographic findings. MG 3D Screening Mammo W/Cad Bilateral CC and MLO view(s) were taken. Prior study comparison: July 23, 2018, right breast MG 3d diag mammo w/cad RT. January 22, 2018, right breast MG 3d work up w/cad RT. There are scattered fibroglandular densities. Stable benign calcifications. There is no discrete abnormality. No significant changes when compared with prior studies. ASSESSMENT: Benign, BI-RAD 2 RECOMMENDATION: Routine screening mammogram of both breasts in 1 year.
== END | disposition home or self-care (01) ==
LOC: RADMAMWWP 13:04
PROVIDERS: ATTEND Family Medicine
DX: Z12.31 Encounter for screening mammogram for malignant neoplasm of breast (principal)
CPT/HCPCS: 77063; 77067

== ENCOUNTER → 2019-02-13 | Outpatient (CLI) | payer MEDICARE ==
--- NOTE | 2019-02-14 11:58 | CT ---
EXAMINATION TYPE: CT sinus wo con DATE OF EXAM: 02/13/2019 COMPARISON: CT sinuses December 24, 2014 HISTORY: Chronic sinusitis per order. Left greater than right facial pain. CT DLP: 572 mGycm. Automated Exposure Control for Dose Reduction was Utilized. TECHNIQUE: CT scan of the sinuses is performed without contrast, axial images are obtained, coronal r eformatted images are also reviewed. FINDINGS: The paranasal sinuses including the frontal, ethmoid, sphenoid, and maxillary sinuses bila terally are well-aerated without abnormal opacification. The ostiomeatal complex is patent bilateral ly on the coronal images. Visualized portion of mastoid air cells show no abnormal opacification. Left lens now not well visual ized suggesting interval cataract surgery. Visualized portion of brain parenchyma shows diffuse cereb ral atrophy. IMPRESSION: The sinuses remain clear and the ostiomeatal complex remains patent bilaterally.
== END | disposition home or self-care (01) ==
LOC: RADCTMAIN 13:21
PROVIDERS: ATTEND Otolaryngology
DX: J32.9 Chronic sinusitis, unspecified (principal)
CPT/HCPCS: 70486

== ENCOUNTER → 2019-03-14 | Outpatient (CLI) | payer MEDICARE ==
--- NOTE | 2019-03-14 14:01 | SFUN ---
SLEEP CENTER FOLLOW UP NOTE DATE OF SERVICE: 03/14/2019 A 78-year-old lady who has been followed in the Sleep Center for treatment of obstructive sleep apnea-hypopnea syndrome to discuss results of her sleep study. I discussed results of diagnostic polysomnogram with patient in detail. She did not sleep very well that night, only 2-1/2 hours, but at the same time, she had extremely significant abnormalities of respiration, apnea-hypopnea index high in severe range of 57.6 times per hour with oxygen desaturation to 66.3%. Oxygen level was below normal for the whole night for 33.3 minutes. [place] Sleepiness Scale today is 7. MEDICATIONS: Cozaar, Aldactazide, Zantac, Protonix, Wellbutrin, Claritin, atenolol, Xanax, vitamin D supplement, Cymbalta. PHYSICAL EXAM: Patient in no distress, BP 141/58, HR 74, RR 18, height 5, 1, weight 198.6. BMI 37.4, temperature 98.3, oxygen saturation at room air 92%. OROPHARYNX: Extremely low position of soft palate, Mallampati 4. ABDOMEN: Slightly diabetes. Wound on left ankle after surgical treatment of skin cancer for treatment of squamous cell carcinoma. IMPRESSION: 1. Obstructive sleep apnea-hypopnea syndrome. 2. Obesity. 3. History of hypertension. 4. History of congestive heart failure. 5. History of depression. 6. History of anxiety. 7. 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 8. Status post total right knee replacement. 9. Status post total right hip replacement. 10.Status post left shoulder surgery. PLAN: 1. CPAP if necessary, BiPAP titration for correction of respiratory abnormalities during sleep. 2. Sleep hygiene with regular time in bed for 7-1/2 - 8 hours. 3. No driving if feeling sleepiness. 4. Following plan after reviewing results of titration. Thank you very much for allowing me to participate in management of your patient. Sincerely, Janak Washington MD, PhD, FAASM Diplomat of [employer] Sales Special Agent of [facility] [place] MMODL / TIAN: [id number] /
== END ==
LOC: SLEEP 10:41
PROVIDERS: ATTEND Internal Medicine
DX: G47.33 Obstructive sleep apnea (adult) (pediatric) (principal); E66.9 Obesity, unspecified; I10 Essential (primary) hypertension; I50.9 Heart failure, unspecified; F32.9 Major depressive disorder, single episode, unspecified; F41.9 Anxiety disorder, unspecified; Z98.890 Other specified postprocedural states; Z96.651 Presence of right artificial knee joint; Z96.641 Presence of right artificial hip joint; Z79.899 Other long term (current) drug therapy

== ENCOUNTER → 2019-05-22 | Outpatient (CLI) | payer MEDICARE ==
--- NOTE | 2019-05-22 14:15 | CT ---
EXAMINATION TYPE: CT angio chest DATE OF EXAM: 05/22/2019 COMPARISON: Prior CT 11/29/2018 HISTORY: SOB, painful respiration CT DLP: 444.7 mGycm Automated exposure control for dose reduction was used. CONTRAST: CTA scan of the thorax is performed with IV Contrast, patient injected with 73 mL of Isovue 370, pulm onary embolism protocol. MIP images are created and reviewed. 3D reconstructed images are created o n an independent workstation and reviewed. FINDINGS: There is a hiatal hernia. Reflux of the contrast material into the inferior vena cava and h epatic veins is noted. Left jugular wall appears thickened. LUNGS: The lungs are grossly clear, there is no concerning parenchymal mass or nodule identified. T here is no pleural effusion or pneumothorax seen. The tracheobronchial tree is patent. AORTA: No additional significant abnormality is seen. There is no aneurysm. Metallic density present at the root of the aorta. There are coronary artery calcifications present MEDIASTINUM: There is satisfactory enhancement of the pulmonary artery and its branches, there is no CT evidence for pulmonary embolism. There are no greater than 1 cm hilar or mediastinal lymph nodes. No pericardial effusion is seen. Dense mitral annular calcifications are present. Pulmonary artery is prominent. OTHER: Low dense focus associated with the lateral segment of the left lobe of liver measuring 17 mm and likely represents hepatic cyst. IMPRESSION: NO EVIDENT PULMONARY EMBOLISM. CORRELATE FOR POSSIBLE LEFT VENTRICULAR HYPERTROPHY, SUBVALVULAR HYPER TROPHIC OBSTRUCTIVE CARDIOMYOPATHY, CONSIDER ECHOCARDIOGRAPHY. Possible pulmonary artery hypertension . Coronary artery disease and additional findings above
== END ==
LOC: RADCTMAIN 12:42
PROVIDERS: ATTEND Family Medicine
DX: I25.10 Atherosclerotic heart disease of native coronary artery without angina pectoris (principal); I70.8 Atherosclerosis of other arteries
CPT/HCPCS: 82565; 84520; 71275; 36415; Q9967

== ENCOUNTER → 2019-06-20 | Outpatient (CLI) | payer MEDICARE ==
--- NOTE | 2019-06-20 11:16 | SFUN ---
SLEEP CENTER FOLLOW UP NOTE DATE OF SERVICE: 06/20/2019 This 78-year-old lady had been followed in Sleep Center for treatment of obstructive sleep apnea-hypopnea syndrome. Recently patient received her CPAP unit and today is the first visit after she started to use CPAP equipment. Previously, she had a sleep study which showed severe sleep apnea and on CPAP, respiration was controlled. She is sleeping better with the machine. She feels better during the day only for the last 2 weeks she had problems with her sinuses and she was not able to use machine. Otherwise, she was able to use machine for the previous 2 months about. [place] Sleepiness Scale today is a 5, which is normal. I checked her CPAP unit. CPAP pressure is 9 cm of water. The patient used it 47 out 57 nights and 41 out of 57 nights for more than 4 hours with average usage 5.9 hours per night. Leak is 31 L/minute, which is slightly high for the nasal mask. Apnea- hypopnea index only 0.5, which is absolutely perfect. MEDICATIONS: Cozaar, Zantac, Protonix, Wellbutrin, Motrin, Claritin, atenolol, Aldactazide, Cymbalta, Lasix, Thomas on p.r.n. basis, Xanax. PHYSICAL EXAMINATION: During physical exam, patient is in no distress. VITAL SIGNS: BP 136/66, HR 85, RR 15, weight 197.6, temperature 98.6, oxygen saturation at room air 93%. HEENT: PERRLA, EOMI. Oropharynx extremely low position of soft palate. Mallampati 4. NECK: Supple, no JVD. Thyroid is not palpable. LUNGS: Clear to percussion and to auscultation. Good air exchange. No wheezing or rhonchi. HEART: Loud systolic murmur on aorta. ABDOMEN: Soft and nontender. Bowel sounds are present. No organomegaly appreciated. EXTREMITIES: No clubbing or cyanosis. COOKER MEAL: Awake, alert, and oriented X3. Cranial nerves 2 to 7 intact. There is no fasciculation or atrophy. noted. No focal deficits observed. IMPRESSION: 1. Obstructive sleep apnea-hypopnea syndrome. Patient demonstrated good compliance with treatment benefitting from treatment. 2. Obesity. 3. Hypertension. 4. History of congestive heart failure. 5. History of depression. 6. History of anxiety. 7. Allergies. 8. Acid reflux. 9. Status post total right knee replacement. 10.Status post a total right hip replacement. 11.Status post left shoulder surgery. PLAN: 1. Patient will continue to use CPAP equipment every night for the whole night. 2. Watching weight. 3. Sleep hygiene with regular time in bed for at least 7-1/2 to 8 hours. 4. No driving if feeling sleepiness. 5. Prescription for chin strap. Thank you very much for allowing me to participate in management of your patient. Sincerely, Janak Washington MD, PhD, FAASM Diplomat of [employer] [employer] Infrastructure Tech of [facility] [place] MMODL / IJN: [id number] /
== END | disposition home or self-care (01) ==
LOC: SLEEP 10:13
PROVIDERS: ATTEND Internal Medicine
DX: G47.33 Obstructive sleep apnea (adult) (pediatric) (principal); E66.9 Obesity, unspecified; I10 Essential (primary) hypertension; K21.9 Gastro-esophageal reflux disease without esophagitis; Z86.79 Personal history of other diseases of the circulatory system; Z86.59 Personal history of other mental and behavioral disorders; Z96.651 Presence of right artificial knee joint; Z96.641 Presence of right artificial hip joint; Z96.612 Presence of left artificial shoulder joint; Z79.891 Long term (current) use of opiate analgesic; Z79.899 Other long term (current) drug therapy; T78.40XA Allergy, unspecified, initial encounter

== ENCOUNTER 2019-11-05 15:11 | Observation (INO) | payer MEDICARE ==
[2019-11-05] MEDS ORDERED: ASPIRIN 81 MG PO STA (16:07)
[2019-11-05] MEDS ORDERED: HEPARIN SODIUM,PORCINE 5,000 UNIT/ML 1 ML VIAL IV PRN (16:28)
[2019-11-05] MEDS ORDERED: HEPARIN SODIUM,PORCINE 5,000 UNIT/ML 1 ML VIAL IV ONE (16:28)
[2019-11-05] MEDS ORDERED: HEPARIN SOD,PORK IN 0.45% NACL 25,000 UNIT in 0.45% NACL 1 250ML.BAG IV SCH (16:30)
[2019-11-05 16:33] LABS: Basophils # (A) 0.1 k/uL (0-0.2); Basophils % (A) 1 %; Eosinophils # (A) 0.6 k/uL (0-0.7); Eosinophils % (A) 4 %; HCT 35.9 % (34.0-46.0); HGB 11.6 gm/dL (11.4-16.0); Hypochromasia Slight; Lymphocytes # (A) 1.6 k/uL (1.0-4.8); Lymphocytes % (A) 11 %; MCH 28.4 pg (25.0-35.0); MCHC 32.4 g/dL (31.0-37.0); MCV 87.5 fL (80.0-100.0); Mean Platelet Volume 7.4; Monocytes # (A) 0.5 k/uL (0-1.0); Monocytes % (A) 4 %; Neutrophils # (A) 11.1 k/uL (1.3-7.7); Neutrophils % (A) 79 %; Platelet Count 343 k/uL (150-450); RDW 14.6 % (11.5-15.5)
[2019-11-05] MEDS ORDERED: NALOXONE 0.4 MG/ML 1 ML VIAL IV PRN (16:36)
--- NOTE | 2019-11-05 16:36 | ED ---
General Adult HPI - General Chief complaint: Chest Pain Stated complaint: Abnormal EKG Time Seen by Provider: 11/05/19 15:52 Source: patient, family Mode of arrival: wheelchair Limitations: no limitations - History of Present Illness Initial comments: Dictation was produced using tidy dictation software. please excuse any grammatical, word or spelling errors. This patient was cared for during a federal and state declared state of emergency secondary to Covid 19 Chief Complaint: 79-year-old female sent in by primary care physician for abnormal EKG. History of Present Illness: 79 y old female she has been having increasing chest pain for the last 5 days. Patient was at her primary care physician's office today for routine checkup and sinus symptoms. She did not mention to her PCP that she's been having chest symptoms. Patient has a history of coronary artery disease.. She reports that she's had a cardiac cath showing 50% blockage of one of her coronary arteries that has been managed medically. She recently had her cook helper dessert retired so she has not seen her cook helper dessert. Patient states she gets substernal chest pressure randomly over the last 5 days. She is currently asymptomatic. At her primary care physician's office she had an EKG performed and there was found to be some changes. She was redirected to the emergency room for further evaluation. Patient reports that she gets substernal chest pain that has been intermittent. She denies any radiation to the jaw or shoulders. No associated diaphoresis. Patient has history of COPD, dyslipidemia hypertension. The ROS documented in this emergency department record has been reviewed and confirmed by me. Those systems with pertinent positive or negative responses have been documented in the HPI. All other systems are other negative and/or noncontributory. PHYSICAL EXAM: General Impression: Alert and oriented x3, not in acute distress HEENT: Normocephalic atraumatic, extra-ocular movements intact, pupils equal and reactive to light bilaterally, mucous membranes moist. Cardiovascular: Heart regular rate and rhythm, grade 2/6 systolic murmur Chest: Able to complete full sentences, no retractions, no tachypnea Abdomen: abdomen soft, non-tender, non-distended, no organomegaly Musculoskeletal: Pulses present and equal in all extremities, no peripheral edema Motor: no focal deficits noted Neurological: CN II-XII grossly intact, no focal motor or sensory deficits noted Skin: Intact with no visualized rashes Psych: Normal affect and mood ED course: 79-year-old female presents with abnormal EKG and progressively increasing chest symptoms with the last 5 days. Signs upon arrival are within acceptable limits. Patient's well-appearing at bedside. She works being asymptomatic. Last episode of chest pain was early this morning. EKG from PCPs office was reviewed showing ST elevations in anterior precordial leads with Q waves.. This appears appears to be chronic when compared to EKG from November 2017. Of note there is new T-wave inversions in the high lateral leads. EKG was performed here in emergency department demonstrating those findings however the STs appear to be significantly elevated with T-wave inversions in the high lateral leads. Posterior EKG was performed showing T-wave inversions. Case is discussed with Dr. Heredia. This point considering patient's comorbidities and history of progressive chest pain with patient treatment to the cardiac cathode ray tube salvage processor for cardiac catheterization and possible intervention. Case is discussed with Dr. Dr. Heredia who is agreeable with cathode ray tube salvage processor activation. Patient is given aspirin and heparin. Patient be admitted and disposition to cardiac cathode ray tube salvage processor. EKG interpretation: Ventricular rate 64, normal sinus rhythm,. Interval 160, QRS 86, QTC 478, ST elevation seen in V1, V2 and V3. With T-wave inversions in 1 and aVL.. No DC prolongation, no QTC prolongation, no ST or T-wave changes noted. Overall this EKG is concerning for ischemia. - Related Data Home Medications Medication Instructions Recorded Confirmed Escitalopram Oxalate [Lexapro] 20 mg PO DAILY 12/08/14 11/13/17 Spironolactone-Hctz 25-25Mg 1 tab PO DAILY 12/08/14 11/13/17 [Aldactazide 25-25 MG] Donepezil HCl [Aricept] 5 mg PO DAILY 04/12/17 11/13/17 Albuterol Nebulized [Ventolin 2.5 mg INHALATION RT-QID PRN 04/24/17 11/13/17 Nebulized] buPROPion XL [Wellbutrin XL] 300 mg PO DAILY 04/24/17 11/13/17 ALPRAZolam [Xanax] 0.25 mg PO BID PRN 11/13/17 11/13/17 Clindamycin HCl 600 mg PO ONCE PRN 11/13/17 11/13/17 Gabapentin [Neurontin] 300 mg PO TID 11/13/17 11/13/17 HYDROcodone/APAP 10-325MG [Hye 1 tab PO Q4HR PRN 11/13/17 11/13/17 10-325] Loratadine [Claritin] 10 mg PO DAILY 11/13/17 11/13/17 Ranitidine HCl [Zantac] 300 mg PO BID 11/13/17 11/13/17 Previous Rx's Medication Instructions Recorded Furosemide [Lasix] 20 mg PO BID@0900,1600 #60 tab 11/17/17 Levofloxacin [Levaquin] 250 mg PO DAILY 3 Days #3 tab 11/17/17 Losartan [Cozaar] 25 mg PO DAILY tab 11/17/17 atenoloL [Atenolol] 25 mg PO DAILY #30 tablet 11/17/17 Allergies Allergy/AdvReac Type Severity Reaction Status Date / Time celecoxib [From Celebrex] Allergy Rash/Hives Verified 11/05/19 15:51 cephalexin monohydrate Allergy Rash/Hives Verified 11/05/19 15:51 [From Keflex] Penicillins Allergy Rash/Hives Verified 11/05/19 15:51 Sulfa (Sulfonamide Allergy Rash/Hives Verified 11/05/19 15:51 Antibiotics) Tuvxezf-Khc-Iar Reductase AdvReac MUSCLE PAIN Verified 11/05/19 15:51 Inhibitor Review of Systems ROS Statement: Those systems with pertinent positive or pertinent negative responses have been documented in the HPI. ROS Other: All systems not noted in ROS Statement are negative. Past Medical History Past Medical History: Cancer, COPD, GERD/Reflux, Hyperlipidemia, Hypertension, Osteoarthritis (OA) Additional Past Medical History / Comment(s): HIATAL HERNIA, HX SKIN CANCER , HEART MURMUR, BACK & HIP PAIN- USES CANE PRN. History of Any Multi-Drug Resistant Organisms: None Reported Past Surgical History: Bariatric Surgery, Bladder Surgery, Heart Catheterization, Joint Replacement, Orthopedic Surgery, Tonsillectomy Additional Past Surgical History / Comment(s): left shoulder surgery, rt knee replacement, bladder suspension, LAP BAND INSERTED AND REMOVED AFTER 1 YEAR., HEART CATH([facility]-2009?) TRH, right hip replacement Past Anesthesia/Blood Transfusion Reactions: No Reported Reaction, Motion Sickness Past Psychological History: Anxiety, Depression Smoking Status: Never smoker Past Alcohol Use History: None Reported, Occasional Past Drug Use History: None Reported - Past Family History Father Family Medical History: Congestive Heart Failure (CHF), CVA/TIA Additional Family Medical History / Comment(s): CABG Mother Family Medical History: No Reported History General Exam Limitations: no limitations Course Vital Signs 11/05/19 15:49 Temperature 98.2 F Pulse Rate 65 Respiratory 20 Rate Blood Pressure 118/59 O2 Sat by Pulse 98 Oximetry Disposition Clinical Impression: STEMI (ST elevation myocardial infarction) Disposition: ADMITTED IP TO THIS HOSP Condition: Critical Referrals: Ngoc Schwarz MD [Primary Care Provider] - 1-2 days Decision Time: 16:36
[2019-11-05] MEDS ORDERED: SODIUM CHLORIDE 0.9% 1,000 ML IV SCH (16:45)
[2019-11-05 16:50] LABS: Albumin 4.3 g/dL (3.5-5.0); Calcium 10.5 mg/dL (8.4-10.2); Magnesium 1.9 mg/dL (1.6-2.3); Potassium 3.9 mmol/L (3.5-5.1); Total Bilirubin 0.5 mg/dL (0.2-1.3); Total Protein 7.3 g/dL (6.3-8.2)
[2019-11-05 16:59] LABS: Partial Thromboplastin Time 24.7 sec (22.0-30.0); Prothrombin Time 10.1 sec (9.0-12.0)
[2019-11-05] MEDS ORDERED: LIDOCAINE 1% INJ 10MG/ML (20 ML MDV) ONE (16:59)
[2019-11-05] MEDS ORDERED: fentaNYL (PF) 50 MCG/ML 2 ML AMP ONE (17:10)
[2019-11-05] MEDS ORDERED: LIDOCAINE 1% INJ 10MG/ML (20 ML MDV) SQ ONE (17:11)
[2019-11-05] MEDS ORDERED: MIDAZOLAM 2 MG/2 ML VIAL IV ONE (17:14)
[2019-11-05] MEDS ORDERED: fentaNYL (PF) 50 MCG/ML 2 ML AMP IV ONE (17:15)
[2019-11-05] MEDS ORDERED: IV FLUID CONTINUATION 300 ML IV ONE (17:15)
[2019-11-05] MEDS ORDERED: IOPAMIDOL-370 100ML BTL INJ ONE (17:26)
[2019-11-05] MEDS ORDERED: SODIUM CHLORIDE 0.9% 1,000 ML IV ONE (17:26)
[2019-11-05] MEDS ORDERED: RX INFO: IV CONTRAST WAS GIVEN 1 EACH MISC MISCELLANE PRN (17:40)
[2019-11-05 18:00] LABS: Glucose,Whole Blood 103 mg/dL (75-99)
--- NOTE | 2019-11-05 18:38 | CC ---
CARDIAC CATHETERIZATION REPORT INDICATION: Acute coronary syndrome. This is a 79-year-old lady with history of hypertension who presented to [facility] Emergency Room because of an abnormal EKG. She had vague intermittent episodes of chest pain. The patient initially presented to her primary care physician's office with symptoms of stuffed nose. The ER doctor who evaluated the patient felt that the patient was having STEMI with ST-segment elevation in the precordial leads. Due to that, STEMI team was activated and I was called in. 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 She was not having any significant chest pain. The EKG did show ST elevation, but that could very well be from left ventricular hypertrophy. The patient was explained the rationale for cardiac catheterization, risks, benefits, alternatives. She understood and decided to proceed with the procedure. PROCEDURE NOTE: After obtaining informed consent, left heart catheterization and coronary angiogram were performed via the right femoral artery using standard Marcie catheters. The patient tolerated the procedure well without any obvious immediate complications. A femoral angiogram was performed and Angio-Seal will be deployed for hemostasis. FINDINGS: 1. Left ventricular end-diastolic pressure is 20 mm. We could not accurately calculate the gradient across the aortic valve because of ectopy. 2. ANGIOGRAPHIC DATA: Left main coronary artery is a normal-sized vessel and is free of stenosis. It divides into left anterior descending coronary artery and circumflex. Dictation ends here. see my dictation MMODL / IJN: [id number] / MTDD
--- NOTE | 2019-11-05 18:42 | CC ---
CARDIAC CATHETERIZATION REPORT INDICATION: Acute coronary syndrome. This 79-year-old lady was sent to the hospital from the primary care physician's office with intermittent episodes of chest pain and an abnormal EKG. ER physician felt that the patient was having a STEMI and activated the STEMI team. I am seeing the patient for the first time in the cath lab tech. She does not seem to be in significant chest pain and the EKG changes could either be due to anterior wall myocardial infarction or could simply represent left ventricular hypertrophy. I discussed the rationale for the cardiac catheterization, risks and benefits, including the risk of contrast-induced nephropathy. I did not have the labs at this time. Understanding all the issues, she wished to proceed with it. PROCEDURE NOTE: After obtaining informed consent, left heart catheterization and coronary angiogram were performed via the right femoral artery using standard Marcie catheters. The patient tolerated the procedure well without any obvious immediate complications. A femoral angiogram was performed and Angio-Seal will be deployed for hemostasis. FINDINGS: 1. HEMODYNAMICS: Left ventricular end-diastolic pressure is 20 mm. The gradient across the aortic valve has not been well estimated secondary to cardiac arrhythmia. 2. LEFT VENTRICULOGRAM: Left ventriculogram was not performed. 3. ANGIOGRAPHIC DATA. The left main coronary artery appears calcified but is free of significant stenosis. It divides into left anterior descending coronary artery and circumflex coronary artery. Both the vessels are calcified. There is mild to moderate atherosclerotic plaque in the proximal part and a bridging noted in the mid to distal LAD, but no significant focal stenosis. Circumflex coronary artery is a codominant vessel and is free of significant stenosis. Right coronary artery is a large codominant system and is free of significant stenosis. CONCLUSION: Mild nonobstructive coronary artery disease involving LAD. PLAN: Patient's EKG is secondary to left ventricular hypertrophy. Will admit the patient, obtain a 2D echo in the morning to rule out aortic stenosis, and hopefully we can discharge her home later tomorrow afternoon. MMODL / IJN: [id number] /
--- NOTE | 2019-11-05 18:53 | CONS ---
CONSULTATION CHIEF COMPLAINT: Abnormal EKG. This is a 79-year-old lady with history of mild coronary artery disease, hypertension and COPD who presented to the emergency room at [facility] with abnormal EKG and was brought into the cardiac catheterization lab as a STEMI patient. At the time of my evaluation, she is pain-free and hemodynamically stable. EKG showed ST-segment elevation in the precordial leads, which could either be due to myocardial infarction or due to left ventricular hypertrophy, and the patient decided to undergo cardiac catheterization. She has been explained the risks, benefits and alternatives, understood and accepted. PAST MEDICAL HISTORY: Significant for hypertension, COPD. MEDICATIONS: Medications include Wellbutrin, atenolol, aldactazide, Zantac, Cozaar, Claritin, Levaquin, Neurontin, Lasix, Lexapro, Aricept, clindamycin, albuterol. ALLERGIES: PENICILLIN, SULFA, STATINS AND CELEBREX. FAMILY HISTORY: Negative for premature coronary artery disease. SOCIAL HISTORY: Negative for smoking, EtOH abuse or drug abuse. REVIEW OF SYSTEMS: HEENT: Significant for fullness in her head. CARDIAC: Atypical chest pain. RESPIRATORY: Negative. GI: Negative. GENITOURINARY: Negative. ALLERGY: Negative. IMMUNOLOGY: Negative. SKIN: Negative. MUSCULOSKELETAL: Significant for arthritis. PSYCHOSOCIAL: Negative. DERMATOLOGY: Negative. CONSTITUTIONAL: Negative. ONCOLOGICAL: Negative. Rest of the system review is not relevant. PHYSICAL EXAMINATION: Heart rate is 62 beats per minute. Blood pressure is 141/60, respiratory rate is 18. Chest exam reveals fair air entry bilaterally. Heart exam reveals first and second heart sounds. Ejection systolic murmur in the aortic area. Abdomen is soft. Examination of extremities did not reveal edema. Peripheral pulses are felt. LABS: Labs show that the hemoglobin is 11.6, platelet count is 340. Potassium is 3.9, creatinine is 1.5. ASSESSMENT: Acute coronary syndrome. Aortic stenosis PLAN: Patient will undergo emergent cardiac catheterization and will decide on further course of action based on the test findings. MMODL / IJN: [id number] / MTDD
[2019-11-05] MEDS ORDERED: ACETAMINOPHEN TAB 325 MG TAB PO PRN (21:19)
[2019-11-06 04:07] LABS: Basophils # (A) 0.1 k/uL (0-0.2); Basophils % (A) 1 %; Eosinophils # (A) 0.7 k/uL (0-0.7); Eosinophils % (A) 6 %; HCT 32.6 % (34.0-46.0); HGB 10.1 gm/dL (11.4-16.0); Lymphocytes # (A) 1.7 k/uL (1.0-4.8); Lymphocytes % (A) 15 %; MCH 27.2 pg (25.0-35.0); MCHC 31.2 g/dL (31.0-37.0); MCV 87.3 fL (80.0-100.0); Mean Platelet Volume 7.3; Monocytes # (A) 0.7 k/uL (0-1.0); Monocytes % (A) 6 %; Neutrophils # (A) 8.3 k/uL (1.3-7.7); Neutrophils % (A) 71 %; Platelet Count 276 k/uL (150-450); RBC 3.73 m/uL (3.80-5.40); RDW 14.8 % (11.5-15.5); WBC 11.7 k/uL (3.8-10.6)
[2019-11-06 04:20] LABS: Calcium 9.8 mg/dL (8.4-10.2)
[2019-11-06] MEDS: SODIUM CHLORIDE 0.9% 1,000 ML IV SCH (09:24)
--- NOTE | 2019-11-06 09:33 | ECHOF ---
Referral Reason: MEASUREMENTS -------- HEIGHT: 157.5 cm WEIGHT: 90.3 kg BP: 134/55 RVIDd: 2.3 cm (< 3.3) IVSd: 2.5 cm (0.6 - 1.1) LVIDd: 2.2 cm (3.9 - 5.3) LVPWd: 2.6 cm (0.6 - 1.1) IVSs: 2.8 cm LVIDs: 1.5 cm LVPWs: 2.7 cm LAESV Index (A-L): 48.45 ml/m Ao Diam: 2.6 cm (2.0 - 3.7) AV Cusp: 0.9 cm (1.5 - 2.6) LA Diam: 3.9 cm (2.7 - 3.8) MV EXCURSION: 11.106 mm (> 18.000) MV EF SLOPE: 28 mm/s (70 - 150) EPSS: 1.1 cm MV E Alexsander: 1.30 m/s MV DecT: 402 ms MV A Alexsander: 2.01 m/s MV E/A Ratio: 0.65 AV maxP.24 mmHg AV meanP.98 mmHg AR PHT: 170 ms RAP: 5.00 mmHg RVSP: 60.21 mmHg FINDINGS -------- Sinus rhythm. This was a technically good study. The left ventricular size is normal. There is severe concentric left ventricular hypertrophy. Ove rall left ventricular systolic function is normal with, an EF between 55 - 60 %. Increased LAP Grad e 3 Diastolic Dysfunction. The right ventricle is normal in size. LA is severely dilated >40 ml/m2 The right atrial size is normal. Interatrial and interventricular septum intact. Aortic valve is trileaflet and is severely thickened. There is severe aortic stenosis present. Pe ak/mean gradient across the Aortic Valve is 86.24mmHg / 53.98mmHg. The mitral valve is normal. The mitral valve leaflets are moderately thickened. Moderate mitral a nnular calcification present. [id number] mitral regurgitation is present. The peak and per n MV gradients are 15.91mmHg 8.20mmHg as measured by doppler. Moderate mitral stenosis. Mild tricuspid regurgitation present. There is moderate pulmonary hypertension. The right ventric ular systolic pressure, as measured by Doppler, is 60.21mmHg. There is no pulmonic regurgitation present. The aortic root size is normal. Normal inferior vena cava with normal inspiratory collapse consistent with estimated right atrial pre ssure of 5 mmHg. There is no pericardial effusion. CONCLUSIONS -------- 1. There is severe concentric left ventricular hypertrophy. 2. Overall left ventricular systolic function is normal with, an EF between 55 - 60 %. 3. Increased LAP Grade 3 Diastolic Dysfunction. 4. LA is severely dilated >40 ml/m2 5. Aortic valve is trileaflet and is severely thickened. 6. There is severe aortic stenosis present. 7. Peak/mean gradient across the Aortic Valve is 86.24mmHg / 53.98mmHg. 8. The mitral valve leaflets are moderately thickened. 9. Moderate mitral annular calcification present. 10. Avre-nv-nypmwfhi mitral regurgitation is present. 11. The peak and mean MV gradients are 15.91mmHg 8.20mmHg as measured by doppler. 12. Moderate mitral stenosis. 13. Mild tricuspid regurgitation present. 14. There is moderate pulmonary hypertension. 15. The right ventricular systolic pressure, as measured by Doppler, is 60.21mmHg. INFANTRY UNIT LEADER: Kristin Bronson [facility]
[2019-11-06] MEDS ORDERED: IBUPROFEN 600 MG TAB PO PRN (09:37)
[2019-11-06] MEDS ORDERED: FLUTICASONE 50MCG/SPRAY NASAL 16GM EA NOSTRIL PRN (09:37)
[2019-11-06] MEDS ORDERED: HYDROcodone/APAP 7.5-325MG 1 EACH TAB PO PRN (09:37)
[2019-11-06] MEDS ORDERED: LOSARTAN 25 MG TAB PO SCH (09:45)
[2019-11-06] MEDS ORDERED: DONEPEZIL 5 MG TAB PO SCH (09:45)
[2019-11-06] MEDS ORDERED: FUROSEMIDE 20 MG TAB PO SCH (09:45)
[2019-11-06] MEDS ORDERED: DULoxetine HCL 30 MG CAPSULE.DR PO SCH (09:45)
[2019-11-06] MEDS ORDERED: SPIRONOLACTONE-HCTZ 25-25MG 1 EACH TAB PO SCH (09:45)
[2019-11-06] MEDS ORDERED: atenoloL 25 MG TAB PO SCH (09:45)
[2019-11-06] MEDS ORDERED: buPROPion XL 300 MG TAB.ER.24H PO SCH (09:45)
[2019-11-06 11:49] LABS: Glucose,Whole Blood 87 mg/dL (75-99)
--- NOTE | 2019-11-06 12:53 | P.HPIM ---
History of Present Illness H&P Date: 11/06/19 Valerie Paniagua, he is a 79-year-old female who presented to [facility] emergency room with a chief complaint of chest pain, patient was initially evaluated by her primary care physician Dr. Schwarz, and was sent to emergency room, patient was evaluated in emergency room, first troponin was slightly elevated at 0.[address] and T-wave abnormality in the lateral leads, patient was taken directly to the manager labor relations for cardiac catheterization. Patient has a known history of hypertension, hyperlipidemia, asthma, mild dementia, and obstructive sleep apnea she denies any previous history of cardiac disease. On review of systems she is alert and oriented 3 there is no fever or chills no headache or dizziness no chest pain no shortness of breath no cough no nausea or vomiting no abdominal pain no diarrhea no burning with urination no frequency or urgency and no hematuria. Past Medical History Past Medical History: Coronary Artery Disease (CAD), Cancer, Chest Pain / Angina, COPD, GERD/Reflux, Hyperlipidemia, Hypertension, Osteoarthritis (OA) Additional Past Medical History / Comment(s): HIATAL HERNIA, HX SKIN CANCER , HEART MURMUR, BACK & HIP PAIN- USES CANE PRN. History of Any Multi-Drug Resistant Organisms: None Reported Past Surgical History: Bariatric Surgery, Bladder Surgery, Heart Catheterization, Joint Replacement, Orthopedic Surgery, Tonsillectomy Additional Past Surgical History / Comment(s): left shoulder surgery, rt knee replacement, bladder suspension, LAP BAND INSERTED AND REMOVED AFTER 1 YEAR., HEART CATH([facility]-2009?) TRH, right hip replacement Past Anesthesia/Blood Transfusion Reactions: No Reported Reaction, Motion Sickness Past Psychological History: Anxiety, Depression Smoking Status: Former smoker Past Alcohol Use History: None Reported, Occasional Additional Past Alcohol Use History / Comment(s): SMOKED AGE 18 - 35 YRS OLD., SMOKED 8 CIGARETTES / DAY. Patient states she has an occasional social drink. Past Drug Use History: None Reported - Past Family History Father Family Medical History: Congestive Heart Failure (CHF), CVA/TIA Additional Family Medical History / Comment(s): CABG Mother Family Medical History: No Reported History Medications and Allergies Home Medications Medication Instructions Recorded Confirmed Type Spironolactone-Hctz 25-25Mg 1 tab PO DAILY 12/08/14 11/05/19 History [Aldactazide 25-25 MG] Donepezil HCl [Aricept] 5 mg PO DAILY 04/12/17 11/05/19 History buPROPion XL [Wellbutrin XL] 300 mg PO DAILY 04/24/17 11/05/19 History Losartan [Cozaar] 25 mg PO DAILY tab 11/17/17 11/05/19 Rx atenoloL [Atenolol] 25 mg PO DAILY #30 tablet 11/17/17 11/05/19 Rx DULoxetine HCL [Cymbalta] 30 mg PO DAILY 11/05/19 11/05/19 History Fluticasone Nasal [place] [Flonase 1 spray EA NOSTRIL DAILY PRN 11/05/19 11/05/19 History Nasal [place]] Furosemide [Lasix] 20 mg PO BID 11/05/19 11/05/19 History HYDROcodone/APAP 7.5-325MG [[place] 1 tab PO TID PRN 11/05/19 11/05/19 History 7.5-325] Ibuprofen [Motrin] 600 mg PO QID PRN 11/05/19 11/05/19 History Montelukast Sodium [Singulair] 10 mg PO HS 11/05/19 11/05/19 History Clindamycin [Cleocin] 150 mg PO QID cap 11/06/19 Rx Allergies Allergy/AdvReac Type Severity Reaction Status Date / Time celecoxib [From Celebrex] Allergy Rash/Hives Verified 11/05/19 17:39 cephalexin monohydrate Allergy Rash/Hives Verified 11/05/19 17:39 [From Keflex] Penicillins Allergy Rash/Hives Verified 11/05/19 17:39 Sulfa (Sulfonamide Allergy Rash/Hives Verified 11/05/19 17:39 Antibiotics) Gnqdjuf-Lif-Bbx Reductase AdvReac MUSCLE PAIN Verified 11/05/19 17:39 Inhibitor Physical Exam Vitals: Vital Signs Temp Pulse Pulse Resp BP Pulse Ox 11/06/19 04:00 98.2 F 65 22 134/55 96 11/06/19 03:40 61 24 97 11/06/19 03:30 61 26 H 97 11/06/19 03:20 64 26 H 95 11/06/19 03:10 63 22 96 11/06/19 03:00 61 21 97 11/06/19 02:50 61 20 97 11/06/19 02:40 61 22 96 11/06/19 02:30 63 24 98 11/06/19 02:20 62 17 97 11/06/19 02:10 66 20 96 11/06/19 02:00 62 24 97 11/06/19 01:50 62 24 97 11/06/19 01:40 62 25 H 97 11/06/19 01:30 71 20 96 11/06/19 01:20 72 27 H 97 11/06/19 01:10 71 19 144/94 98 11/06/19 01:00 73 22 95 11/06/19 00:50 68 25 H 96 11/06/19 00:40 68 22 118/57 90 L 11/06/19 00:30 77 26 H 97 11/06/19 00:20 66 23 94 L 11/06/19 00:10 68 26 H 132/53 93 L 11/06/19 00:00 98 F 74 18 93 L 11/05/19 23:50 74 15 88 L 11/05/19 23:40 70 23 148/74 92 L 11/05/19 23:30 66 15 91 L 11/05/19 23:20 68 20 89 L 11/05/19 23:10 66 22 90 L 11/05/19 23:00 78 22 91 L 11/05/19 22:50 70 24 91 L 11/05/19 22:40 70 23 158/71 93 L 11/05/19 22:30 68 23 94 L 11/05/19 22:20 81 16 93 L 11/05/19 22:10 71 24 156/63 95 11/05/19 22:00 73 22 149/53 94 L 11/05/19 21:50 78 25 H 90 L 11/05/19 21:40 69 24 94 L 11/05/19 21:30 71 27 H 90 L 11/05/19 21:20 69 25 H 90 L 11/05/19 21:10 66 35 H 154/59 94 L 11/05/19 21:00 68 22 94 L 11/05/19 20:50 67 19 158/61 94 L 11/05/19 20:40 74 18 86 L 11/05/19 20:30 94 L 11/05/19 20:20 63 18 93 L 11/05/19 20:10 67 20 160/67 94 L 07/28/20 20:00 98.6 F 69 18 164/62 95 11/05/19 19:50 71 16 91 L 11/05/19 19:40 68 25 H 163/62 94 L 11/05/19 19:30 64 18 95 11/05/19 19:20 63 22 153/64 93 L 11/05/19 19:10 68 20 166/68 94 L 11/05/19 19:00 61 7 L 153/64 94 L 11/05/19 18:50 63 11 L 153/64 90 L 11/05/19 18:40 61 11 L 121/62 93 L 11/05/19 18:30 65 28 H 124/60 91 L 11/05/19 18:20 61 10 L 124/60 93 L 11/05/19 18:10 61 25 H 144/63 95 11/05/19 18:00 68 23 90 L 11/05/19 16:50 98.2 F 62 18 141/63 94 L 11/05/19 16:40 60 20 151/74 95 11/05/19 16:31 64 64 16 151/74 97 11/05/19 16:30 66 19 135/66 93 L 11/05/19 16:20 62 19 97 11/05/19 16:10 67 18 11/05/19 15:49 98.2 F 65 20 118/59 98 Intake and Output 11/05/19 11/06/19 11/06/19 22:59 06:59 14:59 Intake Total 375 600 Output Total 425 1150 Balance -50 -550 Intake: IV 375 600 Sodium Chloride 0.9% 1, 75 600 000 ml @ 75 mls/hr IV . [id number] [facility] Rx#:[id number] Output: Urine 425 1150 Other: Voiding Method Bedpan Bedpan # Voids 1 Weight 87.09 kg 90.7 kg In general patient is alert and oriented times HEENT head normocephalic and atraumatic Neck is supple no JVD no goiter no lymphadenopathy no carotid bruit Chest examination is clear to auscultation no crackles no wheezing Cardiac exam reveals regular heart sounds S1 and S2 no gallops no murmurs Abdomen is soft nontender no organomegaly with normal bowel sounds Extremity exam reveals no edema no cyanosis or clubbing Neurological examination reveals no gross focal deficits Results CBC & Chem 7: 11/06/19 03:56 11/06/19 03:56 Labs: Abnormal Lab Results - Last 24 Hours (Table) 11/05/19 11/05/19 11/05/19 Range/Units 16:15 16:15 17:59 WBC 14.0 H (3.8-10.6) k/uL RBC (3.80-5.40) m/uL Hgb (11.4-16.0) gm/dL Hct (34.0-46.0) % Neutrophils # 11.1 H (1.3-7.7) k/uL Sodium (137-145) mmol/L BUN 32 H (7-17) mg/dL Creatinine 1.50 H (0.52-1.04) mg/dL Glucose 107 H (74-99) mg/dL POC Glucose (mg/dL) 103 H (75-99) mg/dL Calcium 10.5 H (8.4-10.2) mg/dL 11/06/19 11/06/19 Range/Units 03:56 03:56 WBC 11.7 H (3.8-10.6) k/uL RBC 3.73 L (3.80-5.40) m/uL Hgb 10.1 L (11.4-16.0) gm/dL Hct 32.6 L (34.0-46.0) % Neutrophils # 8.3 H (1.3-7.7) k/uL Sodium 136 L (137-145) mmol/L BUN 27 H (7-17) mg/dL Creatinine (0.52-1.04) mg/dL Glucose 116 H (74-99) mg/dL POC Glucose (mg/dL) (75-99) mg/dL Calcium (8.4-10.2) mg/dL Thrombosis Risk Factor Assmnt - Choose All That Apply Any of the Below Risk Factors Present?: Yes Each Factor Represents 1 point: Abnormal pulmonary function (COPD) Other Risk Factors: No Other congenital or acquired thrombophilia - If yes, enter type in comment: No Thrombosis Risk Factor Assessment Total Risk Factor Score: 1 Thrombosis Risk Factor Assessment Level: Low Risk Assessment and Plan Plan: 1. Episode of chest pain, with slight elevation in troponin level and abnormal EKG revealing ST and T-wave changes in the lateral leads, patient was taken directly to the manager labor relations from the emergency room 2. Underlying history of hypertension 3. Underlying history of hyperlipidemia 4. Underlying history of depression 5. Underlying history of mild dementia maintained on Aricept Medications reviewed will reorder patient will be admitted to ICU after cardiac catheterization will follow closely
[2019-11-06 13:00] VITALS: BP 157/76; PULSE 68; RESP 22; TEMP 98.4
[2019-11-06] MEDS ORDERED: CLINDAMYCIN 150 MG CAP PO SCH (13:00)
--- NOTE | 2019-11-06 13:24 | P.DS ---
Providers Date of admission: 11/05/19 16:36 Expected date of discharge: 11/06/19 Attending physician: Concepcion Boyd Consults: 11/05/19 16:36 Consult Physician Routine Consulting Provider: Geo Heredia Consult Reason/Comments: abnormal ekg, stemi activation Do you want consulting provider notified?: Already Contacted Primary care physician: Ngoc Schwarz [facility] Course: Diagnosis on discharge: 1. Episode of chest pain, with slight elevation in troponin level and abnormal EKG findings, cardiac catheterization was done and revealed normal coronary arteries. 2. Underlying history of hypertension 3. Underlying history of hyperlipidemia 4. Underlying history of depression 5. Underlying history of dementia maintained on Aricept. 6. Acute sinusitis patient started on a course of [place] Hospital course: Valerie Paniagua, he is a 79-year-old female who presented to [facility] emergency room with a chief complaint of chest pain, patient was initially evaluated by her primary care physician Dr. Schwarz, and was sent to emergency room, patient was evaluated in emergency room, first troponin was slightly elevated at 0.[address] and T-wave abnormality in the lateral leads, patient was taken directly to the photographic laboratory technician for cardiac catheterization. Patient has a known history of hypertension, hyperlipidemia, asthma, mild dementia, and obstructive sleep apnea she denies any previous history of cardiac disease. On review of systems she is alert and oriented 3 there is no fever or chills no headache or dizziness no chest pain no shortness of breath no cough no nausea or vomiting no abdominal pain no diarrhea no burning with urination no frequency or urgency and no hematuria. On 11/06/2019 patient was seen and examined in the ICU, she is alert and oriented 3 in no apparent distress she denies any chest pain or shortness of breath, no new episodes of chest pain since admission, she is complaining of sinus headache and stated that she has acute sinusitis, otherwise she denies any complaints there is no fever or chills no headache or dizziness no chest pain no shortness of breath no cough no nausea or vomiting no abdominal pain no diarrhea no burning with urination no frequency or urgency and no hematuria. Shouldn't was evaluated by cardiology and was cleared for discharge. Patient Condition at Discharge: Critical Plan - Discharge Summary New Discharge Prescriptions: New Clindamycin [Cleocin] 150 mg PO QID cap Continue Spironolactone-Hctz 25-25Mg [Aldactazide 25-25 MG] 1 tab PO DAILY Donepezil HCl [Aricept] 5 mg PO DAILY buPROPion XL [Wellbutrin XL] 300 mg PO DAILY atenoloL [Atenolol] 25 mg PO DAILY #30 tablet Losartan [Cozaar] 25 mg PO DAILY tab DULoxetine HCL [Cymbalta] 30 mg PO DAILY Furosemide [Lasix] 20 mg PO BID HYDROcodone/APAP 7.5-325MG [[place] 7.5-325] 1 tab PO TID PRN PRN Reason: Pain Montelukast Sodium [Singulair] 10 mg PO HS Ibuprofen [Motrin] 600 mg PO QID PRN PRN Reason: Inflammation Fluticasone Nasal [place] [Flonase Nasal [place]] 1 spray EA NOSTRIL DAILY PRN PRN Reason: Allergy Symptoms Discharge Medication List Spironolactone-Hctz 25-25Mg [Aldactazide 25-25 MG] 1 tab PO DAILY 12/08/14 [History] Donepezil HCl [Aricept] 5 mg PO DAILY 04/12/17 [History] buPROPion XL [Wellbutrin XL] 300 mg PO DAILY 04/24/17 [History] Losartan [Cozaar] 25 mg PO DAILY tab 11/17/17 [Rx] atenoloL [Atenolol] 25 mg PO DAILY #30 tablet 11/17/17 [Rx] DULoxetine HCL [Cymbalta] 30 mg PO DAILY 11/05/19 [History] Fluticasone Nasal [place] [Flonase Nasal [place]] 1 spray EA NOSTRIL DAILY PRN [History] Furosemide [Lasix] 20 mg PO BID 11/05/19 [History] HYDROcodone/APAP 7.5-325MG [[place] 7.5-325] 1 tab PO TID PRN 11/05/19 [History] Ibuprofen [Motrin] 600 mg PO QID PRN 11/05/19 [History] Montelukast Sodium [Singulair] 10 mg PO HS 11/05/19 [History] Clindamycin [Cleocin] 150 mg PO QID cap 11/06/19 [Rx] Follow up Appointment(s)/Referral(s): Ngoc Schwarz MD [Primary Care Provider] - 11/07/19 3:15 pm Geo Heredia MD [STAFF PHYSICIAN] - 11/26/19 12:45 pm Patient Instructions/Handouts: Left Heart Catheterization (DC), Sinusitis (GEN)
--- NOTE | 2019-11-06 16:28 | PN ---
PROGRESS NOTE A 79-year-old lady who presented to hospital with an acute coronary syndrome, underwent emergent cardiac catheterization that did not reveal significant obstructive CAD. She has had an uneventful stay in the hospital, has sinusitis that is being treated by the primary care physician. She denies chest pain, shortness of breath, dizziness or syncope. An echocardiogram on this admission revealed normal LV systolic function with severe aortic stenosis with a peak gradient of 86 mm and a mean gradient of 54 mm across the aortic valve. Patient also has moderate mitral stenosis. PHYSICAL EXAM: This morning, she is comfortable at rest. Vital signs are stable. There is no jugular venous distention. Chest exam reveals good air entry bilaterally. Heart exam reveals first and second heart sounds, a grade 4 x 6 ejection systolic murmur in the aortic area. Abdomen is soft. Exam of extremities did not reveal any edema. Peripheral pulses are felt. LABS: Show that the hemoglobin is 10.1, potassium is 4, creatinine is 1. ASSESSMENT: 1. Acute coronary syndrome, status post catheterization. The patient's EKG was abnormal secondary to left ventricular hypertrophy. 2. Severe aortic stenosis. PLAN: Patient is stable for discharge. I told the patient about her aortic stenosis and we will address this issue in the outpatient setup. MMODL / IJN: [id number] /
[2019-11-06] MEDS ORDERED: MONTELUKAST 10 MG TAB PO SCH (21:00)
--- NOTE | 2019-11-08 10:07 | CDI ---
Documentation Clarification Form Date: 11/08/2019 From: Fco Chou Phone: If you have a question about this query, please contact Alana Mao, Sales Performance Analyst at [phone] between 8am and 5pm. Admit Date: 11/05/2019 Discharge Date: 11/06/2019 Patient Name: Valerie Paniagua Visit Number: [id number] ATTENTION: The Clinical Documentation Specialists (CDI) and [facility] Coding Staff appreciate your assistance in clarifying documentation. Please respond to the clarification below the line at the bottom and electronically sign. The CDI & [facility] Coding staff will review the response and follow-up if needed. Please note: Queries are made part of the Legal Health Record. If you have any questions, please contact the author of this message via ITS. Dear Concepcion Rock., The patient presented with the Chest pain. History/Risk Factors: COPD, HTN, Hyperlipidemia. Vital Signs:11/06/19 04:00 98.2 F 65 22 134/55 96 Treatment: Cardiac Catheterization Per Dr. Giovanna Guardado results showed Acute coronary syndrome, status post catheterization.The patient's EKG was abnormal secondary to left ventricular hypertrophy. CATH Showed "Mild nonobstructive coronary artery disease involving LAD". DS stated ".Episode of chest pain, with slight elevation in troponin level and abnormal EKG findings, cardiac catheterization was done and revealed normal coronary arteries". In your professional opinion, can you please clarify CAD presence? YES NO Other, please specify Unable to determine patient has mild nonobstructive CAD involving the mid LAD MTDD
== END 2019-11-06 15:00 | disposition home or self-care (01) ==
LOC: EC 15:11 → 2SICU 16:36 → INTOOBSV 16:36 → 2SICU 17:36 → UNDODISIN 11-06 15:00
PROVIDERS: ADMIT Internal Medicine; ATTEND Internal Medicine
PROC: 4A023N7 Measurement of Cardiac Sampling and Pressure, Left Heart, Percutaneous Approach (ICD-10-PCS; principal; 2019-11-05 16:55)
PROC: B2111ZZ Fluoroscopy of Multiple Coronary Arteries using Low Osmolar Contrast (ICD-10-PCS; principal; 2019-11-05 16:55)
DX: R07.89 Other chest pain (principal); R94.31 Abnormal electrocardiogram [ECG] [EKG]; R79.89 Other specified abnormal findings of blood chemistry; I25.10 Atherosclerotic heart disease of native coronary artery without angina pectoris; I08.0 Rheumatic disorders of both mitral and aortic valves; I10 Essential (primary) hypertension; G47.33 Obstructive sleep apnea (adult) (pediatric); I49.9 Cardiac arrhythmia, unspecified; F32.9 Major depressive disorder, single episode, unspecified; F03.90 Unspecified dementia, unspecified severity, without behavioral disturbance, psychotic disturbance, mood disturbance, and anxiety; F41.9 Anxiety disorder, unspecified; J44.9 Chronic obstructive pulmonary disease, unspecified; M19.90 Unspecified osteoarthritis, unspecified site; K21.9 Gastro-esophageal reflux disease without esophagitis; K44.9 Diaphragmatic hernia without obstruction or gangrene; E78.5 Hyperlipidemia, unspecified; J01.90 Acute sinusitis, unspecified; Z79.891 Long term (current) use of opiate analgesic; Z79.899 Other long term (current) drug therapy; Z88.0 Allergy status to penicillin; Z88.2 Allergy status to sulfonamides; Z88.1 Allergy status to other antibiotic agents; Z88.8 Allergy status to other drugs, medicaments and biological substances; Z90.89 Acquired absence of other organs; Z98.84 Bariatric surgery status; Z98.890 Other specified postprocedural states; Z96.651 Presence of right artificial knee joint; Z96.641 Presence of right artificial hip joint; Z85.828 Personal history of other malignant neoplasm of skin; Z87.891 Personal history of nicotine dependence; Z82.3 Family history of stroke; Z82.49 Family history of ischemic heart disease and other diseases of the circulatory system
CPT/HCPCS: 96376; 96365; 99285; 36415; 93306; 93458; 80053; 80048; 83690; 83735; 84484; 85025 ×2; 85610; 85730; G0378 ×2; C1769 ×3; C1760; C1894; J2250; J1644 ×2; J2001; J3010; Q9967

== ENCOUNTER 2019-11-29 06:41 | Day surgery (SDC) | payer MEDICARE ==
[2019-11-27 12:32] VITALS: BMI 35.1
[2019-11-29 07:05] VITALS: TEMP 98.7
[2019-11-29] MEDS ORDERED: SODIUM CHLORIDE 0.9% 500 ML 500 ML IV ONE (07:07)
[2019-11-29] MEDS ORDERED: fentaNYL (PF) 50 MCG/ML 2 ML AMP ONE (07:12)
[2019-11-29] MEDS: BENZOCAINE SPRAY 1 CAN MUCOUS MEM ONE ×2 (07:26→07:38)
[2019-11-29] MEDS ORDERED: fentaNYL (PF) 50 MCG/ML 2 ML AMP IV ONE (07:38)
[2019-11-29] MEDS ORDERED: MIDAZOLAM 2 MG/2 ML VIAL IV ONE (07:38)
[2019-11-29] MEDS ORDERED: SODIUM CHLORIDE 0.9% 1,000 ML IV SCH (08:00)
[2019-11-29 08:01] VITALS: RESP 16
--- NOTE | 2019-11-29 08:16 | ECHOT ---
TRANSESOPHAGEAL ECHOCARDIOGRAM PROCEDURE PERFORMED: Transesophageal echo. INDICATION: Aortic stenosis. PROCEDURE NOTE: After obtaining informed consent, transesophageal echocardiogram was performed in left lateral position using an Omni plane probe. Local and IV sedation were obtained using Xylocaine spray, 2 mg of Versed and 25 mcg of fentanyl. The patient tolerated the procedure well without any obvious immediate complications. Patient received moderate conscious sedation. Total sedation time was 5 minutes. We performed 2D color and Doppler evaluation on this HERBERT. FINDINGS: 1. The aortic valve is a 3-leaflet valve that is heavily calcified and shows severe restriction in leaflet mobility. By planimetry the valve area is around 0.6 square cm. 2. Mitral valve shows severe mitral annular calcification with mild to moderate mitral regurgitation. 3. Tricuspid valve shows mild tricuspid regurgitation. 4. Left atrium appears enlarged. Right atrium and right ventricle seen within normal limits. 5. Interatrial septum: There is no evidence of [id number] shunt by color-flow Doppler or [id number]-wl-[id number] shunt by agitated saline contrast study. 6. The left ventricle shows concentric left ventricular hypertrophy with normal LV systolic function with an ejection fraction of 60%. There is acceleration of the color flow in the left ventricular outflow tract. 7. Aorta: Aortic root measures within normal limits. There are moderate atherosclerotic changes noted. CONCLUSION: Severe aortic stenosis with a valve area of 0.63 square cm by planimetry. PLAN: Patient had a cardiac catheterization that revealed mild nonobstructive CAD and she will be referred for TAVR. MMODL / IJN: [id number] /
[2019-11-29 10:31] VITALS: BP 115/63; PULSE 71
--- NOTE | 2019-11-29 15:13 | LTR ---
11/29/2019 Lesly Schwarz M.D. RE: Valerie Paniagua. Dear Lesly: I performed transesophageal echo on Valerie Paniagua. The detailed report is enclosed for your records. In brief, the HERBERT reveals severe aortic stenosis. The patient already had a cardiac catheterization that revealed mild nonobstructive coronary artery disease and she will be referred out for TAVR for symptomatic aortic stenosis. Thank you for giving me the privilege to participate in the care of this pleasant lady. Sincerely, Geo Heredia M.D. CRISTOPHER / YESENIA: [id number] /
== END 2019-11-29 10:28 | disposition home or self-care (01) ==
LOC: CATHCVL 06:41
PROVIDERS: ATTEND Internal Medicine Cardiovascular Disease
DX: I08.3 Combined rheumatic disorders of mitral, aortic and tricuspid valves (principal); I11.0 Hypertensive heart disease with heart failure; I50.9 Heart failure, unspecified; I25.10 Atherosclerotic heart disease of native coronary artery without angina pectoris; E78.5 Hyperlipidemia, unspecified; Z88.0 Allergy status to penicillin; Z88.1 Allergy status to other antibiotic agents; Z88.2 Allergy status to sulfonamides; Z79.899 Other long term (current) drug therapy; Z82.49 Family history of ischemic heart disease and other diseases of the circulatory system
CPT/HCPCS: 93312; 93320; 93325; J2250; J3010

== ENCOUNTER → 2019-12-20 | Outpatient (CLI) | payer MEDICARE ==
[2019-12-20 11:20] LABS: Basophils # (A) 0.1 k/uL (0-0.2); Basophils % (A) 1 %; Eosinophils # (A) 0.5 k/uL (0-0.7); Eosinophils % (A) 5 %; HCT 32.9 % (34.0-46.0); HGB 10.5 gm/dL (11.4-16.0); Lymphocytes # (A) 1.5 k/uL (1.0-4.8); Lymphocytes % (A) 15 %; MCH 27.8 pg (25.0-35.0); MCHC 31.9 g/dL (31.0-37.0); Mean Platelet Volume 7.4; Monocytes # (A) 0.5 k/uL (0-1.0); Monocytes % (A) 5 %; Neutrophils # (A) 7.2 k/uL (1.3-7.7); Neutrophils % (A) 72 %; Platelet Count 311 k/uL (150-450); RBC 3.78 m/uL (3.80-5.40); RDW 14.6 % (11.5-15.5)
[2019-12-20 18:00] LABS: Hemoglobin A1C 6.2 % (4.0-6.0)
[2019-12-20 21:02] LABS: African American GFR (CKD) 62.1 (60.0-200.0); Albumin 4.2 g/dL (3.80-4.90); Albumin/Globulin Ratio 2.21 (1.60-3.17); Anion Gap 8.2 mmol/L (4.00-12.00); Calcium 10.2 mg/dL (8.7-10.3); Carbon Dioxide 28.8 mmol/L (21.6-31.8); Chol/HDL Ratio 4.28; Globulin 1.9 g/dL (1.6-3.3); LDL Cholesterol,Calculated 148.2 mg/dL (0.0-131.0); Non-African American GFR(CKD) 53.5 (60.0-200.0); Potassium 4.6 mmol/L (3.5-5.5); Total Bilirubin 0.5 mg/dL (0.2-1.2); Total Protein 6.1 g/dL (6.2-8.2); VLDL Calculation 28.8 mg/dL (5.00-40.00)
== END | disposition home or self-care (01) ==
LOC: LABWHC1 10:09
PROVIDERS: ATTEND Emergency Medicine
DX: I10 Essential (primary) hypertension (principal); E78.5 Hyperlipidemia, unspecified; F41.9 Anxiety disorder, unspecified; R73.01 Impaired fasting glucose; I35.0 Nonrheumatic aortic (valve) stenosis
CPT/HCPCS: 36415; 80053; 80061; 83036; 83880; 84443; 85025

== ENCOUNTER → 2020-08-05 | Outpatient (CLI) | payer MEDICARE ==
--- NOTE | 2020-08-05 16:21 | SFUN ---
SLEEP CENTER FOLLOW UP NOTE DATE OF SERVICE: 08/05/2020 This 79-year-old lady has been followed in Sleep Center for treatment of obstructive sleep apnea-hypopnea syndrome. The patient is successfully continuing to use her CPAP equipment. Complains that sometimes can show a level of water into the humidifier at the same as when she starts it. The patient does not know how to adjust humidity in her CPAP unit. [place] Sleepiness Scale today is 5. I checked her CPAP unit. Pressure is 9 cm of water. For the last year, the patient used it 2r8 nights. Leak is 32 L/minute, which is slightly high, but apnea-hypopnea index is absolutely perfect, it is only 0.5. Patient is on oxygen 2 L/minute during the nighttime for the COPD. Patient recently had aortic valve replacement. Feels much better. No shortness of breath during walking as she had before. MEDICATIONS: Atenolol 25 mg once a day, Cymbalta, hydrochlorothiazide, Wellbutrin, Motrin, Xanax as needed, Cozaar 25 mg once a day, [place] as needed. PHYSICAL EXAMINATION: GENERAL: lady without distress. VITAL SIGNS: BP 166/75, HR 69, RR 15, height 5 feet 1-1/2, weight 195.2, body mass index is 36.2, oxygen saturation room air 98%. HEENT: PERRLA, EOMI. Oropharynx extremely low position of soft palate, Mallampati 4. NECK: Supple, no JVD. Thyroid is not palpable. LUNGS: Clear to percussion and to auscultation. Good air exchange. No wheezing or rhonchi. HEART: S1, S2 regular. ABDOMEN: Soft and nontender. Bowel sounds are present. No organomegaly appreciated. EXTREMITIES: No clubbing or cyanosis. LINE REPAIRER: Awake, alert, and oriented X3. Cranial nerves 2 to 7 intact. There is no fasciculation or atrophy. noted. No focal deficits observed. IMPRESSION: 1. Obstructive sleep apnea-hypopnea syndrome. Patient continued to use her CPAP equipment benefiting from treatment. 2. Status post aortic valve replacement. 3. Hypertension. 4. History of congestive heart failure. 5. History of depression. 6. History of anxiety. 7. Allergies. 8. Acid reflux. 9. Status post right knee replacement. 10.Status post right hip replacement. 11.Status post left shoulder surgery. 12.History of chronic obstructive pulmonary disease on oxygen supplement 2 L/minute during the sleep. I teach the patient how to adjust level of humidity in her CPAP unit. PLAN: 1. Patient will continue to use PAP equipment every night for the whole night. 2. Sleep hygiene with regular time in bed for at least 7-1/2 to 8 hours. 3. Precautions related to driving. No driving if feeling sleepiness. 4. I will maintain all necessary prescription for PAP supplies including mask, tube, filters. 5. Watching weight. 6. Follow-up visit in 6 months or earlier if patient has any problems. Thank you very much for allowing me to participate in management of your patient. Sincerely, Janak Washington MD, PhD, FAASM Diplomat of [place] [employer] [place] [employer] Furniture Reproducer of [facility] [place] MMODL / TIAN: [id number] /
== END | disposition home or self-care (01) ==
LOC: SLEEP 10:50
PROVIDERS: ATTEND Internal Medicine
DX: G47.33 Obstructive sleep apnea (adult) (pediatric) (principal); I10 Essential (primary) hypertension; K21.9 Gastro-esophageal reflux disease without esophagitis; Z96.651 Presence of right artificial knee joint; Z96.641 Presence of right artificial hip joint; Z95.2 Presence of prosthetic heart valve; Z99.89 Dependence on other enabling machines and devices; Z98.890 Other specified postprocedural states; J44.9 Chronic obstructive pulmonary disease, unspecified; Z99.81 Dependence on supplemental oxygen; Z86.59 Personal history of other mental and behavioral disorders

== ENCOUNTER → 2021-02-18 | Outpatient (CLI) | payer MEDICARE ==
--- NOTE | 2021-02-18 13:24 | SFUN ---
SLEEP CENTER FOLLOW UP NOTE DATE OF SERVICE: 02/18/2021 This 80-year-old lady has been followed in Sleep Center for treatment of obstructive sleep apnea-hypopnea syndrome. The patient continues to use her CPAP equipment with oxygen supplement at night. Her [place] Sleepiness Scale today is 5, which is totally normal. I checked her CPAP unit. Pressure is 9 cm of water. Usage is 13/30 nights with average 5.5 hours per night. Leak is 32 L/minute. Apnea-hypopnea index is only 0.8. Humidity is at the level of 4. Sometimes the patient may have discomfort in her nose. MEDICATIONS: Aldactazide, Cozaar, atenolol, Wellbutrin, Protonix, Xanax as needed, [place] as needed, aspirin 81 mg once a day. PHYSICAL EXAMINATION: GENERAL: Pleasant patient in no distress. VITAL SIGNS: BP 117/57, HR 73, RR 18, weight 199, which is about the same as during previous visit. Temperature 95.9, oxygen saturation at room air 97%. HEENT: PERRLA, EOMI, evaluation of oropharynx showed tongue protrudes midline. Extremely low position of soft palate; Mallampati IV. NECK: Supple, no JVD. Thyroid is not palpable. LUNGS: Clear to percussion and to auscultation. Good air exchange. No wheezing or rhonchi. HEART: S1, S2 regular. No murmurs, gallops, or rubs. ABDOMEN: Slightly obese. EXTREMITIES: No clubbing or cyanosis. QUARRY WORKER: Awake, alert, and oriented X3. Cranial nerves 2 to 7 intact. There is no fasciculation or atrophy. noted. No focal deficits observed. IMPRESSION: 1. Obstructive sleep apnea-hypopnea syndrome. Patient demonstrated borderline compliance with treatment, benefitting from treatment. 2. Obesity. 3. History of hypertension. 4. History of congestive heart failure. 5. History of depression. 6. History of anxiety. 7. 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 8. Status post total right knee replacement. 9. Status post total right hip replacement. 10.Status post left shoulder surgery. 11.Status post aortic valve replacement in March of 2020. PLAN: 1. Repeat oximetry during the sleep on CPAP at room air to re-evaluate necessity for oxygen supplement. Previous test was done before patient had surgery for aortic valve replacement. 2. Patient will continue to use PAP equipment every night for the whole night. 3. Sleep hygiene with regular time in bed for at least 7-1/2 to 8 hours. 4. Precautions related to driving. No driving if feeling sleepiness. 5. I will maintain all necessary prescription for PAP supplies including mask, tube, filters. 6. Watching weight. 7. Follow-up visit in 6 months or earlier if patient has any problems. Thank you very much for allowing me to participate in the management of your patient. Sincerely, Janak Washington MD, PhD, FAASM Diplomat of [place] [employer] Sleep Medicine Board of [place] [employer] of [employer] Medicine American Studies Professor of [facility] [place] MMODL / IJN: [id number] /
== END ==
LOC: SLEEP 10:47
PROVIDERS: ATTEND Internal Medicine
DX: G47.33 Obstructive sleep apnea (adult) (pediatric) (principal); E66.9 Obesity, unspecified; I11.0 Hypertensive heart disease with heart failure; I50.9 Heart failure, unspecified; F32.9 Major depressive disorder, single episode, unspecified; F41.9 Anxiety disorder, unspecified; Z85.89 Personal history of malignant neoplasm of other organs and systems; Z96.651 Presence of right artificial knee joint; Z96.641 Presence of right artificial hip joint; Z98.890 Other specified postprocedural states; Z95.2 Presence of prosthetic heart valve; Z79.82 Long term (current) use of aspirin; Z79.899 Other long term (current) drug therapy; Z88.6 Allergy status to analgesic agent; Z88.1 Allergy status to other antibiotic agents; Z88.0 Allergy status to penicillin; Z88.2 Allergy status to sulfonamides; Z88.8 Allergy status to other drugs, medicaments and biological substances; Z87.891 Personal history of nicotine dependence

== ENCOUNTER 2021-04-16 00:36 | Emergency (ER) | payer MEDICARE ==
--- NOTE | 2021-04-16 00:40 | ED ---
Dizziness HPI - General Stated Complaint: Cardiac issues Time Seen by Provider: 04/16/21 00:37 Source: RN notes reviewed, old records reviewed Mode of arrival: EMS Limitations: no limitations - History of Present Illness Initial Comments: This is an 80-year-old female to the emergency department for evaluation of a fall dizziness is related prior to the fall. No chest pain or shortness of breath she did hit her head no loss of consciousness. Patient states she otherwise feels well. No recent change in medications. No current chest pain or shortness of breath. MD Complaint: dizziness -: minutes(s) Timing: gradual onset Description: sense of movement, lightheadedness History of Same: Yes History of Trauma: Yes Severity: mild Improves With: nothing Worsens With: nothing Associated Symptoms: denies other symptoms - Related Data Home Medications Medication Instructions Recorded Confirmed Spironolactone-Hctz 25-25Mg 1 tab PO DAILY 12/08/14 11/29/19 [Aldactazide 25-25 MG] Donepezil HCl [Aricept] 5 mg PO DAILY 04/12/17 11/29/19 buPROPion XL [Wellbutrin XL] 300 mg PO DAILY 04/24/17 11/29/19 DULoxetine HCL [Cymbalta] 30 mg PO DAILY 11/05/19 11/29/19 Fluticasone Nasal [place] [Flonase 1 spray EA NOSTRIL DAILY PRN 11/05/19 11/29/19 Nasal [place]] Furosemide [Lasix] 20 mg PO BID 11/05/19 11/29/19 HYDROcodone/APAP 7.5-325MG [[place] 1 tab PO TID PRN 11/05/19 11/29/19 7.5-325] Ibuprofen [Motrin] 600 mg PO QID PRN 11/05/19 11/29/19 Montelukast Sodium [Singulair] 10 mg PO HS 11/05/19 11/29/19 guaiFENesin [Mucinex] 600 mg PO DAILY 11/27/19 11/29/19 ALPRAZolam [Xanax] 0.25 mg PO HS PRN 11/29/19 11/29/19 Previous Rx's Medication Instructions Recorded Losartan [Cozaar] 25 mg PO DAILY tab 11/17/17 atenoloL 25 mg PO DAILY #30 tablet 11/17/17 Allergies Allergy/AdvReac Type Severity Reaction Status Date / Time celecoxib [From Celebrex] Allergy Rash/Hives Verified 11/29/19 06:50 cephalexin monohydrate Allergy Rash/Hives Verified 11/29/19 06:50 [From Keflex] Penicillins Allergy Rash/Hives Verified 11/29/19 06:50 Sulfa (Sulfonamide Allergy Rash/Hives Verified 11/29/19 06:50 Antibiotics) Dfbylou-GKE-KvH Reductase AdvReac MUSCLE PAIN Verified 11/29/19 06:50 Inhibitor [Xxrzsag-Lrp-Aac Reductase Inhibitor] Review of Systems ROS Statement: Those systems with pertinent positive or pertinent negative responses have been documented in the HPI. ROS Other: All systems not noted in ROS Statement are negative. Past Medical History Past Medical History: Cancer, COPD, GERD/Reflux, Hyperlipidemia, Hypertension, Osteoarthritis (OA) Additional Past Medical History / Comment(s): HIATAL HERNIA, HX SKIN CANCER , H EART MURMUR, BACK & HIP PAIN- USES CANE PRN. History of Any Multi-Drug Resistant Organisms: None Reported Past Surgical History: Bariatric Surgery, Bladder Surgery, Heart Catheterization, Joint Replacement, Orthopedic Surgery, Tonsillectomy Additional Past Surgical History / Comment(s): left shoulder surgery, rt knee replacement, bladder suspension, LAP BAND INSERTED AND REMOVED AFTER 1 YEAR., HEART CATH([facility]-2009?) TRH, right hip replacement Past Anesthesia/Blood Transfusion Reactions: No Reported Reaction, Motion Sickness Smoking Status: Former smoker - Past Family History Father Family Medical History: Congestive Heart Failure (CHF), CVA/TIA Additional Family Medical History / Comment(s): CABG Mother Family Medical History: No Reported History General Exam General appearance: alert, in no apparent distress Head exam: Present: atraumatic, normocephalic, normal inspection Eye exam: Present: normal appearance, PERRL, EOMI. Absent: scleral icterus, conjunctival injection, periorbital swelling ENT exam: Present: normal exam, mucous membranes moist Neck exam: Present: normal inspection. Absent: tenderness, meningismus, lymphadenopathy Respiratory exam: Present: normal lung sounds bilaterally. Absent: respiratory distress, wheezes, rales, rhonchi, stridor Cardiovascular Exam: Present: regular rate, normal rhythm, normal heart sounds. Absent: systolic murmur, diastolic murmur, rubs, gallop, clicks GI/Abdominal exam: Present: soft, normal bowel sounds. Absent: distended, tenderness, guarding, rebound, rigid Extremities exam: Present: normal inspection, full ROM, normal capillary refill. Absent: tenderness, pedal edema, joint swelling, calf tenderness Back exam: Present: normal inspection Neurological exam: Present: alert, oriented X3, CN II-XII intact Psychiatric exam: Present: normal affect, normal mood Skin exam: Present: warm, dry, intact, normal color. Absent: rash Course Vital Signs 04/16/21 00:37 Temperature 98.8 F Pulse Rate 59 L Respiratory 18 Rate Blood Pressure 143/63 O2 Sat by Pulse 95 Oximetry - Reevaluation(s) Reevaluation #1: Medical record is reviewed Patient symptoms are significant improved Patient informed of results and questions answered EKG Findings - EKG Comments: EKG Findings:: UG is sinus bradycardia 59 MA 154 QRS 90 QTC 433, unchanged from prior Medical Decision Making - Medical Decision Making 80 female DF for evaluation after fall no triadic injury from fall dizziness prior to fall she was concern for any some sort of heart disease but EKG is unchanged lab values are normal patient feels well currently and feels like she can be discharged home - Lab Data Result diagrams: 04/16/21 01:41 04/16/21 01:41 Lab Results 04/16/21 04/16/21 04/16/21 Range/Units 01:41 01:41 01:41 WBC 12.1 H (3.8-10.6) k/uL RBC 3.73 L (3.80-5.40) m/uL Hgb 11.4 (11.4-16.0) gm/dL Hct 35.1 (34.0-46.0) % MCV 94.1 (80.0-100.0) fL MCH 30.5 (25.0-35.0) pg MCHC 32.4 (31.0-37.0) g/dL RDW 14.0 (11.5-15.5) % Plt Count 280 (150-450) k/uL MPV 8.8 Neutrophils % 72 % Lymphocytes % 16 % Monocytes % 6 % Eosinophils % 4 % Basophils % 1 % Neutrophils # 8.7 H (1.3-7.7) k/uL Lymphocytes # 1.9 (1.0-4.8) k/uL Monocytes # 0.7 (0-1.0) k/uL Eosinophils # 0.5 (0-0.7) k/uL Basophils # 0.1 (0-0.2) k/uL PT 10.1 (9.0-12.0) sec INR 0.9 (<1.2) APTT 22.6 (22.0-30.0) sec Sodium 134 L (137-145) mmol/L Potassium 4.5 (3.5-5.1) mmol/L Chloride 98 (98-107) mmol/L Carbon Dioxide 26 (22-30) mmol/L Anion Gap 10 mmol/L BUN 27 H (7-17) mg/dL Creatinine 1.10 H (0.52-1.04) mg/dL Est GFR (CKD-EPI)AfAm 55 (>60 ml/min/1.73 sqM) Est GFR (CKD-EPI)NonAf 48 (>60 ml/min/1.73 sqM) Glucose 89 (74-99) mg/dL Plasma Lactic Acid Tariq (0.7-2.0) mmol/L Calcium 10.0 (8.4-10.2) mg/dL Phosphorus 3.4 (2.5-4.5) mg/dL Magnesium 1.9 (1.6-2.3) mg/dL Total Bilirubin 0.6 (0.2-1.3) mg/dL AST 23 (14-36) U/L ALT 18 (4-34) U/L Alkaline Phosphatase 90 (38-126) U/L Creatine Kinase 37 (30-135) U/L Troponin I (0.000-0.034) ng/mL NT-Pro-B Natriuret Pep pg/mL Total Protein 6.9 (6.3-8.2) g/dL Albumin 4.0 (3.5-5.0) g/dL Urine Color Urine Appearance (Clear) Urine pH (5.0-8.0) Ur Specific [place] (1.001-1.035) Urine Protein (Negative) Urine Glucose (UA) (Negative) Urine Ketones (Negative) Urine Blood (Negative) Urine Nitrite (Negative) Urine Bilirubin (Negative) Urine Urobilinogen (<2.0) mg/dL Ur Leukocyte Esterase (Negative) 0104/16/21 04/16/21 Range/Units 01:41 01:41 01:41 WBC (3.8-10.6) k/uL RBC (3.80-5.40) m/uL Hgb (11.4-16.0) gm/dL Hct (34.0-46.0) % MCV (80.0-100.0) fL MCH (25.0-35.0) pg MCHC (31.0-37.0) g/dL RDW (11.5-15.5) % Plt Count (150-450) k/uL MPV Neutrophils % % Lymphocytes % % Monocytes % % Eosinophils % % Basophils % % Neutrophils # (1.3-7.7) k/uL Lymphocytes # (1.0-4.8) k/uL Monocytes # (0-1.0) k/uL Eosinophils # (0-0.7) k/uL Basophils # (0-0.2) k/uL PT (9.0-12.0) sec INR (<1.2) APTT (22.0-30.0) sec Sodium (137-145) mmol/L Potassium (3.5-5.1) mmol/L Chloride (98-107) mmol/L Carbon Dioxide (22-30) mmol/L Anion Gap mmol/L BUN (7-17) mg/dL Creatinine (0.52-1.04) mg/dL Est GFR (CKD-EPI)AfAm (>60 ml/min/1.73 sqM) Est GFR (CKD-EPI)NonAf (>60 ml/min/1.73 sqM) Glucose (74-99) mg/dL Plasma Lactic Acid Tariq 1.9 (0.7-2.0) mmol/L Calcium (8.4-10.2) mg/dL Phosphorus (2.5-4.5) mg/dL Magnesium (1.6-2.3) mg/dL Total Bilirubin (0.2-1.3) mg/dL AST (14-36) U/L ALT (4-34) U/L Alkaline Phosphatase (38-126) U/L Creatine Kinase (30-135) U/L Troponin I 0.016 (0.000-0.034) ng/mL NT-Pro-B Natriuret Pep 1270 pg/mL Total Protein (6.3-8.2) g/dL Albumin (3.5-5.0) g/dL Urine Color Urine Appearance (Clear) Urine pH (5.0-8.0) Ur Specific [place] (1.001-1.035) Urine Protein (Negative) Urine Glucose (UA) (Negative) Urine Ketones (Negative) Urine Blood (Negative) Urine Nitrite (Negative) Urine Bilirubin (Negative) Urine Urobilinogen (<2.0) mg/dL Ur Leukocyte Esterase (Negative) 04/16/21 Range/Units 03:11 WBC (3.8-10.6) k/uL RBC (3.80-5.40) m/uL Hgb (11.4-16.0) gm/dL Hct (34.0-46.0) % MCV (80.0-100.0) fL MCH (25.0-35.0) pg MCHC (31.0-37.0) g/dL RDW (11.5-15.5) % Plt Count (150-450) k/uL MPV Neutrophils % % Lymphocytes % % Monocytes % % Eosinophils % % Basophils % % Neutrophils # (1.3-7.7) k/uL Lymphocytes # (1.0-4.8) k/uL Monocytes # (0-1.0) k/uL Eosinophils # (0-0.7) k/uL Basophils # (0-0.2) k/uL PT (9.0-12.0) sec INR (<1.2) APTT (22.0-30.0) sec Sodium (137-145) mmol/L Potassium (3.5-5.1) mmol/L Chloride (98-107) mmol/L Carbon Dioxide (22-30) mmol/L Anion Gap mmol/L BUN (7-17) mg/dL Creatinine (0.52-1.04) mg/dL Est GFR (CKD-EPI)AfAm (>60 ml/min/1.73 sqM) Est GFR (CKD-EPI)NonAf (>60 ml/min/1.73 sqM) Glucose (74-99) mg/dL Plasma Lactic Acid Tariq (0.7-2.0) mmol/L Calcium (8.4-10.2) mg/dL Phosphorus (2.5-4.5) mg/dL Magnesium (1.6-2.3) mg/dL Total Bilirubin (0.2-1.3) mg/dL AST (14-36) U/L ALT (4-34) U/L Alkaline Phosphatase (38-126) U/L Creatine Kinase (30-135) U/L Troponin I (0.000-0.034) ng/mL NT-Pro-B Natriuret Pep pg/mL Total Protein (6.3-8.2) g/dL Albumin (3.5-5.0) g/dL Urine Color Yellow Urine Appearance Clear (Clear) Urine pH 6.5 (5.0-8.0) Ur Specific [place] 1.013 (1.001-1.035) Urine Protein Negative (Negative) Urine Glucose (UA) Negative (Negative) Urine Ketones Negative (Negative) Urine Blood Negative (Negative) Urine Nitrite Negative (Negative) Urine Bilirubin Negative (Negative) Urine Urobilinogen <2.0 (<2.0) mg/dL Ur Leukocyte Esterase Negative (Negative) - Radiology Data Radiology results: report reviewed (CT brain C-spine chest and pelvis x-ray are negative for acute disease), image reviewed Disposition Clinical Impression: Dizziness, Fall Disposition: HOME SELF-CARE Condition: Good Instructions (If sedation given, give patient instructions): Dizziness (ED) Is patient prescribed a controlled substance at d/c from ED?: No Referrals: Ngoc Schwarz MD [Primary Care Provider] - 1-2 days
[2021-04-16 00:43] VITALS: BP 143/63; PULSE 59; RESP 18; TEMP 98.8
[2021-04-16] MEDS ORDERED: SODIUM CHLORIDE 0.9% 1,000 ML IV STA (01:27)
--- NOTE | 2021-04-16 02:10 | CT ---
EXAMINATION TYPE: CT brain elvin zaragoza DATE OF EXAM: 04/16/2021 COMPARISON: None HISTORY: dizziness and fall. pain. no prior on PACS CT DLP: 1616.4 mGycm Automated exposure control for dose reduction was used. There is cerebral cortical atrophy. There is no mass effect or midline shift. There is no sign of int racranial hemorrhage. There is normal aeration of the mastoid sinuses. Cervical vertebra show some straightening. There is degenerative disc space narrowing in the mid and lower cervical spine at levels from C4 to T1. There is no compression fracture. Posterior elements ar e intact. There is multilevel hypertrophic facet arthropathy. IMPRESSION: Fibrotic changes in the lower cervical spine mainly at C5-6 and C6-7. No fracture. Cerebral atrophy. No acute intracranial abnormality.
--- NOTE | 2021-04-16 02:13 | XR ---
EXAMINATION TYPE: XR chest 1V DATE OF EXAM: 04/16/2021 COMPARISON: 11/16/2017 HISTORY: Fall. Chest pain TECHNIQUE: Single view FINDINGS: Heart and mediastinum are normal. Lungs are clear. There is small linear density at the lef t cardiophrenic angle consistent with scarring in the lingula. Diaphragm is normal. There is no pleur al effusion. There is no heart failure. There are chest leads. IMPRESSION: No active cardiopulmonary disease. Minimal scarring in the lingula left upper lobe. No change.
--- NOTE | 2021-04-16 02:15 | XR ---
EXAMINATION TYPE: XR pelvis AP view DATE OF EXAM: 04/16/2021 COMPARISON: NONE HISTORY: Fall. Pain TECHNIQUE: Single view FINDINGS: Pelvic ring appears intact. There is right hip prosthesis. There is narrowing of the left h ip joint space. Sacroiliac joints appear intact. There is some osteopenia. IMPRESSION: No acute abnormality of the pelvis. There is developing minimal protrusio of the prosthet ic right acetabulum.
[2021-04-16 02:42] LABS: Basophils # (A) 0.1 k/uL (0-0.2); Basophils % (A) 1 %; Eosinophils # (A) 0.5 k/uL (0-0.7); Eosinophils % (A) 4 %; HCT 35.1 % (34.0-46.0); HGB 11.4 gm/dL (11.4-16.0); Lymphocytes # (A) 1.9 k/uL (1.0-4.8); Lymphocytes % (A) 16 %; MCH 30.5 pg (25.0-35.0); MCHC 32.4 g/dL (31.0-37.0); MCV 94.1 fL (80.0-100.0); Mean Platelet Volume 8.8; Monocytes # (A) 0.7 k/uL (0-1.0); Monocytes % (A) 6 %; Neutrophils # (A) 8.7 k/uL (1.3-7.7); Neutrophils % (A) 72 %; Platelet Count 280 k/uL (150-450); RBC 3.73 m/uL (3.80-5.40); WBC 12.1 k/uL (3.8-10.6)
[2021-04-16 02:54] LABS: INR 0.9 (<1.2); Partial Thromboplastin Time 22.6 sec (22.0-30.0); Prothrombin Time 10.1 sec (9.0-12.0)
[2021-04-16 02:59] LABS: Magnesium 1.9 mg/dL (1.6-2.3); Phosphorus 3.4 mg/dL (2.5-4.5); Potassium 4.5 mmol/L (3.5-5.1); Total Bilirubin 0.6 mg/dL (0.2-1.3); Total Protein 6.9 g/dL (6.3-8.2)
[2021-04-16 03:34] LABS: Appearance,Urine Clear (Clear); Bilirubin,Urine Negative (Negative); Blood,Urine Negative (Negative); Color,Urine Yellow; Glucose,Urine (UA) Negative (Negative); Ketones,Urine Negative (Negative); Leukocyte Esterase,Urine Negative (Negative); Nitrite,Urine Negative (Negative); PH, Urine 6.5 (5.0-8.0); Protein,Urine Negative (Negative); Specific Gravity,Urine 1.013 (1.001-1.035); Urobilinogen,Urine <2.0 mg/dL (<2.0)
== END 2021-04-16 05:00 | disposition home or self-care (01) ==
LOC: EC 00:36
DX: R42 Dizziness and giddiness (principal); J44.9 Chronic obstructive pulmonary disease, unspecified; K21.9 Gastro-esophageal reflux disease without esophagitis; E78.5 Hyperlipidemia, unspecified; I10 Essential (primary) hypertension; M19.90 Unspecified osteoarthritis, unspecified site; Z88.0 Allergy status to penicillin; Z88.2 Allergy status to sulfonamides; Z88.1 Allergy status to other antibiotic agents; Z85.820 Personal history of malignant melanoma of skin; Z98.84 Bariatric surgery status; Z96.651 Presence of right artificial knee joint; Z87.891 Personal history of nicotine dependence
CPT/HCPCS: 36415; 70450; 71045; 72125; 72170; 80053; 81003; 82550; 83605; 83735; 83880; 84100; 84484; 85025; 85610; 85730; 93005; 96360; 99285

== ENCOUNTER → 2021-10-02 | Outpatient (CLI) | payer MEDICARE ==
--- NOTE | 2021-10-02 12:05 | XR ---
EXAMINATION TYPE: XR shoulder complete RT DATE OF EXAM: 10/02/2021 CLINICAL HISTORY: pain TECHNIQUE: Three views of the right shoulder are obtained. COMPARISON: None FINDINGS: There is no acute fracture/dislocation evident. There is minimal sclerosis at the right ridley rgical neck which could reflect remote impacted fracture. Severe degenerative narrowing glenohumeral joint space. The visualized ribs are intact and unremarkable. IMPRESSION: 1. There is no acute fracture or dislocation. ICD 10 NO FRACTURE, INITIAL EVALUATION
--- NOTE | 2021-10-02 12:13 | XR ---
EXAMINATION TYPE: XR cervical spine comp DATE OF EXAM: 10/02/2021 CLINICAL HISTORY: pain COMPARISON: NONE TECHNIQUE: Frontal, lateral, oblique, swimmers, and open mouth view of the cervical spine are obtaine d. FINDINGS: The cervical spine is visualized in its entirety from C1 thru the top of T1 level. It is s atisfactory in alignment without evidence of acute fracture or dislocation. The pre-vertebral soft t issue appears within normal limits. Disc spaces are well preserved. Moderate to severe degenerative n arrowing at C5-6 and C6-7 with ventral and dorsal spondylosis. Mild bilateral foraminal encroachment at each of these levels on the oblique images. The C1-C2 articulation is unremarkable on the open toby th view. IMPRESSION: Degenerative changes as discussed.
== END | disposition home or self-care (01) ==
LOC: RADXRMAIN 11:09
PROVIDERS: ATTEND Nurse Practitioner Family
DX: M25.511 Pain in right shoulder (principal); M54.2 Cervicalgia
CPT/HCPCS: 72050

== ENCOUNTER 2022-01-07 11:40 | Emergency (ER) | payer MEDICARE ==
--- NOTE | 2022-01-07 12:53 | ED ---
General Adult HPI - General Chief complaint: Fall Stated complaint: fall, head injury-sent by PCP Time Seen by Provider: 01/07/22 12:31 Source: patient, RN notes reviewed, old records reviewed Mode of arrival: wheelchair - History of Present Illness Initial comments: 81-year-old female who presents status post fall. Fall occurred yesterday there was head injury without loss consciousness, no anticoagulation. Patient states she tripped falling backwards. She was urged to come to the emergency department by her daughter who was concerned for intracranial pathology. Susana sr really has no complaints only minor pain. No other injuries. - Related Data Home Medications Medication Instructions Recorded Confirmed Spironolactone-Hctz 25-25Mg 1 tab PO DAILY 12/08/14 11/29/19 [Aldactazide 25-25 MG] Donepezil HCl [Aricept] 5 mg PO DAILY 04/12/17 11/29/19 buPROPion XL [Wellbutrin XL] 300 mg PO DAILY 04/24/17 11/29/19 DULoxetine HCL [Cymbalta] 30 mg PO DAILY 11/05/19 11/29/19 Fluticasone Nasal [place] [Flonase 1 spray EA NOSTRIL DAILY PRN 11/05/19 11/29/19 Nasal [place]] Furosemide [Lasix] 20 mg PO BID 11/05/19 11/29/19 HYDROcodone/APAP 7.5-325MG [[place] 1 tab PO TID PRN 11/05/19 11/29/19 7.5-325] Ibuprofen [Motrin] 600 mg PO QID PRN 11/05/19 11/29/19 Montelukast Sodium [Singulair] 10 mg PO HS 11/05/19 11/29/19 guaiFENesin [Mucinex] 600 mg PO DAILY 11/27/19 11/29/19 ALPRAZolam [Xanax] 0.25 mg PO HS PRN 11/29/19 11/29/19 Previous Rx's Medication Instructions Recorded Losartan [Cozaar] 25 mg PO DAILY tab 11/17/17 atenoloL 25 mg PO DAILY #30 tablet 11/17/17 Allergies Allergy/AdvReac Type Severity Reaction Status Date / Time celecoxib [From Celebrex] Allergy Rash/Hives Verified 01/07/22 12:04 cephalexin monohydrate Allergy Rash/Hives Verified 01/07/22 12:04 [From Keflex] Penicillins Allergy Rash/Hives Verified 01/07/22 12:04 Sulfa (Sulfonamide Allergy Rash/Hives Verified 01/07/22 12:04 Antibiotics) Ltaeglh-AUA-TmK Reductase AdvReac MUSCLE PAIN Verified 01/07/22 12:04 Inhibitor [Eialmhb-Rnz-Mwn Reductase Inhibitor] Review of Systems ROS Statement: Those systems with pertinent positive or pertinent negative responses have been documented in the HPI. ROS Other: All systems not noted in ROS Statement are negative. Past Medical History Past Medical History: Cancer, COPD, GERD/Reflux, Hyperlipidemia, Hypertension, Osteoarthritis (OA) Additional Past Medical History / Comment(s): HIATAL HERNIA, HX SKIN CANCER , HEART MURMUR, BACK & HIP PAIN- USES CANE PRN. History of Any Multi-Drug Resistant Organisms: None Reported Past Surgical History: Bariatric Surgery, Bladder Surgery, Heart Catheteriz ation, Joint Replacement, Orthopedic Surgery, Tonsillectomy Additional Past Surgical History / Comment(s): left shoulder surgery, rt knee replacement, bladder suspension, LAP BAND INSERTED AND REMOVED AFTER 1 YEAR., HEART CATH([facility]-2009?) TRH, right hip replacement Past Anesthesia/Blood Transfusion Reactions: No Reported Reaction, Motion Sickness Past Psychological History: Anxiety, Depression Smoking Status: Former smoker - Past Family History Father Family Medical History: Congestive Heart Failure (CHF), CVA/TIA Additional Family Medical History / Comment(s): CABG Mother Family Medical History: No Reported History General Exam General appearance: alert, in no apparent distress Head exam: Present: atraumatic, normocephalic Eye exam: Present: normal appearance, PERRL, EOMI ENT exam: Present: normal exam Neck exam: Present: normal inspection. Absent: tenderness, meningismus Respiratory exam: Present: normal lung sounds bilaterally. Absent: respiratory distress Cardiovascular Exam: Present: regular rate, normal rhythm GI/Abdominal exam: Present: soft. Absent: distended, tenderness, guarding Extremities exam: Present: normal inspection, normal capillary refill. Absent: pedal edema Neurological exam: Present: alert, oriented X3, CN II-XII intact. Absent: motor sensory deficit Psychiatric exam: Present: normal affect, normal mood Skin exam: Present: warm, intact. Absent: cyanosis, diaphoretic Course Vital Signs 01/07/22 12:00 Temperature 98.7 F Pulse Rate 69 Respiratory 18 Rate Blood Pressure 151/65 O2 Sat by Pulse 97 Oximetry Medical Decision Making - Medical Decision Making 81-year-old female with fall which occurred yesterday, head injury, no loss consciousness. Head CT is obtained which is negative for intracranial hem orrhage or mass effect, negative cervical spine no fracture subluxation. Patient reassured, stable for discharge. Disposition Clinical Impression: Concussion Disposition: HOME SELF-CARE Condition: Good Instructions (If sedation given, give patient instructions): Fall Prevention f or Older Adults (ED), Concussion (ED) Is patient prescribed a controlled substance at d/c from ED?: No Referrals: Ngoc Schwarz MD [Primary Care Provider] - 1-2 days Time of Disposition: 13:20
--- NOTE | 2022-01-07 13:09 | CT ---
EXAMINATION TYPE: CT brain elvin zaragoza DATE OF EXAM: 01/07/2022 COMPARISON: HISTORY: Fall CT DLP: 1589.[address] of the brain was performed. The ventricles, basal cisterns and sulci overlying the cerebral convexities demonstrate mild enlargem ent. There is no evidence for intracranial hemorrhage or sulcal effacement. There is decreased attenuatio n about the periventricular white matter and deep white matter of both cerebral hemispheres, compatib le with chronic small vessel ischemia. No mass effects are seen. If symptoms persist consider MRI. Osseous calvarium is intact. IMPRESSION: 1. Age related atrophic and chronic small vessel ischemic change without acute intracranial process seen at this time. CT Cervical Spine: Unenhanced CT of the cervical spine was performed with bone and soft tissue window settings submitted . Coronal and sagittal reconstruction is obtained. There is normal alignment and prevertebral soft tissues. No evidence for acute cervical fracture . Scattered degenerative disc disease and spondylosis. Biapical scarring. IMPRESSION: 1. No evidence for acute fracture or subluxation of the cervical spine.
[2022-01-07 13:31] VITALS: BP 143/70; PULSE 72; RESP 16; TEMP 99
== END 2022-01-07 13:28 | disposition home or self-care (01) ==
LOC: EC 11:40
DX: S06.0X0A Concussion without loss of consciousness, initial encounter (principal); J44.9 Chronic obstructive pulmonary disease, unspecified; K21.9 Gastro-esophageal reflux disease without esophagitis; E78.5 Hyperlipidemia, unspecified; I10 Essential (primary) hypertension; Z88.0 Allergy status to penicillin; Z88.1 Allergy status to other antibiotic agents; Z88.6 Allergy status to analgesic agent; Z88.8 Allergy status to other drugs, medicaments and biological substances; Z88.2 Allergy status to sulfonamides; Z87.891 Personal history of nicotine dependence; Z79.899 Other long term (current) drug therapy
CPT/HCPCS: 70450; 72125; 99284

== ENCOUNTER → 2022-02-03 | Outpatient (CLI) | payer MEDICARE ==
--- NOTE | 2022-02-04 10:09 | MM ---
Reason for Exam: Screening (asymptomatic). Last mammogram was performed 2 year(s) and 11 month(s) ago. Patient History: Menarche at age 12. First Full-Term at age 24. Postmenopausal. Patient has history of breast feeding. Patient used Estrogen for 2 years. Excisional Biopsy on the Right side. Excisional Biopsy on the Right side. Excisional Biopsy on the Left side. Risk Values: Lianet 5 year model risk: 2.2%. NCI Lifetime model risk: 3.1%. Prior Study Comparison: 01/22/2018 Right Diagnostic Mammogram, [facility]. 07/23/2018 Right Diagnostic Mammogram, [facility]. 02/12/2019 Bilateral Screening Mammogram, [facility]. Tissue Density: There are scattered fibroglandular densities. Findings: Analyzed By CAD. There is no suspicious group of microcalcifications or new suspicious mass in either breast. Benign-appearing calcific patient's. Overall Assessment: Benign, BI-RAD 2 Management: Screening Mammogram of both breasts in 1 year. A clinical breast exam by your physician is recommended on an annual basis and results should be correlated with mammographic findings. [facility] will attempt to contact patient to return for supplemental views and ultrasound if indicated. Electronically signed and approved by: Denny Mora DO
== END | disposition home or self-care (01) ==
LOC: RADMAMWWP 14:12
PROVIDERS: ATTEND Family Medicine
DX: Z12.31 Encounter for screening mammogram for malignant neoplasm of breast (principal); Z78.0 Asymptomatic menopausal state
CPT/HCPCS: 77063; 77067

== ENCOUNTER 2022-07-30 18:00 | Emergency (ER) | payer MEDICARE ==
[2022-07-30 18:07] VITALS: BP 148/86; PULSE 80; RESP 20; TEMP 98.2
[2022-07-30 18:48] LABS: Basophils # (A) 0.1 k/uL (0-0.2); Basophils % (A) 1 %; Eosinophils # (A) 0.5 k/uL (0-0.7); Eosinophils % (A) 5 %; HCT 36.9 % (34.0-46.0); HGB 12.3 gm/dL (11.4-16.0); Lymphocytes # (A) 1.9 k/uL (1.0-4.8); Lymphocytes % (A) 20 %; MCH 31.1 pg (25.0-35.0); MCHC 33.2 g/dL (31.0-37.0); MCV 93.5 fL (80.0-100.0); Mean Platelet Volume 7.7; Monocytes # (A) 0.5 k/uL (0-1.0); Monocytes % (A) 5 %; Neutrophils # (A) 6.5 k/uL (1.3-7.7); Neutrophils % (A) 68 %; Platelet Count 328 k/uL (150-450); RBC 3.95 m/uL (3.80-5.40); RDW 13.8 % (11.5-15.5); WBC 9.6 k/uL (3.8-10.6)
--- NOTE | 2022-07-30 18:56 | ED ---
Female Urogenital HPI - General Chief complaint: Urogenital Stated complaint: UTI Time Seen by Provider: 07/30/22 18:09 Source: patient Mode of arrival: wheelchair Limitations: no limitations - History of Present Illness Initial comments: Patient is an 81-year-old female presenting with chief complaint of dysuria. She also admits to urinary urgency and frequency. Son at bedside states that patient had one episode of what seemed to be hallucinations. [facility], son states that she did have a UTI while there was on Cipro for 5 days about 4 weeks ago. Patient states that she has continued to have dysuria after treatment. No back pain or abdominal pain. No fevers or chills. No nausea or vomiting. No chest pain or difficulty breathing. - Related Data Home Medications Medication Instructions Recorded Confirmed Donepezil HCl [Aricept] 5 mg PO DAILY 04/12/17 05/13/22 buPROPion XL [Wellbutrin XL] 300 mg PO DAILY 04/24/17 05/13/22 DULoxetine HCL [Cymbalta] 30 mg PO DAILY 11/05/19 05/13/22 Montelukast Sodium [Singulair] 10 mg PO DAILY 11/05/19 05/13/22 Famotidine [Pepcid] 40 mg PO DAILY 05/13/22 05/13/22 Pantoprazole Sodium [Protonix] 40 mg PO DAILY 05/13/22 05/13/22 Torsemide [Demadex] 10 mg PO DAILY 05/13/22 05/13/22 Previous Rx's Medication Instructions Recorded Losartan [Cozaar] 25 mg PO DAILY tab 11/17/17 atenoloL 25 mg PO DAILY #30 tablet 11/17/17 Aspirin 81 mg PO DAILY tab 05/18/22 Clopidogrel [Plavix] 75 mg PO DAILY tab 05/18/22 Mupirocin 2% Oint [Bactroban 2% 1 applic TOPICAL TID each 05/18/22 Oint] Ciprofloxacin HCl [Cipro] 250 mg PO BID 3 Days #6 tab 07/30/22 Allergies Allergy/AdvReac Type Severity Reaction Status Date / Time celecoxib [From Celebrex] Allergy Rash/Hives Verified 05/13/22 20:57 cephalexin monohydrate Allergy Rash/Hives Verified 05/13/22 20:57 [From Keflex] Penicillins Allergy Rash/Hives Verified 05/13/22 20:57 Sulfa (Sulfonamide Allergy Rash/Hives Verified 05/13/22 20:57 Antibiotics) Iuvhrdk-YAB-PeN Reductase AdvReac MUSCLE PAIN Verified 05/13/22 20:57 Inhibitor [Ikrmvgm-Hkl-Yjq Reductase Inhibitor] Review of Systems ROS Statement: Those systems with pertinent positive or pertinent negative responses have been documented in the HPI. ROS Other: All systems not noted in ROS Statement are negative. Past Medical History Past Medical History: Cancer, COPD, CVA/TIA, GERD/Reflux, Hyperlipidemia, Hypertension, Osteoarthritis (OA) Additional Past Medical History / Comment(s): HIATAL HERNIA, HX SKIN CANCER , HEART MURMUR, BACK & HIP PAIN- USES CANE PRN. History of Any Multi-Drug Resistant Organisms: None Reported Past Surgical History: Bariatric Surgery, Bladder Surgery, Cardiac Valve Replacement, Heart Catheterization, Joint Replacement, Orthopedic Surgery, Tonsillectomy Additional Past Surgical History / Comment(s): left shoulder surgery, rt knee replacement, bladder suspension, LAP BAND INSERTED AND REMOVED AFTER 1 YEAR., HEART CATH([facility]-2009?) TRH, right hip replacement; Aortic Valve replaced 03/2020 at [facility] Past Anesthesia/Blood Transfusion Reactions: No Reported Reaction, Motion Sickness Past Psychological History: Anxiety, Depression Smoking Status: Former smoker Past Alcohol Use History: Occasional Past Drug Use History: None Reported - Past Family History Father Family Medical History: Congestive Heart Failure (CHF), CVA/TIA Additional Family Medical History / Comment(s): CABG Mother Family Medical History: No Reported History General Exam Limitations: no limitations General appearance: alert, in no apparent distress Head exam: Present: atraumatic, normocephalic, normal inspection Eye exam: Present: normal appearance, EOMI. Absent: periorbital swelling Neck exam: Present: normal inspection, full ROM Respiratory exam: Present: normal lung sounds bilaterally. Absent: respiratory distress, wheezes, rales, rhonchi, stridor Cardiovascular Exam: Present: regular rate, normal rhythm, normal heart sounds. Absent: systolic murmur, diastolic murmur, rubs, gallop, clicks Neurological exam: Present: alert, oriented X3, CN II-XII intact Psychiatric exam: Present: normal affect, normal mood Skin exam: Present: warm, dry, intact, normal color. Absent: rash Course Vital Signs 07/30/22 18:04 Temperature 98.2 F Pulse Rate 80 Respiratory 20 Rate Blood Pressure 148/86 O2 Sat by Pulse 97 Oximetry Medical Decision Making - Medical Decision Making Was pt. sent in by a medical professional or institution (, PA, AIRCRAFT ARMORER, urgent care, hospital, or penitentiary...) When possible be specific @ -No Did you speak to anyone other than the patient for history (EMS, parent, family, police, friend...)? What history was obtained from this source @ -No Did you review nursing and triage notes (agree or disagree)? Why? @ -I reviewed and agree with nursing and triage notes Were old charts reviewed (outside hosp., previous admission, EMS record, old EKG, old radiological studies, urgent care reports/EKG's, penitentiary records)? Report findings @ -No old charts were reviewed Differential Diagnosis (chest pain, altered mental status, abdominal pain women, abdominal pain men, vaginal bleeding, weakness, fever, dyspnea, syncope, headache, dizziness, GI bleed, back pain, seizure, CVA, palpatations, mental health, musculoskeletal)? @ -MDM Differential Altered Mental Status: Hypoglycemia, DKA, hypercapnia, ETOH, overdose, CO poisoning, trauma, myxedema coma, HTN encephalopathy, infection, encephalitis, psychosis, intercranial hemorrhage, hepatic encephalopathy, meningitis, CVA this is not meant to be an all-inclusive list EKG interpreted by me (3pts min.). @ -As above X-rays interpreted by me (1pt min.). @ -None done CT interpreted by me (1pt min.). @ -None done U/S interpreted by me (1pt. min.). @ -None done What testing was considered but not performed or refused? (CT, X-rays, U/S, labs)? Why? @ -None What meds were considered but not given or refused? Why? @ -None Did you discuss the management of the patient with other professionals (professionals i.e. , BHUMI, AIRCRAFT ARMORER, lab, RT, psych nurse, social sciences research scientist, ship unloader, teacher, consumer loan officer, renal case manager)? Give summary @ -No Was smoking cessation discussed for >3mins.? @ -No Was critical care preformed (if so, how long)? @ -No Were there social determinants of health that impacted care today? How? (Homelessness, low income, unemployed, alcoholism, drug addiction, transportation, low edu. Level, literacy, decrease access to med. care, fpc, rehab)? @ -No Was there de-escalation of care discussed even if they declined (Discuss DNR or withdrawal of care, Hospice)? DNR status @ -No What co-morbidities impacted this encounter? (DM, HTN, Smoking, COPD, CAD, Cancer, CVA, ARF, Chemo, Hep., AIDS, mental health diagnosis, sleep apnea, morbid obesity)? @ -None Was patient admitted / discharged? Hospital course, mention meds given and route, prescriptions, significant lab abnormalities, going to OR and other pertinent info. @ -Patient is an 81-year-old male presenting with chief complaint of dysuria. Son at bedside states that she had an episode of confusion yesterday as well. Physical examination is unremarkable. Patient is found to have UTI, lab work negative for any significant abnormality. Patient is started on Cipro due to multiple drug ALLERGIES. Urine sent for culture. Patient is instructed to follow-up with her PCP. Follow-up with PCP. Report back to ER with any new or worsening symptoms. Discussed return parameters and answered all questions. Patient conveyed verbal understanding and agreed to the plan. I discussed this case in detail with my attending Dr. Ramos Undiagnosed new problem with uncertain prognosis? @ -No Drug Therapy requiring intensive monitoring for toxicity (Heparin, Nitro, Insulin, Cardizem)? @ -No Were any procedures done? @ -No Diagnosis/symptom? @ -UTI Acute, or Chronic, or Acute on Chronic? @ -Acute Uncomplicated (without systemic symptoms) or Complicated (systemic symptoms)? @ -Uncomplicated Side effects of treatment? @ -No Exacerbation, Progression, or Severe Exacerbation? @ -No Poses a threat to life or bodily function? How? (Chest pain, USA, MD, pneumonia, PE, COPD, DKA, ARF, appy, cholecystitis, CVA, Diverticulitis, Homicidal, Suicidal, threat to staff... and all critical care pts) @ -No - Lab Data Result diagrams: 07/30/22 18:22 07/30/22 18:22 Lab Results 07/30/22 07/30/22 07/30/22 Range/Units 18:22 18:22 18:22 WBC 9.6 (3.8-10.6) k/uL RBC 3.95 (3.80-5.40) m/uL Hgb 12.3 (11.4-16.0) gm/dL Hct 36.9 (34.0-46.0) % MCV 93.5 (80.0-100.0) fL MCH 31.1 (25.0-35.0) pg MCHC 33.2 (31.0-37.0) g/dL RDW 13.8 (11.5-15.5) % Plt Count 328 (150-450) k/uL MPV 7.7 Neutrophils % 68 % Lymphocytes % 20 % Monocytes % 5 % Eosinophils % 5 % Basophils % 1 % Neutrophils # 6.5 (1.3-7.7) k/uL Lymphocytes # 1.9 (1.0-4.8) k/uL Monocytes # 0.5 (0-1.0) k/uL Eosinophils # 0.5 (0-0.7) k/uL Basophils # 0.1 (0-0.2) k/uL Sodium 137 (137-145) mmol/L Potassium 4.2 (3.5-5.1) mmol/L Chloride 98 (98-107) mmol/L Carbon Dioxide 31 H (22-30) mmol/L Anion Gap 8 mmol/L BUN 25 H (7-17) mg/dL Creatinine 1.21 H (0.52-1.04) mg/dL Est GFR (CKD-EPI)AfAm 49 (>60 ml/min/1.73 sqM) Est GFR (CKD-EPI)NonAf 42 (>60 ml/min/1.73 sqM) Glucose 123 H (74-99) mg/dL Calcium 10.5 H (8.4-10.2) mg/dL Total Bilirubin 0.3 (0.2-1.3) mg/dL AST 22 (14-36) U/L ALT 16 (4-34) U/L Alkaline Phosphatase 96 (38-126) U/L Total Protein 7.1 (6.3-8.2) g/dL Albumin 4.0 (3.5-5.0) g/dL Urine Color Yellow Urine Appearance Clear (Clear) Urine pH 6.0 (5.0-8.0) Ur Specific [place] 1.012 (1.001-1.035) Urine Protein Negative (Negative) Urine Glucose (UA) Negative (Negative) Urine Ketones Negative (Negative) Urine Blood Negative (Negative) Urine Nitrite Negative (Negative) Urine Bilirubin Negative (Negative) Urine Urobilinogen <2.0 (<2.0) mg/dL Ur Leukocyte Esterase Large H (Negative) Urine RBC <1 (0-5) /hpf Urine WBC 59 H (0-5) /hpf Urine WBC Clumps Occasional H (None) /hpf Ur Squamous Epith Cells <1 (0-4) /hpf Urine Bacteria Rare H (None) /hpf Hyaline Casts 4 H (0-2) /lpf Urine Mucus Rare H (None) /hpf Disposition Clinical Impression: Urinary tract infection Disposition: HOME SELF-CARE Condition: Good Instructions (If sedation given, give patient instructions): Urinary Tract Infection in Women (ED) Additional Instructions: Follow-up with PCP. Report back to ER with any new or worsening symptoms. Take medication as prescribed. Prescriptions: Ciprofloxacin HCl [Cipro] 250 mg PO BID 3 Days #6 tab Is patient prescribed a controlled substance at d/c from ED?: No Referrals: Ngoc Schwarz MD [Primary Care Provider] - 1-2 days Time of Disposition: 20:48
[2022-07-30 19:06] LABS: Calcium 10.5 mg/dL (8.4-10.2); Potassium 4.2 mmol/L (3.5-5.1); Total Bilirubin 0.3 mg/dL (0.2-1.3); Total Protein 7.1 g/dL (6.3-8.2)
[2022-07-30 20:34] LABS: Appearance,Urine Clear (Clear); Bacteria,Urine Rare /hpf; Bilirubin,Urine Negative (Negative); Blood,Urine Negative (Negative); Color,Urine Yellow; Glucose,Urine (UA) Negative (Negative); Hyaline Casts,Urine 4 /lpf (0-2); Ketones,Urine Negative (Negative); Leukocyte Esterase,Urine Large (Negative); Mucus,Urine Rare /hpf; Nitrite,Urine Negative (Negative); Protein,Urine Negative (Negative); RBC,Urine <1 /hpf (0-5); Specific Gravity,Urine 1.012 (1.001-1.035); Squamous Epithelial Cell,Urine <1 /hpf (0-4); Urobilinogen,Urine <2.0 mg/dL (<2.0); WBC,Urine 59 /hpf (0-5)
== END 2022-07-30 20:56 | disposition home or self-care (01) ==
LOC: EC 18:00
DX: N39.0 Urinary tract infection, site not specified (principal); I10 Essential (primary) hypertension; J44.9 Chronic obstructive pulmonary disease, unspecified; K21.9 Gastro-esophageal reflux disease without esophagitis; F32.A Depression, unspecified; F41.9 Anxiety disorder, unspecified; Z79.899 Other long term (current) drug therapy; Z86.73 Personal history of transient ischemic attack (TIA), and cerebral infarction without residual deficits; Z87.891 Personal history of nicotine dependence; Z88.0 Allergy status to penicillin; Z88.1 Allergy status to other antibiotic agents; Z88.2 Allergy status to sulfonamides; Z88.6 Allergy status to analgesic agent; Z88.8 Allergy status to other drugs, medicaments and biological substances
CPT/HCPCS: 36415; 80053; 81001; 85025; 87077; 87086; 87186; 99283

== ENCOUNTER → 2023-07-12 | Outpatient (CLI) | payer MEDICARE ==
[2023-07-12 18:55] LABS: HCT 32.7 % (37.2-46.3); HGB 9.7 g/dL (12.0-15.0); MCH 27.2 pg (27.0-32.0); MCHC 29.7 g/dL (32.0-37.0); MCV 91.6 FL (80.0-97.0); Mean Platelet Volume 9.5 FL (9.5-12.2); NRBC Per 100 WBC 0 X 10*3/uL (0.00-0.01); Platelet Count 429 X 10*3/uL (140-440); RBC 3.57 X 10*6/uL (4.10-5.20); RDW 14.2 % (11.5-14.5); WBC 14.04 X 10*3/uL (4.50-10.00)
[2023-07-12 19:13] LABS: BUN/Creat Ratio 18.46 Ratio (12.00-20.00); Calcium 10.6 mg/dL (8.7-10.3); Carbon Dioxide 25.6 mmol/L (21.6-31.8); Chloride 103 mmol/L (96-109); Glucose 125 mg/dL (70-110); Potassium 4.7 mmol/L (3.5-5.5); Sodium 141 mmol/L (135-145)
== END | disposition home or self-care (01) ==
LOC: LABWHC1 14:19
PROVIDERS: ATTEND Internal Medicine Cardiovascular Disease
DX: R53.83 Other fatigue (principal)
CPT/HCPCS: 36415; 80048; 84443; 85027

== ENCOUNTER → 2023-11-22 | Outpatient (CLI) | payer MEDICARE | END | disposition home or self-care (01) | LOC: LABPRL 13:59 | PROVIDERS: ATTEND Family Medicine | DX: R79.89 Other specified abnormal findings of blood chemistry (principal) | CPT/HCPCS: 80053; 83540; 83550; 85025 ==

== ENCOUNTER 2024-08-05 09:33 | Emergency (ER) | payer MEDICARE ==
--- NOTE | 2024-08-05 10:34 | ED ---
General Adult HPI - General Chief complaint: Weakness Stated complaint: Weakness Time Seen by Provider: 08/05/24 09:36 Source: patient, EMS Mode of arrival: EMS Limitations: no limitations - History of Present Illness Initial comments: Dictation was produced using [employer] dictation software. please excuse any grammatical, word or spelling errors. Chief Complaint: 83-year-old female presents to the ER for weakness and frequent falls History of Present Illness: Patient is 83-year-old female brought in by EMS she lives at home with her daughter. Patient states she is here today for feeling weak. She has fallen multiple times within the last several weeks. Patient denies any pain complaints. She states most recently she fell this morning. Denies any abdominal pain. No nausea. Denies any constitutional symptoms. The ROS documented in this emergency department record has been reviewed and confirmed by me. Those systems with pertinent positive or negative responses have been documented in the HPI. All other systems are other negative and/or noncontributory. - Related Data Home Medications Medication Instructions Recorded Confirmed Donepezil HCl [Aricept] 5 mg PO DAILY 04/12/17 05/13/22 buPROPion XL [Wellbutrin XL] 300 mg PO DAILY 04/24/17 05/13/22 DULoxetine HCL [Cymbalta] 30 mg PO DAILY 11/05/19 05/13/22 Montelukast Sodium [Singulair] 10 mg PO DAILY 11/05/19 05/13/22 Famotidine [Pepcid] 40 mg PO DAILY 05/13/22 05/13/22 Pantoprazole Sodium [Protonix] 40 mg PO DAILY 05/13/22 05/13/22 Torsemide [Demadex] 10 mg PO DAILY 05/13/22 05/13/22 Previous Rx's Medication Instructions Recorded Losartan [Cozaar] 25 mg PO DAILY tab 11/17/17 atenoloL 25 mg PO DAILY #30 tablet 11/17/17 Aspirin 81 mg PO DAILY tab 05/18/22 Clopidogrel [Plavix] 75 mg PO DAILY tab 05/18/22 Mupirocin 2% Oint [Bactroban 2% 1 applic TOPICAL TID each 05/18/22 Oint] Ciprofloxacin HCl [Cipro] 250 mg PO BID 3 Days #6 tab 07/30/22 Allergies Allergy/AdvReac Type Severity Reaction Status Date / Time celecoxib [From Celebrex] Allergy Rash/Hives Verified 08/05/24 09:40 cephalexin monohydrate Allergy Rash/Hives Verified 08/05/24 09:40 [From Keflex] Penicillins Allergy Rash/Hives Verified 08/05/24 09:40 Sulfa (Sulfonamide Allergy Rash/Hives Verified 08/05/24 09:40 Antibiotics) Fibskzl-HFG-VoW Reductase AdvReac MUSCLE PAIN Verified 08/05/24 09:40 Inhibitor [Fteayvj-Zzn-Xmx Reductase Inhibitor] Review of Systems ROS Statement: Those systems with pertinent positive or pertinent negative responses have been documented in the HPI. ROS Other: All systems not noted in ROS Statement are negative. Past Medical History Past Medical History: Cancer, COPD, CVA/TIA, GERD/Reflux, Hyperlipidemia, Hypertension, Osteoarthritis (OA) Additional Past Medical History / Comment(s): HIATAL HERNIA, HX SKIN CANCER , HEART MURMUR, BACK & HIP PAIN- USES CANE PRN. History of Any Multi-Drug Resistant Organisms: None Reported Past Surgical History: Bariatric Surgery, Bladder Surgery, Cardiac Valve Replacement, Heart Catheterization, Joint Replacement, Orthopedic Surgery, Tonsillectomy Additional Past Surgical History / Comment(s): left shoulder surgery, rt knee replacement, bladder suspension, LAP BAND INSERTED AND REMOVED AFTER 1 YEAR., HEART CATH([facility]-2009?) TRH, right hip replacement; Aortic Valve replaced 03/2020 at [facility] Past Anesthesia/Blood Transfusion Reactions: No Reported Reaction, Motion Sickness Past Psychological History: Anxiety, Depression Smoking Status: Former smoker Past Alcohol Use History: Occasional Past Drug Use History: None Reported - Past Family History Father Family Medical History: Congestive Heart Failure (CHF), CVA/TIA Additional Family Medical History / Comment(s): CABG Mother Family Medical History: No Reported History General Exam - General Exam Comments Initial Comments: PHYSICAL EXAM: General Impression: Alert and oriented x3, not in acute distress HEENT: Normocephalic atraumatic, extra-ocular movements intact, pupils equal and reactive to light bilaterally, mucous membranes moist. Cardiovascular: Heart regular rate and rhythm Chest: Able to complete full sentences, no retractions, no tachypnea Abdomen: abdomen soft, non-tender, non-distended, no organomegaly Musculoskeletal: Pulses present and equal in all extremities, no peripheral edema Motor: no focal deficits noted Neurological: CN II-XII grossly intact, no focal motor or sensory deficits noted Skin: Intact with no visualized rashes Psych: Normal affect and mood Limitations: no limitations Course Vital Signs 08/05/24 08/05/24 08/05/24 09:37 09:40 13:16 Temperature 98.7 F Pulse Rate 70 70 Respiratory 20 18 Rate Blood Pressure 160/66 129/72 O2 Sat by Pulse 94 L 97 Oximetry EKG Findings - EKG Comments: EKG Findings:: My EKG interpretation: Ventricular rate 66, sinus rhythm, NV interval 168, QRS 102, QTc 415. No NV prolongation, no QTC prolongation, no ST or T-wave changes noted. EKG compared to May 15, 2022 showing no changes. Overall, this EKG is unremarkable Medical Decision Making - Medical Decision Making Was pt. sent in by a medical professional or institution (, PA, V BELT COVERER, urgent care, hospital, or penitentiary...) When possible be specific @ -No Did you speak to anyone other than the patient for history (EMS, parent, family, police, friend...)? What history was obtained from this source @ -No Did you review nursing and triage notes (agree or disagree)? Why? @ -I reviewed and agree with nursing and triage notes Were old charts reviewed (outside hosp., previous admission, EMS record, old EKG, old radiological studies, urgent care reports/EKG's, penitentiary records)? Report findings @ -No old charts were reviewed Differential Diagnosis (chest pain, altered mental status, abdominal pain women, abdominal pain men, vaginal bleeding, musculoskeletal, weakness, fever, dyspnea, syncope, headache, dizziness, GI bleed, back pain, seizure, CVA, palpatations, mental health)? @ -Differential Weakness: Hypoglycemia, shock, sepsis, hyponatremia, anemia, infection, AR, ETOH, adverse medicine reaction, overdose, stroke, this is not meant to be an all-inclusive list. EKG interpreted by me (3pts min.). @ -See above X-rays interpreted by me (1pt min.). @ -Chest and pelvis x-ray shows no acute processes CT interpreted by me (1pt min.). @ -CT brain is nonacute U/S interpreted by me (1pt. min.). @ -None done What testing was considered but not performed or refused? (CT, X-rays, U/S, labs)? Why? @ -None What meds were considered but not given or refused? Why? @ -None Was smoking cessation discussed for >3mins.? @ -No Were there social determinants of health that impacted care today? How? (Homelessness, low income, unemployed, alcoholism, drug addiction, transportation, low edu. Level, literacy, decrease access to med. care, senior living, rehab)? @ -No Was there de-escalation of care discussed even if they declined (Discuss DNR or withdrawal of care, Hospice)? DNR status @ -No What co-morbidities impacted this encounter? (DM, HTN, Smoking, COPD, CAD, Cancer, CVA, ARF, Chemo, Hep., AIDS, mental health diagnosis, sleep apnea, morbid obesity)? @ -None Was patient admitted / discharged? Hospital course, mention meds given and route, prescriptions, significant lab abnormalities, going to OR and other pertinent info. @ -83-year-old female with weakness likely secondary to poor musculoskeletal function. Vital signs stable. EKG is unremarkable. Labs and imaging are ne gative. Daughter at the bedside lives with patient. Patient requesting discharge. Patient stable in no acute distress. Advised close follow-up with primary care doctor. Did you discuss the management of the patient with other professionals (professionals i.e. , PA, V BELT COVERER, lab, RT, psych nurse, social contact worker, tire design engineer, teacher, aerospace engineer officer armament, nurse outreach case manager)? Give summary @ -No Was critical care preformed (if so, how long)? @ -No Undiagnosed new problem with uncertain prognosis? @ -No Drug Therapy requiring intensive monitoring for toxicity (Heparin, Nitro, Insulin, Cardizem)? @ -No Were any procedures done? @ -No Diagnosis/symptom? Acute, or Chronic, or Acute on Chronic? Uncomplicated (without systemic symptoms) or Complicated (systemic symptoms)? @ -Generalized weakness Side effects of treatment? @ -No Exacerbation, Progression, or Severe Exacerbation? @ -No Poses a threat to life or bodily function? How? (Chest pain, USA, AR, pneumonia, PE, COPD, DKA, ARF, appy, cholecystitis, CVA, Diverticulitis, Homicidal, Suicidal, threat to staff... and all critical care pts) @ -No - Lab Data Result diagrams: 04/28/25 10:32 08/05/24 10:32 Lab Results 08/05/24 08/05/24 08/05/24 Range/Units 10:32 10:32 10:32 WBC 13.42 H (4.50-10.00) 10*3/uL RBC 3.36 L (4.10-5.20) 10*6/uL Hgb 10.1 L (12.0-15.0) g/dL Hct 32.7 L (37.2-46.3) % MCV 97.3 H (80.0-97.0) fL MCH 30.1 (27.0-32.0) pg MCHC 30.9 L (32.0-37.0) g/dL Plt Count 344 (140-440) 10*3/uL MPV 9.3 L (9.5-12.2) fL Immature Gran % (Auto) 0.4 % Neutrophils % 79.0 % Lymphocytes % 9.6 % Monocytes % 6.6 % Eosinophils % 3.7 % Basophils % 0.7 % Immature Gran # 0.06 H (0.00-0.04) 10*3/uL Neutrophils # 10.60 H (1.80-7.70) 10*3/uL Lymphocytes # 1.29 (0.90-5.00) 10*3/uL Monocytes # 0.89 (0.20-1.00) 10*3/uL Eosinophils # 0.49 H (0.04-0.35) 10*3/uL Basophils # 0.09 (0.00-0.10) 10*3/uL Sodium 138 (137-145) mmol/L Potassium 4.2 (3.5-5.1) mmol/L Chloride 102 (98-107) mmol/L Carbon Dioxide 28 (22-30) mmol/L Anion Gap 8 mmol/L BUN 24 H (7-17) mg/dL Creatinine 1.14 H (0.52-1.04) mg/dL Est GFR (CKD-EPI)AfAm 52 (>60 ml/min/1.73 sqM) Est GFR (CKD-EPI)NonAf 45 (>60 ml/min/1.73 sqM) Glucose 135 H (74-99) mg/dL Calcium 11.2 H (8.4-10.2) mg/dL Total Bilirubin 0.4 (0.2-1.3) mg/dL AST 17 (14-36) U/L ALT 17 (4-34) U/L Alkaline Phosphatase 113 (38-126) U/L Troponin I <0.012 (0.000-0.034) ng/mL Total Protein 6.6 (6.3-8.2) g/dL Albumin 3.7 (3.5-5.0) g/dL Urine Color Urine Appearance (Clear) Urine pH (5.0-8.0) Ur Specific [place] (1.001-1.035) Urine Protein (Negative) Urine Glucose (UA) (Negative) Urine Ketones (Negative) Urine Blood (Negative) Urine Nitrite (Negative) Urine Bilirubin (Negative) Urine Urobilinogen (<2.0) mg/dL Ur Leukocyte Esterase (Negative) 08/05/24 Range/Units 14:00 WBC (4.50-10.00) 10*3/uL RBC (4.10-5.20) 10*6/uL Hgb (12.0-15.0) g/dL Hct (37.2-46.3) % MCV (80.0-97.0) fL MCH (27.0-32.0) pg MCHC (32.0-37.0) g/dL Plt Count (140-440) 10*3/uL MPV (9.5-12.2) fL Immature Gran % (Auto) % Neutrophils % % Lymphocytes % % Monocytes % % Eosinophils % % Basophils % % Immature Gran # (0.00-0.04) 10*3/uL Neutrophils # (1.80-7.70) 10*3/uL Lymphocytes # (0.90-5.00) 10*3/uL Monocytes # (0.20-1.00) 10*3/uL Eosinophils # (0.04-0.35) 10*3/uL Basophils # (0.00-0.10) 10*3/uL Sodium (137-145) mmol/L Potassium (3.5-5.1) mmol/L Chloride (98-107) mmol/L Carbon Dioxide (22-30) mmol/L Anion Gap mmol/L BUN (7-17) mg/dL Creatinine (0.52-1.04) mg/dL Est GFR (CKD-EPI)AfAm (>60 ml/min/1.73 sqM) Est GFR (CKD-EPI)NonAf (>60 ml/min/1.73 sqM) Glucose (74-99) mg/dL Calcium (8.4-10.2) mg/dL Total Bilirubin (0.2-1.3) mg/dL AST (14-36) U/L ALT (4-34) U/L Alkaline Phosphatase (38-126) U/L Troponin I (0.000-0.034) ng/mL Total Protein (6.3-8.2) g/dL Albumin (3.5-5.0) g/dL Urine Color Colorless Urine Appearance Clear (Clear) Urine pH 5.5 (5.0-8.0) Ur Specific [place] 1.008 (1.001-1.035) Urine Protein Negative (Negative) Urine Glucose (UA) Negative (Negative) Urine Ketones Negative (Negative) Urine Blood Negative (Negative) Urine Nitrite Negative (Negative) Urine Bilirubin Negative (Negative) Urine Urobilinogen <2.0 (<2.0) mg/dL Ur Leukocyte Esterase Negative (Negative) Disposition Clinical Impression: Fall Disposition: HOME SELF-CARE Condition: Good Instructions (If sedation given, give patient instructions): Fall Prevention for Older Adults (ED) Is patient prescribed a controlled substance at d/c from ED?: No Referrals: Ngoc Schwarz MD [Primary Care Provider] - 1-2 days Time of Disposition: 14:42
[2024-08-05 10:37] VITALS: TEMP 98.7
[2024-08-05 10:37] LABS: Basophils # (A) 0.09 10*3/uL (0.00-0.10); Basophils % (A) 0.7 %; Eosinophils # (A) 0.49 10*3/uL (0.04-0.35); Eosinophils % (A) 3.7 %; HCT 32.7 % (37.2-46.3); HGB 10.1 g/dL (12.0-15.0); Lymphocytes # (A) 1.29 10*3/uL (0.90-5.00); Lymphocytes % (A) 9.6 %; MCH 30.1 pg (27.0-32.0); MCHC 30.9 g/dL (32.0-37.0); MCV 97.3 fL (80.0-97.0); Mean Platelet Volume 9.3 fL (9.5-12.2); Monocytes # (A) 0.89 10*3/uL (0.20-1.00); Monocytes % (A) 6.6 %; Platelet Count 344 10*3/uL (140-440); RBC 3.36 10*6/uL (4.10-5.20); RDW 16.7 % (11.5-14.5); WBC 13.42 10*3/uL (4.50-10.00)
[2024-08-05 10:55] LABS: ALT 17 U/L (4-34); AST 17 U/L (14-36); African American GFR (CKD) 52 (>60 ml/min/1.73 sqM); Albumin 3.7 g/dL (3.5-5.0); Alkaline Phosphatase 113 U/L (38-126); Anion Gap 8 mmol/L; Blood Urea Nitrogen 24 mg/dL (7-17); Calcium 11.2 mg/dL (8.4-10.2); Carbon Dioxide 28 mmol/L (22-30); Chloride 102 mmol/L (98-107); Glucose 135 mg/dL (74-99); Non-African American GFR(CKD) 45 (>60 ml/min/1.73 sqM); Potassium 4.2 mmol/L (3.5-5.1); Sodium 138 mmol/L (137-145); Total Bilirubin 0.4 mg/dL (0.2-1.3); Total Protein 6.6 g/dL (6.3-8.2)
--- NOTE | 2024-08-05 11:14 | XR ---
EXAMINATION TYPE: XR chest 1V portable DATE OF EXAM: 08/05/2024 11:01 AM COMPARISON: 05/13/2022 CLINICAL INDICATION: Female, 83 years old with history of frequent falls, TECHNIQUE: XR chest 1V portable views of the chest are obtained. FINDINGS: Demonstrated are scattered senescent parenchymal change. There is no evidence for focal infiltrate. The heart is stable. Hilar and mediastinal structures are within normal limits. Degenerative changes are seen of the dorsal spine. IMPRESSION: 1. Chronic changes without evidence for acute pulmonary disease. [facility], , 08/05/2024 11:12 AM
--- NOTE | 2024-08-05 11:14 | XR ---
EXAMINATION TYPE: XR pelvis AP view DATE OF EXAM: 08/05/2024 11:01 AM COMPARISON: 04/16/2021 CLINICAL INDICATION: Female, 83 years old with history of frequent falls, pain TECHNIQUE: XR pelvis AP view views were obtained FINDINGS: No evidence for fracture, dislocation or bony lesion. Total right hip prosthesis is intact and well seated. SI joints appear symmetric. IMPRESSION: No acute fracture or dislocation seen. [facility], , 08/05/2024 11:12 AM
--- NOTE | 2024-08-05 11:48 | CT ---
EXAMINATION TYPE: CT brain wo con DATE OF EXAM: 08/05/2024 11:19 AM COMPARISON: 05/14/2022. CLINICAL INDICATION: Female, 83 years old with history of frequent falls, Frequent falls, pain TECHNIQUE: Examination was done in axial plane without intravenous contrast. Coronal and sagittal r econstructions performed. CT DLP: 1170.4 mGycm, Automated exposure control for dose reduction was used. FINDINGS: There is no evidence of acute intracranial hemorrhage, acute ischemic changes, mass, mass-effect, or extra-axial fluid collection. There is no effacement of cerebral sulci or basal subarachnoid cister ns. There is mild hydrocephalus with Jasvir's ratio calculated at 0.36. There is no midline shift. Gra y-white matter distinction is preserved. Mild patchy white matter hypodensities. Atherosclerotic calc ifications within the carotid siphons Paranasal sinuses and mastoid air cells are well pneumatized. Orbits and globes are intact. IMPRESSION: Similar mild hydrocephalus probably on an ex vacuo basis. Correlate to exclude a component of NPH. No acute intracranial abnormality seen. [facility], Workstation: [email or web address], 08/05/2024 11:45 AM
[2024-08-05 13:18] VITALS: RESP 18
[2024-08-05 14:20] LABS: Appearance,Urine Clear (Clear); Bilirubin,Urine Negative (Negative); Blood,Urine Negative (Negative); Color,Urine Colorless; Glucose,Urine (UA) Negative (Negative); Ketones,Urine Negative (Negative); Leukocyte Esterase,Urine Negative (Negative); Nitrite,Urine Negative (Negative); PH, Urine 5.5 (5.0-8.0); Protein,Urine Negative (Negative); Specific Gravity,Urine 1.008 (1.001-1.035); Urobilinogen,Urine <2.0 mg/dL (<2.0)
[2024-08-05 15:16] VITALS: BP 159/89; PULSE 72
== END 2024-08-05 15:16 | disposition home or self-care (01) ==
LOC: EC 09:33
DX: R53.1 Weakness (principal); Z88.0 Allergy status to penicillin; Z88.1 Allergy status to other antibiotic agents; Z88.2 Allergy status to sulfonamides; Z88.6 Allergy status to analgesic agent; Z88.8 Allergy status to other drugs, medicaments and biological substances; Z87.891 Personal history of nicotine dependence; Z86.73 Personal history of transient ischemic attack (TIA), and cerebral infarction without residual deficits
CPT/HCPCS: 36415; 70450; 71045; 72170; 80053; 81003; 84484; 85025; 93005; 99285

== ENCOUNTER 2024-08-22 22:41 | Emergency (ER) | payer MEDICARE ==
[2024-08-22 22:49] VITALS: RESP 16; TEMP 99.4
[2024-08-22 22:58] LABS: Glucose,Whole Blood 172 mg/dL (70-110)
--- NOTE | 2024-08-22 23:07 | ED ---
General Adult HPI - General Chief complaint: Weakness Stated complaint: Weakness Time Seen by Provider: 08/22/24 22:44 Source: EMS Mode of arrival: EMS Limitations: no limitations - History of Present Illness Initial comments: Dictation was produced using [employer] dictation software. please excuse any grammatical, word or spelling errors. Chief Complaint: 84-year-old female brought in by EMS from home for weakness and black tarry stools History of Present Illness: Patient is 84-year-old female provides history present illness along with EMS. Patient allegedly sent to the emergency department for increasing weakness and black tarry stool for 7 days. Patient states she takes blood thinners however per EMS she does not take any blood thinners. Patient states EMS was called by patient's family. Denies any pain complaints. Denies any history of colonoscopy. The ROS documented in this emergency department record has been reviewed and confirmed by me. Those systems with pertinent positive or negative responses have been documented in the HPI. All other systems are other negative and/or noncontributory. - Related Data Home Medications Medication Instructions Recorded Confirmed Donepezil HCl [Aricept] 5 mg PO DAILY 04/12/17 05/13/22 buPROPion XL [Wellbutrin XL] 300 mg PO DAILY 04/24/17 05/13/22 DULoxetine HCL [Cymbalta] 30 mg PO DAILY 11/05/19 05/13/22 Montelukast Sodium [Singulair] 10 mg PO DAILY 11/05/19 05/13/22 Famotidine [Pepcid] 40 mg PO DAILY 05/13/22 05/13/22 Pantoprazole Sodium [Protonix] 40 mg PO DAILY 05/13/22 05/13/22 Torsemide [Demadex] 10 mg PO DAILY 05/13/22 05/13/22 Previous Rx's Medication Instructions Recorded Losartan [Cozaar] 25 mg PO DAILY tab 11/17/17 atenoloL 25 mg PO DAILY #30 tablet 11/17/17 Aspirin 81 mg PO DAILY tab 05/18/22 Clopidogrel [Plavix] 75 mg PO DAILY tab 05/18/22 Mupirocin 2% Oint [Bactroban 2% 1 applic TOPICAL TID each 05/18/22 Oint] Ciprofloxacin HCl [Cipro] 250 mg PO BID 3 Days #6 tab 07/30/22 Allergies Allergy/AdvReac Type Severity Reaction Status Date / Time celecoxib [From Celebrex] Allergy Rash/Hives Verified 08/22/24 22:49 cephalexin monohydrate Allergy Rash/Hives Verified 08/22/24 22:49 [From Keflex] Penicillins Allergy Rash/Hives Verified 08/22/24 22:49 Sulfa (Sulfonamide Allergy Rash/Hives Verified 08/22/24 22:49 Antibiotics) Klogdte-BAE-IgU Reductase AdvReac MUSCLE PAIN Verified 08/22/24 22:49 Inhibitor [Qygegam-Iyx-Sut Reductase Inhibitor] Review of Systems ROS Statement: Those systems with pertinent positive or pertinent negative responses have been documented in the HPI. ROS Other: All systems not noted in ROS Statement are negative. Past Medical History Past Medical History: Cancer, COPD, CVA/TIA, GERD/Reflux, Hyperlipidemia, Hypertension, Osteoarthritis (OA) Additional Past Medical History / Comment(s): HIATAL HERNIA, HX SKIN CANCER , HEART MURMUR, BACK & HIP PAIN- USES CANE PRN. History of Any Multi-Drug Resistant Organisms: None Reported Past Surgical History: Bariatric Surgery, Bladder Surgery, Cardiac Valve Replacement, Heart Catheterization, Joint Replacement, Orthopedic Surgery, Tonsillectomy Additional Past Surgical History / Comment(s): left shoulder surgery, rt knee replacement, bladder suspension, LAP BAND INSERTED AND REMOVED AFTER 1 YEAR., HEART CATH([facility]-2009?) TRH, right hip replacement; Aortic Valve replaced 03/2020 at [facility] Past Anesthesia/Blood Transfusion Reactions: No Reported Reaction, Motion Sickness Past Psychological History: Anxiety, Depression Smoking Status: Former smoker Past Alcohol Use History: Occasional Past Drug Use History: None Reported - Past Family History Father Family Medical History: Congestive Heart Failure (CHF), CVA/TIA Additional Family Medical History / Comment(s): CABG Mother Family Medical History: No Reported History General Exam - General Exam Comments Initial Comments: PHYSICAL EXAM: General Impression: Alert and oriented x3, not in acute distress HEENT: Normocephalic atraumatic, extra-ocular movements intact, pupils equal and reactive to light bilaterally, mucous membranes moist. Cardiovascular: Heart regular rate and rhythm Chest: Able to complete full sentences, no retractions, no tachypnea Abdomen: abdomen soft, non-tender, non-distended, no organomegaly Musculoskeletal: Pulses present and equal in all extremities, no peripheral edema Motor: no focal deficits noted Neurological: CN II-XII grossly intact, no focal motor or sensory deficits noted Skin: Intact with no visualized rashes Psych: Normal affect and mood Rectal exam: No gross blood, no melanotic stool Limitations: no limitations Course Vital Signs 08/22/24 08/23/24 08/23/24 22:43 00:44 01:00 Temperature 99.4 F Pulse Rate 88 87 76 Respiratory 16 16 16 Rate Blood Pressure 119/54 118/59 123/51 O2 Sat by Pulse 97 97 98 Oximetry EKG Findings - EKG Comments: EKG Findings:: My EKG interpretation: Ventricular rate 92, sinus rhythm, MI 159, QRS 105, QTc 422. No MI prolongation, no QTC prolongation, no ST or T-wave changes noted. EKG compared to July 28, 2024 showing no changes. Overall, this EKG is unremarkable Medical Decision Making - Medical Decision Making Was pt. sent in by a medical professional or institution (, PA, UNCLAIMED PROPERTY OFFICER, urgent care, hospital, or retirement...) When possible be specific @ -No Did you speak to anyone other than the patient for history (EMS, parent, family, police, friend...)? What history was obtained from this source @ -No Did you review nursing and triage notes (agree or disagree)? Why? @ -I reviewed and agree with nursing and triage notes Were old charts reviewed (outside hosp., previous admission, EMS record, old EKG, old radiological studies, urgent care reports/EKG's, retirement records)? Report findings @ -No old charts were reviewed Differential Diagnosis (chest pain, altered mental status, abdominal pain women, abdominal pain men, vaginal bleeding, musculoskeletal, weakness, fever, dyspnea, syncope, headache, dizziness, GI bleed, back pain, seizure, CVA, palpatations, mental health)? @ -Differential Weakness: Hypoglycemia, shock, sepsis, hyponatremia, anemia, infection, DE, ETOH, adverse medicine reaction, overdose, stroke, this is not meant to be an all-inclusive list. EKG interpreted by me (3pts min.). @ -See above X-rays interpreted by me (1pt min.). @ -None done CT interpreted by me (1pt min.). @ -None done U/S interpreted by me (1pt. min.). @ -None done What testing was considered but not performed or refused? (CT, X-rays, U/S, labs)? Why? @ -None What meds were considered but not given or refused? Why? @ -None Was smoking cessation discussed for >3mins.? @ -No Were there social determinants of health that impacted care today? How? (Homelessness, low income, unemployed, alcoholism, drug addiction, transportation, low edu. Level, literacy, decrease access to med. care, long term, r ehab)? @ -No Was there de-escalation of care discussed even if they declined (Discuss DNR or withdrawal of care, Hospice)? DNR status @ -No What co-morbidities impacted this encounter? (DM, HTN, Smoking, COPD, CAD, Cancer, CVA, ARF, Chemo, Hep., AIDS, mental health diagnosis, sleep apnea, morbid obesity)? @ -None Was patient admitted / discharged? Hospital course, mention meds given and route, prescriptions, significant lab abnormalities, going to OR and other pertinent info. @ -84-year-old female with no significant plaints presents to the ER for weakness and black and tarry stools. Vital signs stable. Rectal exam is unremarkable. Physical examination is otherwise benign. Labs unremarkable. Disposition options were discussed with daughter. Patient stood with assistance at the bedside able to stand and pivot. Daughter felt comfortable taking patient home. Did you discuss the management of the patient with other professionals (professionals i.e. , PA, UNCLAIMED PROPERTY OFFICER, lab, RT, psych nurse, secondary social studies teacher, policy services representative, teacher, event security officer, field nurse case manager)? Give summary @ -No Was critical care preformed (if so, how long)? @ -No Undiagnosed new problem with uncertain prognosis? @ -No Drug Therapy requiring intensive monitoring for toxicity (Heparin, Nitro, Insulin, Cardizem)? @ -No Were any procedures done? @ -No Diagnosis/symptom? Acute, or Chronic, or Acute on Chronic? Uncomplicated (without systemic symptoms) or Complicated (systemic symptoms)? @ -Weakness Side effects of treatment? @ -No Exacerbation, Progression, or Severe Exacerbation? @ -No Poses a threat to life or bodily function? How? (Chest pain, USA, DE, pneumonia, PE, COPD, DKA, ARF, appy, cholecystitis, CVA, Diverticulitis, Homicidal, Suicidal, threat to staff... and all critical care pts) @ -No - Lab Data Result diagrams: 08/22/24 22:50 08/22/24 22:50 Lab Results 08/22/24 08/22/24 08/22/24 Range/Units 22:50 22:50 22:50 WBC 15.60 H (4.50-10.00) 10*3/uL RBC 2.85 L (4.10-5.20) 10*6/uL Hgb 9.1 L (12.0-15.0) g/dL Hct 28.5 L (37.2-46.3) % MCV 100.0 H (80.0-97.0) fL MCH 31.9 (27.0-32.0) pg MCHC 31.9 L (32.0-37.0) g/dL Plt Count 354 (140-440) 10*3/uL MPV 9.4 L (9.5-12.2) fL Immature Gran % (Auto) 0.6 % Neutrophils % 78.6 % Lymphocytes % 9.7 % Monocytes % 9.1 % Eosinophils % 1.5 % Basophils % 0.5 % Immature Gran # 0.09 H (0.00-0.04) 10*3/uL Neutrophils # 12.25 H (1.80-7.70) 10*3/uL Lymphocytes # 1.52 (0.90-5.00) 10*3/uL Monocytes # 1.42 H (0.20-1.00) 10*3/uL Eosinophils # 0.24 (0.04-0.35) 10*3/uL Basophils # 0.08 (0.00-0.10) 10*3/uL PT 11.1 (10.0-12.5) sec INR 1.0 (<1.2) APTT 29.1 (22.0-30.0) sec Sodium 136 L (137-145) mmol/L Potassium 4.2 (3.5-5.1) mmol/L Chloride 102 (98-107) mmol/L Carbon Dioxide 23 (22-30) mmol/L Anion Gap 11 mmol/L BUN 31 H (7-17) mg/dL Creatinine 1.26 H (0.52-1.04) mg/dL Est GFR (CKD-EPI)AfAm 45 (>60 ml/min/1.73 sqM) Est GFR (CKD-EPI)NonAf 39 (>60 ml/min/1.73 sqM) Glucose 145 H (74-99) mg/dL POC Glucose (mg/dL) (70-110) mg/dL POC Glu Fiber Drier Operator ID Plasma Lactic Acid Tariq (0.7-2.0) mmol/L Calcium 10.4 H (8.4-10.2) mg/dL Magnesium 1.7 (1.6-2.3) mg/dL Total Bilirubin 0.3 (0.2-1.3) mg/dL AST 19 (14-36) U/L ALT 19 (4-34) U/L Alkaline Phosphatase 89 (38-126) U/L Troponin I (0.000-0.034) ng/mL Total Protein 5.5 L (6.3-8.2) g/dL Albumin 2.9 L (3.5-5.0) g/dL Urine Color Urine Appearance (Clear) Urine pH (5.0-8.0) Ur Specific [place] (1.001-1.035) Urine Protein (Negative) Urine Glucose (UA) (Negative) Urine Ketones (Negative) Urine Blood (Negative) Urine Nitrite (Negative) Urine Bilirubin (Negative) Urine Urobilinogen (<2.0) mg/dL Ur Leukocyte Esterase (Negative) Urine RBC (0-5) /hpf Urine WBC (0-5) /hpf Ur Squamous Epith Cells (0-4) /hpf Amorphous Sediment (None) /hpf Hyaline Casts (0-2) /lpf Urine Mucus (None) /hpf Stool Occult Blood (Negative) Influenza Type A (PCR) (Not Detectd) Influenza Type B (PCR) (Not Detectd) RSV (PCR) (Not Detectd) SARS-CoV-2 (PCR) (Not Detectd) 08/22/24 08/22/24 08/22/24 Range/Units 22:50 22:50 22:57 WBC (4.50-10.00) 10*3/uL RBC (4.10-5.20) 10*6/uL Hgb (12.0-15.0) g/dL Hct (37.2-46.3) % MCV (80.0-97.0) fL MCH (27.0-32.0) pg MCHC (32.0-37.0) g/dL Plt Count (140-440) 10*3/uL MPV (9.5-12.2) fL Immature Gran % (Auto) % Neutrophils % % Lymphocytes % % Monocytes % % Eosinophils % % Basophils % % Immature Gran # (0.00-0.04) 10*3/uL Neutrophils # (1.80-7.70) 10*3/uL Lymphocytes # (0.90-5.00) 10*3/uL Monocytes # (0.20-1.00) 10*3/uL Eosinophils # (0.04-0.35) 10*3/uL Basophils # (0.00-0.10) 10*3/uL PT (10.0-12.5) sec INR (<1.2) APTT (22.0-30.0) sec Sodium (137-145) mmol/L Potassium (3.5-5.1) mmol/L Chloride (98-107) mmol/L Carbon Dioxide (22-30) mmol/L Anion Gap mmol/L BUN (7-17) mg/dL Creatinine (0.52-1.04) mg/dL Est GFR (CKD-EPI)AfAm (>60 ml/min/1.73 sqM) Est GFR (CKD-EPI)NonAf (>60 ml/min/1.73 sqM) Glucose (74-99) mg/dL POC Glucose (mg/dL) 172 H (70-110) mg/dL POC Glu Fiber Drier Operator ESVIN Chapman Plasma Lactic Acid Tariq 1.9 (0.7-2.0) mmol/L Calcium (8.4-10.2) mg/dL Magnesium (1.6-2.3) mg/dL Total Bilirubin (0.2-1.3) mg/dL AST (14-36) U/L ALT (4-34) U/L Alkaline Phosphatase (38-126) U/L Troponin I <0.012 (0.000-0.034) ng/mL Total Protein (6.3-8.2) g/dL Albumin (3.5-5.0) g/dL Urine Color Urine Appearance (Clear) Urine pH (5.0-8.0) Ur Specific Green[place] (1.001-1.035) Urine Protein (Negative) Urine Glucose (UA) (Negative) Urine Ketones (Negative) Urine Blood (Negative) Urine Nitrite (Negative) Urine Bilirubin (Negative) Urine Urobilinogen (<2.0) mg/dL Ur Leukocyte Esterase (Negative) Urine RBC (0-5) /hpf Urine WBC (0-5) /hpf Ur Squamous Epith Cells (0-4) /hpf Amorphous Sediment (None) /hpf Hyaline Casts (0-2) /lpf Urine Mucus (None) /hpf Stool Occult Blood (Negative) Influenza Type A (PCR) (Not Detectd) Influenza Type B (PCR) (Not Detectd) RSV (PCR) (Not Detectd) SARS-CoV-2 (PCR) (Not Detectd) 08/22/24 08/22/24 08/23/24 Range/Units 23:27 23:27 00:30 WBC (4.50-10.00) 10*3/uL RBC (4.10-5.20) 10*6/uL Hgb (12.0-15.0) g/dL Hct (37.2-46.3) % MCV (80.0-97.0) fL MCH (27.0-32.0) pg MCHC (32.0-37.0) g/dL Plt Count (140-440) 10*3/uL MPV (9.5-12.2) fL Immature Gran % (Auto) % Neutrophils % % Lymphocytes % % Monocytes % % Eosinophils % % Basophils % % Immature Gran # (0.00-0.04) 10*3/uL Neutrophils # (1.80-7.70) 10*3/uL Lymphocytes # (0.90-5.00) 10*3/uL Monocytes # (0.20-1.00) 10*3/uL Eosinophils # (0.04-0.35) 10*3/uL Basophils # (0.00-0.10) 10*3/uL PT (10.0-12.5) sec INR (<1.2) APTT (22.0-30.0) sec Sodium (137-145) mmol/L Potassium (3.5-5.1) mmol/L Chloride (98-107) mmol/L Carbon Dioxide (22-30) mmol/L Anion Gap mmol/L BUN (7-17) mg/dL Creatinine (0.52-1.04) mg/dL Est GFR (CKD-EPI)AfAm (>60 ml/min/1.73 sqM) Est GFR (CKD-EPI)NonAf (>60 ml/min/1.73 sqM) Glucose (74-99) mg/dL POC Glucose (mg/dL) (70-110) mg/dL POC Glu Fiber Drier Operator ID Plasma Lactic Acid Tariq (0.7-2.0) mmol/L Calcium (8.4-10.2) mg/dL Magnesium (1.6-2.3) mg/dL Total Bilirubin (0.2-1.3) mg/dL AST (14-36) U/L ALT (4-34) U/L Alkaline Phosphatase (38-126) U/L Troponin I (0.000-0.034) ng/mL Total Protein (6.3-8.2) g/dL Albumin (3.5-5.0) g/dL Urine Color Yellow Urine Appearance Clear (Clear) Urine pH 5.5 (5.0-8.0) Ur Specific [place] 1.021 (1.001-1.035) Urine Protein Negative (Negative) Urine Glucose (UA) Negative (Negative) Urine Ketones Negative (Negative) Urine Blood Negative (Negative) Urine Nitrite Negative (Negative) Urine Bilirubin Negative (Negative) Urine Urobilinogen <2.0 (<2.0) mg/dL Ur Leukocyte Esterase Small H (Negative) Urine RBC 1 (0-5) /hpf Urine WBC 24 H (0-5) /hpf Ur Squamous Epith Cells 3 (0-4) /hpf Amorphous Sediment Occasional H (None) /hpf Hyaline Casts 28 H (0-2) /lpf Urine Mucus Rare H (None) /hpf Stool Occult Blood Negative (Negative) Influenza Type A (PCR) Not Detected (Not Detectd) Influenza Type B (PCR) Not Detected (Not Detectd) RSV (PCR) Not Detected (Not Detectd) SARS-CoV-2 (PCR) Not Detected (Not Detectd) Disposition Clinical Impression: Weakness Disposition: HOME SELF-CARE Condition: Fair Instructions (If sedation given, give patient instructions): Weakness (ED) Is patient prescribed a controlled substance at d/c from ED?: No Referrals: Ngoc Schwarz MD [Primary Care Provider] - 1-2 days Time of Disposition: 01:42
[2024-08-22 23:47] LABS: Basophils # (A) 0.08 10*3/uL (0.00-0.10); Basophils % (A) 0.5 %; Eosinophils # (A) 0.24 10*3/uL (0.04-0.35); Eosinophils % (A) 1.5 %; HCT 28.5 % (37.2-46.3); HGB 9.1 g/dL (12.0-15.0); Lymphocytes # (A) 1.52 10*3/uL (0.90-5.00); Lymphocytes % (A) 9.7 %; MCH 31.9 pg (27.0-32.0); MCHC 31.9 g/dL (32.0-37.0); Mean Platelet Volume 9.4 fL (9.5-12.2); Monocytes # (A) 1.42 10*3/uL (0.20-1.00); Monocytes % (A) 9.1 %; Neutrophils # (A) 12.25 10*3/uL (1.80-7.70); Neutrophils % (A) 78.6 %; Platelet Count 354 10*3/uL (140-440); RBC 2.85 10*6/uL (4.10-5.20); RDW 17.7 % (11.5-14.5)
[2024-08-22 23:59] LABS: Partial Thromboplastin Time 29.1 sec (22.0-30.0); Prothrombin Time 11.1 sec (10.0-12.5)
[2024-08-23 00:11] LABS: ALT 19 U/L (4-34); AST 19 U/L (14-36); African American GFR (CKD) 45 (>60 ml/min/1.73 sqM); Albumin 2.9 g/dL (3.5-5.0); Alkaline Phosphatase 89 U/L (38-126); Anion Gap 11 mmol/L; Blood Urea Nitrogen 31 mg/dL (7-17); Calcium 10.4 mg/dL (8.4-10.2); Carbon Dioxide 23 mmol/L (22-30); Chloride 102 mmol/L (98-107); Glucose 145 mg/dL (74-99); Magnesium 1.7 mg/dL (1.6-2.3); Non-African American GFR(CKD) 39 (>60 ml/min/1.73 sqM); Potassium 4.2 mmol/L (3.5-5.1); Sodium 136 mmol/L (137-145); Total Bilirubin 0.3 mg/dL (0.2-1.3); Total Protein 5.5 g/dL (6.3-8.2)
[2024-08-23 00:41] LABS: Influenza A Not Detected (Not Detectd); Influenza B Not Detected (Not Detectd); RSV Not Detected (Not Detectd)
[2024-08-23 00:56] LABS: Amorphous Sediment,Urine Occasional /hpf; Appearance,Urine Clear (Clear); Bilirubin,Urine Negative (Negative); Blood,Urine Negative (Negative); Color,Urine Yellow; Glucose,Urine (UA) Negative (Negative); Hyaline Casts,Urine 28 /lpf (0-2); Ketones,Urine Negative (Negative); Leukocyte Esterase,Urine Small (Negative); Mucus,Urine Rare /hpf; Nitrite,Urine Negative (Negative); PH, Urine 5.5 (5.0-8.0); Protein,Urine Negative (Negative); RBC,Urine 1 /hpf (0-5); Specific Gravity,Urine 1.021 (1.001-1.035); Squamous Epithelial Cell,Urine 3 /hpf (0-4); Urobilinogen,Urine <2.0 mg/dL (<2.0); WBC,Urine 24 /hpf (0-5)
[2024-08-23 02:04] VITALS: BP 114/61; PULSE 82
== END 2024-08-23 02:04 | disposition home or self-care (01) ==
LOC: EC 22:41
DX: R53.1 Weakness (principal); Z86.73 Personal history of transient ischemic attack (TIA), and cerebral infarction without residual deficits; Z87.891 Personal history of nicotine dependence; Z88.0 Allergy status to penicillin; Z88.1 Allergy status to other antibiotic agents; Z88.2 Allergy status to sulfonamides; Z88.6 Allergy status to analgesic agent; Z88.8 Allergy status to other drugs, medicaments and biological substances
CPT/HCPCS: 36415; 80053; 81001; 82272; 83605; 83735; 84484; 85025; 85610; 85730; 87636; 93005; 99285